=== PATIENT | female | born 1945 | race Caucasian/White ===

== ENCOUNTER → 2016-10-13 | Outpatient (CLI) | payer MEDICARE, BC ==
--- NOTE | 2016-10-13 16:24 | US ---
EXAMINATION TYPE: US venous doppler duplex LE LT DATE OF EXAM: 10/13/2016 4:11 PM COMPARISON: NONE CLINICAL HISTORY: 454.9 VARICOSE VEINS,M79.662 PAIN IN LT LOWER LEG. Pain left leg with walking SIDE PERFORMED: Left TECHNIQUE: The lower extremity deep venous system is examined utilizing real time linear array sonog aleida with graded compression, doppler sonography and color-flow sonography. VESSELS IMAGED: External Iliac Vein (EIV) Common Femoral Vein Deep Femoral Vein Greater Saphenous Vein * Femoral Vein Popliteal Vein Small Saphenous Vein * Proximal Calf Veins (* superficial vessels) Left Leg: No evidence of DVT, complex anechoic area left popliteal fossa = 3.0 x 1.1 x 2.3cm IMPRESSION: Grayscale, color doppler, spectral doppler imaging performed of the deep veins of the lo wer extremities. There is normal flow, compressibility, vascular waveforms bilaterally. No deep ruel ous thrombosis at or above the left knee. Semimembranosus gastrocnemius cyst present within the popli teal fossa.
== END | disposition home or self-care (01) ==
LOC: RADUSWWP 15:43
PROVIDERS: ATTEND Internal Medicine
DX: M71.22 Synovial cyst of popliteal space [Baker], left knee (principal); M79.662 Pain in left lower leg

== ENCOUNTER → 2018-07-21 | Outpatient (CLI) | payer MEDICARE, BC ==
--- NOTE | 2018-07-21 14:30 | US ---
EXAMINATION TYPE: US kidneys/renal and bladder DATE OF EXAM: 07/21/2018 COMPARISON: NONE CLINICAL HISTORY: R31.9 HEMATURIA. EXAM MEASUREMENTS: Right Kidney: 10.3 x 3.7 x 5.1 cm Left Kidney: 10.4 x 4.8 x 3.5 cm Right Kidney: No hydronephrosis or masses seen Left Kidney: No hydronephrosis or masses seen Bladder: wnl Bilateral Jets seen: Yes There is no evidence for hydronephrosis at this point in time. No nephrolithiasis is seen. No tuan s are identified. The urinary bladder is anechoic. Bilateral ureteral jets are seen. IMPRESSION: No sonographic evidence of nephrolithiasis or hydronephrosis. No suspicious renal mass is seen.
== END | disposition home or self-care (01) ==
LOC: RADUSWWP 12:39
PROVIDERS: ATTEND Internal Medicine
DX: R31.9 Hematuria, unspecified (principal)
CPT/HCPCS: 76770

== ENCOUNTER 2019-05-08 06:46 | Emergency (ER) | payer MEDICARE, BC ==
[2019-05-08 06:54] VITALS: RESP 18
[2019-05-08] MEDS ORDERED: MORPHINE SULFATE 4 MG/ML SYRINGE IM STA (07:00)
--- NOTE | 2019-05-08 07:06 | ED ---
Upper Extremity HPI - General Chief Complaint: Extremity Injury, Upper Stated Complaint: Fall, Arm injury Time Seen by Provider: 05/08/19 06:55 Source: patient, family, RN notes reviewed Mode of arrival: wheelchair Limitations: no limitations - History of Present Illness Initial Comments: This is a 74-year-old female presents emergency Department chief complaint right shoulder pain. Patient states that she was coming up her back steps vomiting and on-call states that she tripped falling forward striking her shoulder into a brick wall. Patient states she has severe pain in her right shoulder no significant head injury no loss conscious no headache, dizziness, neck pain. She is right-hand dominant no prior injuries. She states her arm feels tingly at this time states that she has full range motion of her hand. Patient hasn't went of lower extremity injury. - Related Data Allergies Allergy/AdvReac Type Severity Reaction Status Date / Time Penicillins Allergy Rash/Hives Verified 05/08/19 06:54 Review of Systems ROS Statement: Those systems with pertinent positive or pertinent negative responses have been documented in the HPI. ROS Other: All systems not noted in ROS Statement are negative. Past Medical History Past Medical History: Hyperlipidemia History of Any Multi-Drug Resistant Organisms: None Reported Past Surgical History: No Surgical Hx Reported Past Psychological History: No Psychological Hx Reported Smoking Status: Never smoker Past Alcohol Use History: None Reported Past Drug Use History: None Reported General Exam Limitations: no limitations General appearance: alert, in no apparent distress Head exam: Present: atraumatic, normocephalic, normal inspection Eye exam: Present: normal appearance, PERRL, EOMI. Absent: scleral icterus, conjunctival injection, periorbital swelling ENT exam: Present: normal exam, normal oropharynx, mucous membranes moist, TM's normal bilaterally, normal external ear exam Neck exam: Present: normal inspection, full ROM. Absent: tenderness, meningismus, lymphadenopathy Respiratory exam: Present: normal lung sounds bilaterally. Absent: respiratory distress, wheezes, rales, rhonchi, stridor Cardiovascular Exam: Present: normal rhythm, tachycardia, normal heart sounds. Absent: systolic murmur, diastolic murmur, rubs, gallop, clicks Extremities exam: Present: other (Right shoulder there is no obvious deformity no abrasions no ecchymosis,, there is moderate tenderness with palpation at the proximal humeral region no tenderness of the right elbow, right forearm or wrist neurovascular intact with cap refill less than 2 seconds) Back exam: Present: normal inspection, full ROM. Absent: tenderness, paraspinal tenderness, vertebral tenderness Neurological exam: Present: alert, oriented X3, CN II-XII intact, reflexes normal. Absent: motor sensory deficit Course Vital Signs 05/08/19 06:49 Temperature 97.6 F Pulse Rate 116 H Respiratory 18 Rate Blood Pressure 113/76 O2 Sat by Pulse 99 Oximetry Procedures - Orthopedic Splinting/Casting Injury #1 Side: right Upper Extremity Injury Location: shoulder, long arm Upper Extremity Immobilizer: sling/shoulder immobilizer, posterior splint, synthetic pre-padded splint Medical Decision Making - Medical Decision Making Patient presented for right arm injury. Patient has a mid humeral fracture. She was placed on long-arm splint, sling and will follow-up with orthopedics. She is neurovascularly intact. Pain is improved. Disposition Clinical Impression: Closed fracture of shaft of right humerus Disposition: HOME SELF-CARE Condition: Stable Instructions (If sedation given, give patient instructions): Arm Fracture in Adults (ED) Additional Instructions: Please return to the Emergency Department if symptoms worsen or any other c oncerns. Is patient prescribed a controlled substance at d/c from ED?: No Referrals: Steve Rodrigez MD [Primary Care Provider] - 1-2 days Keo Clifford MD [STAFF PHYSICIAN] - 1-2 days Time of Disposition: 07:25
[2019-05-08] MEDS ORDERED: ACET/COD 300 MG/30 MG STARTER PACK 6 TAB BTL PO STA (07:22)
--- NOTE | 2019-05-08 07:33 | XR ---
EXAMINATION TYPE: XR shoulder limited RT DATE OF EXAM: 05/08/2019 CLINICAL HISTORY: Fall injury with pain. TECHNIQUE: Two views of the right shoulder are attempted. COMPARISON: None. FINDINGS: There is acute comminuted displaced fracture proximal diaphysis with roughly 9 mm medial d istraction of largest distal fracture fragment. Likely some posterior distraction difficult to accura tely measure on attempted lateral view. Glenohumeral joint is maintained. Incidental moderate narrowi ng of acromioclavicular joint. The visualized ribs are intact and unremarkable. IMPRESSION: There is acute comminuted displaced fracture proximal diaphysis right humerus. (Initial encounter closed type posttraumatic fracture)
[2019-05-08 07:40] VITALS: TEMP 97.9
[2019-05-08 08:00] VITALS: BP 110/98; PULSE 100
== END 2019-05-08 07:57 | disposition home or self-care (01) ==
LOC: EC 06:46
DX: S42.351A Displaced comminuted fracture of shaft of humerus, right arm, initial encounter for closed fracture (principal); Z88.0 Allergy status to penicillin; W01.198A Fall on same level from slipping, tripping and stumbling with subsequent striking against other object, initial encounter
CPT/HCPCS: 73020; 99283; 29105; 96372; J2270

== ENCOUNTER → 2019-05-09 | Outpatient (CLI) | payer MEDICARE, BC | END | disposition home or self-care (01) | LOC: LABWHC1 09:15 | PROVIDERS: ATTEND Orthopaedic Surgery | DX: M25.511 Pain in right shoulder (principal); S42.301A Unspecified fracture of shaft of humerus, right arm, initial encounter for closed fracture; E55.9 Vitamin D deficiency, unspecified | CPT/HCPCS: 36415; 82306 ==

== ENCOUNTER → 2019-05-11 | Outpatient (CLI) | payer MEDICARE, BC ==
[2019-05-11 11:30] LABS: African American GFR (CKD) >90 (>60 ml/min/1.73 sqM); Blood Urea Nitrogen 13 mg/dL (7-17); Non-African American GFR(CKD) 88 (>60 ml/min/1.73 sqM)
--- NOTE | 2019-05-11 13:25 | CT ---
EXAMINATION TYPE: CT abdomen pelvis w con DATE OF EXAM: 05/11/2019 COMPARISON: None HISTORY: Uterine ca CT DLP: 1457 mGycm Automated exposure control for dose reduction was used. CONTRAST: CT scan of the abdomen pelvis is performed with IV Contrast, patient injected with 100 ml mL of Isovu e 300. FINDINGS- LUNG BASES-linear changes involving the lungs are most typical scar or atelectasis. The heart is enla rged.. LIVER/GB- No gross abnormality is appreciated. PANCREAS- No gross abnormality is seen. SPLEEN- No gross abnormality is seen. ADRENALS- No gross abnormality is seen. KIDNEYS/BLADDER-no hydronephrosis. There are subcentimeter hypodensities within both kidneys which mo st likely related to simple cysts statistically. There is a 1 cm area within the mid pole lateral cor elsie which does not meet the criteria of a cyst and should be correlated with ultrasound. This could b e related to previous cortical loss.. BOWEL- no bowel dilatation. Normal appendix. LYMPH NODES- No greater than 1cm abdominal or pelvic lymph nodes areappreciated. 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 Scoliosis with multilevel hypertrophic and degenerative change of the vertebral column noted.. OTHER- the endometrium of the uterus is markedly thickened and abnormal. Mixed attenuation likely re presenting a component of hemorrhage. Underlying mass in the differential diagnosis. Report called to referring clinician. Correlate for history of endometrial pathology or neoplasm. Small fat-containing anterior abdominal wall hernia noted. IMPRESSION- 1. Markedly abnormal appearance the endometrium which appears to be distended measuring 4.8 cm mixed attenuation likely representing a component of hemorrhage. Underlying neoplastic process in the endom etrium in the differential diagnosis correlate clinically. No surrounding adenopathy. 2. Bilateral simple renal cyst with an area of ill-defined attenuation in the mid lateral aspect of t he right kidney most likely related to cortical loss a chronic basis.
== END | disposition home or self-care (01) ==
LOC: RADCTMAIN 10:28
PROVIDERS: ATTEND Internal Medicine
DX: C55 Malignant neoplasm of uterus, part unspecified (principal); N28.1 Cyst of kidney, acquired
CPT/HCPCS: 82565; 84520; 74177; 36415; Q9967

== ENCOUNTER 2019-05-20 10:20 | Emergency (ER) | payer MEDICARE, BC ==
[2019-05-20 10:30] LABS: Glucose,Whole Blood 113 mg/dL (75-99)
[2019-05-20] MEDS ORDERED: SODIUM CHLORIDE 0.9% 1,000 ML IV STA (10:34)
[2019-05-20 10:35] VITALS: TEMP 98.1
--- NOTE | 2019-05-20 10:39 | ED ---
General Adult HPI - General Chief complaint: Neuro Symptoms/Deficit Stated complaint: Weakness Time Seen by Provider: 05/20/19 10:23 Source: patient, RN notes reviewed Mode of arrival: EMS Limitations: altered mental status - History of Present Illness Initial comments: Patient is a pleasant 74-year-old female presenting to the emergency department with weakness. Reportedly states last known well was 3 AM. Patient is a poor historian and offers little information. Patient does not have any complaints. Patient denies any history of irregular heart rate or atrial fibrillation. No headache. EMS did notice left-sided weakness. - Related Data Allergies Allergy/AdvReac Type Severity Reaction Status Date / Time Penicillins Allergy Rash/Hives Verified 05/20/19 10:35 Review of Systems ROS Statement: Those systems with pertinent positive or pertinent negative responses have been documented in the HPI. ROS Other: All systems not noted in ROS Statement are negative. Constitutional: Denies: fever Eyes: Denies: eye pain ENT: Denies: ear pain Respiratory: Denies: cough Cardiovascular: Denies: chest pain Endocrine: Denies: fatigue Gastrointestinal: Denies: abdominal pain Genitourinary: Denies: dysuria Musculoskeletal: Denies: back pain Skin: Denies: rash Neurological: Reports: as per HPI. Denies: headache Past Medical History Past Medical History: Hyperlipidemia History of Any Multi-Drug Resistant Organisms: None Reported Past Surgical History: No Surgical Hx Reported Past Psychological History: No Psychological Hx Reported Smoking Status: Never smoker Past Alcohol Use History: None Reported Past Drug Use History: None Reported General Exam Limitations: altered mental status General appearance: alert, in no apparent distress Head exam: Present: normocephalic Eye exam: Present: other (Eyes deviated to the right. Left-sided neglect.). Absent: EOMI (Unable to move eyes to the left or even midline) ENT exam: Present: normal oropharynx Neck exam: Present: normal inspection Respiratory exam: Present: normal lung sounds bilaterally Cardiovascular Exam: Present: tachycardia, irregular rhythm GI/Abdominal exam: Present: soft. Absent: tenderness Extremities exam: Present: normal inspection, other (Right arm brace) Neurological exam: Present: alert, altered Expanded Neurological exam: Present: protecting the airway, other (Slurred speech) Patient oriented to: Present: person. Absent: place, time Speech: Present: expressive aphasia Cranial nerves: EOM's Intact: Abnormal Left (Deviated to the right, unable to move eyes to the left), Facial Palsy with Forehead Movement: Abnormal Left (left Facial weakness) Sensory exam: Upper Extremity Light Touch: Abnormal Left, Lower Extremity Light Touch: Abnormal Left Motor strength exam: RUE: 5, LUE: 2/1, RLE: 5, LLE: 2/1 Eye Response: (4) open spontaneously Motor Response: (6) obeys commands Verbal Response: (4) confused conversation Psychiatric exam: Present: normal affect, normal mood Skin exam: Present: normal color Course Vital Signs 05/20/19 05/20/19 05/20/19 10:25 10:30 10:45 Temperature 98.1 F Pulse Rate 118 H 117 H 104 H Respiratory 16 16 16 Rate Blood Pressure 138/118 135/96 130/88 O2 Sat by Pulse 97 98 97 Oximetry 05/20/19 05/20/19 11:00 11:15 Temperature Pulse Rate 105 H 106 H Respiratory 18 18 Rate Blood Pressure 126/104 159/101 O2 Sat by Pulse 99 98 Oximetry - Reevaluation(s) Reevaluation #1: 05/20/19 10:47 Case was discussed with Dr. Nobles who will review films. He does not want any heparin at this time secondary to risk of bleeding. 05/20/19 10:53 Case was discussed with patient's who states patient did have some abnormal speech at 3 AM. He also states patient has a recent diagnosis of uterine cancer that they do not believe has spread and has plans for surgical removal next month. Patient did also fall and break her right arm just a couple of weeks ago. 05/20/19 11:39 Case was discussed with Dr. Liu at [facility] who will accept transfer. 05/20/19 11:40 Patient is not a TPA candidate secondary to onset greater than 4.5 hours. Patient will be provided balance and aspirin as requested by Dr. Nobles EKG Findings - EKG Comments: EKG Findings:: A. fib with RVR, rate 132. QRS 78. QT 302. QTC 447. Normal axis. Normal QRS. T wave inversion in V6. Medical Decision Making - Medical Decision Making Dr. nobles did review films and examined patient threw stroke robot and requests transfer to [facility]. - Lab Data Result diagrams: 05/20/19 11:07 05/20/19 11:07 Lab Results 05/20/19 05/20/19 05/20/19 Range/Units 10:28 11:07 11:07 WBC 12.1 H (3.8-10.6) k/uL RBC 5.05 (3.80-5.40) m/uL Hgb 16.2 H (11.4-16.0) gm/dL Hct 48.4 H (34.0-46.0) % MCV 96.0 (80.0-100.0) fL MCH 32.0 (25.0-35.0) pg MCHC 33.4 (31.0-37.0) g/dL RDW 12.4 (11.5-15.5) % Plt Count 353 (150-450) k/uL Neutrophils % 86 % Lymphocytes % 10 % Monocytes % 2 % Eosinophils % 1 % Basophils % 0 % Neutrophils # 10.4 H (1.3-7.7) k/uL Lymphocytes # 1.3 (1.0-4.8) k/uL Monocytes # 0.2 (0-1.0) k/uL Eosinophils # 0.1 (0-0.7) k/uL Basophils # 0.0 (0-0.2) k/uL Sodium 136 L (137-145) mmol/L Potassium 5.1 (3.5-5.1) mmol/L Chloride 105 (98-107) mmol/L Carbon Dioxide 19 L (22-30) mmol/L Anion Gap 12 mmol/L BUN 15 (7-17) mg/dL Creatinine 0.65 (0.52-1.04) mg/dL Est GFR (CKD-EPI)AfAm >90 (>60 ml/min/1.73 sqM) Est GFR (CKD-EPI)NonAf 88 (>60 ml/min/1.73 sqM) Glucose 111 H (74-99) mg/dL POC Glucose (mg/dL) 113 H (75-99) mg/dL POC Glu Relay Checker ID [place] Calcium 9.6 (8.4-10.2) mg/dL Total Bilirubin 2.0 H (0.2-1.3) mg/dL AST 46 H (14-36) U/L ALT 22 (4-34) U/L Alkaline Phosphatase 176 H (38-126) U/L Total Protein 7.7 (6.3-8.2) g/dL Albumin 4.5 (3.5-5.0) g/dL - Radiology Data Radiology results: report reviewed (Computed tomography scan of the brain shows no acute intercranial abnormality. Degenerative changes. Prominent osteoma right frontal. CT angios as discussed with radiologist has concern for right MCA occlusion.), image reviewed Disposition Clinical Impression: Cerebrovascular accident (CVA) Disposition: OTHER INSTITUTION NOT DEFINED Is patient prescribed a controlled substance at d/c from ED?: No Referrals: Steve Rodrigez MD [Primary Care Provider] - 1-2 days Time of Disposition: 11:40 - Out of Hospital Transfer - Req. Specs Out of Hospital Transfer - Requested Specifics: Other Emergency Center
--- NOTE | 2019-05-20 11:01 | CT ---
EXAMINATION TYPE: CT brain wo con for TPA DATE OF EXAM: 05/20/2019 COMPARISON: NONE HISTORY: Acute neuro deficits, stroke suspect CT DLP: 1102.8 mGycm Automated exposure control for dose reduction was used. FINDINGS: There are mild, generalized changes of sulcal prominence and ventriculomegaly compatible with mild at rophy. There is diffuse periventricular white matter change, compatible with chronic white matter isc hemic change. There is no acute focal lesion, mass effect or midline shift identified. I do not see e vidence of intracranial blood. There is a 2.8 cm osteoma seen arising from the right frontal bone. Visualized portions of the [place] sinuses and mastoids are clear. The bony calvarium is intact. IMPRESSION: 1. NO ACUTE INTRACRANIAL ABNORMALITY. 2. MILD DEGENERATIVE CHANGE. 3. 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
[2019-05-20 11:11] VITALS: RESP 18
[2019-05-20 11:22] LABS: Basophils % (A) 0 %; Eosinophils # (A) 0.1 k/uL (0-0.7); Eosinophils % (A) 1 %; HCT 48.4 % (34.0-46.0); HGB 16.2 gm/dL (11.4-16.0); Lymphocytes # (A) 1.3 k/uL (1.0-4.8); Lymphocytes % (A) 10 %; MCHC 33.4 g/dL (31.0-37.0); Mean Platelet Volume 7.2; Monocytes # (A) 0.2 k/uL (0-1.0); Monocytes % (A) 2 %; Neutrophils # (A) 10.4 k/uL (1.3-7.7); Neutrophils % (A) 86 %; Platelet Count 353 k/uL (150-450); RBC 5.05 m/uL (3.80-5.40); RDW 12.4 % (11.5-15.5); WBC 12.1 k/uL (3.8-10.6)
[2019-05-20 11:32] LABS: ALT 22 U/L (4-34); African American GFR (CKD) >90 (>60 ml/min/1.73 sqM); Albumin 4.5 g/dL (3.5-5.0); Anion Gap 12 mmol/L; Blood Urea Nitrogen 15 mg/dL (7-17); Calcium 9.6 mg/dL (8.4-10.2); Carbon Dioxide 19 mmol/L (22-30); Chloride 105 mmol/L (98-107); Glucose 111 mg/dL (74-99); Non-African American GFR(CKD) 88 (>60 ml/min/1.73 sqM); Sodium 136 mmol/L (137-145); Total Protein 7.7 g/dL (6.3-8.2)
[2019-05-20 11:34] LABS: AST 46 U/L (14-36); Alkaline Phosphatase 176 U/L (38-126); Potassium 5.1 mmol/L (3.5-5.1)
--- NOTE | 2019-05-20 11:42 | CT ---
EXAMINATION TYPE: CT angio head neck DATE OF EXAM: 05/20/2019 HISTORY: Acute neuro deficits, stroke suspect COMPARISON: Previous CT scan of the brain from earlier today. CT DLP: 519.4 mGycm. Automated Exposure Control for Dose Reduction was Utilized. TECHNIQUE: CTA scan of the neck is performed with IV Contrast, patient injected with 65 mL of Isovue 370, axial images are obtained, coronal and sagittal reformatted images are reviewed. Three-D recons tructed images are created on an independent workstation and reviewed. FINDINGS: Large osteoma seen arising from the right frontal bone is again identified. Visualized portions of the lungs are clear. There is mild aneurysmal dilatation of the proximal arch which has a maximal transverse diameter 3.6 cm. Prevertebral soft tissues are normal. There is only minimal calcification at the level of the carotid bulbs bilaterally. Vertebral body height and alignment are maintained. Atlantoaxial relationships are maintained. There is degenerative disc disease and hypertrophic spondylosis at virtually all levels. There is diffuse u ncovertebral joint disease. There is facet arthropathy on the right at C2-3 and bilaterally at C3-4, C4-5 and C5-6. There is a normal origin of the great vessels. As mentioned, there is only minimal atheromatous calci fication of the lower carotid bulbs. There is no evidence of a hemodynamically significant stenosis. The left vertebral artery is dominant. MRA of the [place] shows attenuation of the right vertebral artery as it approaches the skul l base. It does not appear occluded and does contribute to the basilar artery. The right middle cerebral artery appears occluded at the level of the trifurcation. There is some ret rograde filling of the middle cerebral artery branches on the right. 2 anterior cerebral arteries are patent. I'm unable to tell whether the anterior communicating artery is patent. The right posterior communicating artery appears patent. I cannot with accuracy The left posterior communicating artery is patent. The posterior circulation appears normal. On the basis of this examination and not as apparent on the previous study there appears to be mild, diffuse brain swelling and edema in the region of the middle cerebral artery territory. IMPRESSION: 1. OCCLUDED RIGHT MIDDLE CEREBRAL ARTERY AT THE LEVEL OF THE TRIFURCATION. 2. MILD, DIFFUSE RIGHT-SIDED BRAIN SWELLING IN THE DISTRIBUTION OF THE RIGHT MIDDLE CEREBRAL ARTERY. 3. COLLATERAL FLOW VIA THE EXTERNAL CAROTID ARTERY AND PROBABLY THE ANTERIOR COMMUNICATING ARTERY. 4. DEGENERATIVE CHANGES WITHIN THE SPINE. 5. 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 THIS REPORT WAS PHONED TO DR. DOE IN THE ER AT THE TIME OF REPORTING.
--- NOTE | 2019-05-20 11:43 | XR ---
EXAMINATION TYPE: XR chest 1V portable DATE OF EXAM: 05/20/2019 HISTORY: altered mental status. REFERENCE: NONE. FINDINGS: The heart is mildly enlarged. The lungs are clear. Pleural spaces are clear. IMPRESSION: CARDIOMEGALY.
[2019-05-20] MEDS ORDERED: MORPHINE SULFATE 2 MG/ML SYRINGE IVP STA (11:45)
[2019-05-20] MEDS ORDERED: TICAGRELOR 90 MG TAB PO STA (11:54)
[2019-05-20] MEDS ORDERED: ASPIRIN 81 MG PO STA (11:54)
[2019-05-20 12:04] LABS: Prothrombin Time 10.5 sec (9.0-12.0)
[2019-05-20 12:14] VITALS: BP 148/101; PULSE 105
[2019-05-20 12:20] LABS: Partial Thromboplastin Time 21.4 sec (22.0-30.0)
== END 2019-05-20 12:05 | disposition short-term general hospital (02) ==
LOC: EC 10:20
DX: I63.9 Cerebral infarction, unspecified (principal); R47.81 Slurred speech; R29.810 Facial weakness; H51.8 Other specified disorders of binocular movement; G81.94 Hemiplegia, unspecified affecting left nondominant side; R00.0 Tachycardia, unspecified; Z88.0 Allergy status to penicillin
CPT/HCPCS: 36415; 93005; 80053; 84484; 85025; 85610; 85730; 71045; 70496; 70450; 70498; 99285; 96374; 96361; J2270; Q9967

== ENCOUNTER 2019-06-06 15:37 | Inpatient (IN) | payer MEDICARE, BC ==
--- NOTE | 2019-06-06 16:00 | ED ---
Chest Pain HPI - General Stated Complaint: chest pain Time Seen by Provider: 06/06/19 15:37 Source: patient, EMS, RN notes reviewed, old records reviewed Mode of arrival: EMS Limitations: no limitations - History of Present Illness Initial Comments: Is a 74-year-old female history of CVA with left-sided hemiparesis as well as the right humerus fracture who started developing chest pain today. She was brought in from long term where she resides. No EKG demonstrated per paramedics. Patient states that the pain is achy started about one hour ago. Increase with deep breathing with severe also noted she has chronic A. fib and her heart rate was between 90 and 1 40 bpm. He has a history of hypertension A. fib and GERD uterine cancer and anemia. Off or phlegm production no rhinorrhea. MD Complaint: chest pain - Related Data Allergies Allergy/AdvReac Type Severity Reaction Status Date / Time Penicillins Allergy Rash/Hives Verified 05/20/19 10:35 Review of Systems ROS Statement: Those systems with pertinent positive or pertinent negative responses have been documented in the HPI. ROS Other: All systems not noted in ROS Statement are negative. EKG Findings - EKG Results: EKG: interpreted by MOHIT (Atrial fibrillation rate 117 QRS 82 QT since QTC 280/401 nonspecific T-wave configuration) Past Medical History Past Medical History: Hyperlipidemia History of Any Multi-Drug Resistant Organisms: None Reported Past Surgical History: No Surgical Hx Reported Past Psychological History: No Psychological Hx Reported Smoking Status: Never smoker Past Alcohol Use History: None Reported Past Drug Use History: None Reported General Exam - General Exam Comments Initial Comments: Is a well-developed well-nourished awake alert oriented x 3 female Limitations: no limitations General appearance: alert, anxious Head exam: Present: atraumatic, normocephalic, normal inspection Eye exam: Present: normal appearance, PERRL, EOMI. Absent: scleral icterus, conjunctival injection, periorbital swelling ENT exam: Present: normal exam, mucous membranes moist Neck exam: Present: normal inspection. Absent: tenderness, meningismus, lymphadenopathy Respiratory exam: Present: normal lung sounds bilaterally, chest wall tenderness. Absent: respiratory distress, wheezes, rales, rhonchi, stridor Cardiovascular Exam: Present: tachycardia, irregular rhythm, normal heart sounds. Absent: systolic murmur, diastolic murmur, rubs, gallop, clicks GI/Abdominal exam: Present: soft, normal bowel sounds. Absent: distended, tenderness, guarding, rebound, rigid Extremities exam: Present: normal inspection, full ROM, normal capillary refill. Absent: tenderness, pedal edema, joint swelling, calf tenderness Back exam: Present: normal inspection Neurological exam: Present: alert, oriented X3, CN II-XII intact Psychiatric exam: Present: normal affect, normal mood Skin exam: Present: warm, dry, intact, normal color. Absent: rash Course Vital Signs 06/06/19 06/06/19 06/06/19 15:41 15:45 16:00 Temperature 98.0 F Pulse Rate 117 H 112 H 128 H Pulse Rate [ Research Director ] Respiratory 18 17 17 Rate Blood Pressure 124/94 124/94 O2 Sat by Pulse 96 97 97 Oximetry 06/06/19 06/06/19 06/06/19 16:08 16:30 17:00 Temperature Pulse Rate 90 95 Pulse Rate [ 113 H Research Director ] Respiratory 17 17 Rate Blood Pressure 119/92 119/92 O2 Sat by Pulse 97 99 Oximetry Chest Pain MDM - MDM I did reevaluate patient several occasions she has improved with respect her heart rate chest pain is better. I did discuss the findings the patient and her . Patient be admitted for inpatient evaluation and chest pain and rapid atrial fibrillation in addition she does have a humerus fracture or is will be consulted patient has been in contact with Dr. Page. Disposition Clinical Impression: Chest pain, Rapid atrial fibrillation, History of CVA (cerebrovascular accident), Right humeral fracture Disposition: ADMITTED IP TO THIS HOSP Condition: Fair Referrals: Steve Rodrigez MD [Primary Care Provider] - 1-2 days
[2019-06-06 16:24] LABS: Basophils % (A) 0 %; Eosinophils # (A) 0.1 k/uL (0-0.7); Eosinophils % (A) 1 %; HCT 35.1 % (34.0-46.0); Lymphocytes # (A) 1.4 k/uL (1.0-4.8); Lymphocytes % (A) 13 %; MCH 31.2 pg (25.0-35.0); MCHC 31.9 g/dL (31.0-37.0); MCV 97.7 fL (80.0-100.0); Mean Platelet Volume 7.1; Monocytes # (A) 0.5 k/uL (0-1.0); Monocytes % (A) 4 %; Neutrophils # (A) 8.6 k/uL (1.3-7.7); Neutrophils % (A) 80 %; Platelet Count 363 k/uL (150-450); RBC 3.59 m/uL (3.80-5.40); RDW 14.1 % (11.5-15.5); WBC 10.7 k/uL (3.8-10.6)
[2019-06-06 16:27] LABS: HGB 11.2 gm/dL (11.4-16.0)
[2019-06-06 16:37] LABS: Partial Thromboplastin Time 23.6 sec (22.0-30.0); Prothrombin Time 10.1 sec (9.0-12.0)
[2019-06-06 16:45] LABS: ALT 34 U/L (4-34); AST 45 U/L (14-36); African American GFR (CKD) >90 (>60 ml/min/1.73 sqM); Albumin 3.5 g/dL (3.5-5.0); Alkaline Phosphatase 219 U/L (38-126); Anion Gap 10 mmol/L; Blood Urea Nitrogen 15 mg/dL (7-17); Carbon Dioxide 27 mmol/L (22-30); Chloride 98 mmol/L (98-107); Creatine Kinase 29 U/L (30-135); Glucose 140 mg/dL (74-99); Magnesium 1.9 mg/dL (1.6-2.3); Non-African American GFR(CKD) >90 (>60 ml/min/1.73 sqM); Potassium 4.1 mmol/L (3.5-5.1); Sodium 135 mmol/L (137-145); Total Bilirubin 0.5 mg/dL (0.2-1.3); Total Protein 6.3 g/dL (6.3-8.2)
--- NOTE | 2019-06-06 16:47 | XR ---
EXAMINATION TYPE: XR chest 2V DATE OF EXAM: 06/06/2019 COMPARISON: 05/20/2019 HISTORY: Chest pain TECHNIQUE: FINDINGS: There is mild linear density at the left lung base. There is no heart failure. There are no hilar masses. There is blunting of the posterior costophrenic angles.. There is mild thoracic dextro scoliosis. IMPRESSION: There is mild atelectasis left lung base that appears new compared to last exam. No heart failure. Small bilateral pleural effusions.
[2019-06-06] MEDS ORDERED: ARTIFICIAL TEARS-HYPROMELLOSE DROPS 15 ML BTL BOTH EYES PRN (17:55)
[2019-06-06] MEDS ORDERED: SODIUM CHLORIDE 0.65% NASAL SPRAY 44 ML BTL INTRANASAL PRN (17:55)
[2019-06-06] MEDS ORDERED: BENZOCAINE/MENTHOL LOZENG 1 EACH LOZENGE MUCOUS MEM PRN (17:55)
[2019-06-06] MEDS: ACETAMINOPHEN TAB 325 MG TAB PO PRN (19:37)
[2019-06-06] MEDS: ATORVASTATIN 40 MG TAB PO SCH (19:42)
[2019-06-06] MEDS: PANTOPRAZOLE 40 MG TABLET PO SCH (19:42)
[2019-06-06] MEDS: NITROGLYCERIN SL TABS 0.4 MG TAB SUBLINGUAL PRN ×3 (19:54→20:09)
[2019-06-06] MEDS ORDERED: METOPROLOL TARTRATE 25 MG TAB PO STA (20:24)
[2019-06-06] MEDS ORDERED: HYDROmorphone 0.5 MG/0.5 ML SYRINGE IVP STA (20:48)
[2019-06-06] MEDS ORDERED: DILTIAZEM DRIP BOLUS FROM BAG 1 MG SOLN IV ONE (20:50)
[2019-06-06] MEDS ORDERED: METOPROLOL TARTRATE 25 MG TAB PO SCH (21:00)
[2019-06-06] MEDS ORDERED: DILTIAZEM 125 MG in SODIUM CHLORIDE 0.9% 100 ML IV SCH (21:00)
--- NOTE | 2019-06-06 21:15 | P.HPIM ---
History of Present Illness H&P Date: 06/06/19 Patient is a 74-year-old female with a PMH of hyperlipidemia and Uterine ca (recently diagnosed) was sent to the ED from [facility] for chest discomfort. The patient recently suffered a right humeral fracture on 05/08/19, for which she was following with Dr. Page. 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 As for the patient's at the bedside, she was likely diagnosed with A. fib as the culprit of her stroke. The notes that the java flex developer and the neurologist at [facility] had decided that the patient should not be started on anticoagulation. He isn't sure regarding the procedures that the patient underwent at [facility]. The patient was subsequently discharged to rehab facility 3 days ago, where she was participating and having some improvement. Earlier today however, at around noon, the patient suddenly developed a substernal sharp, 10 out of 10 chest discomfort, nonradiating, worsened with deep breathing, with no clear alleviating factors. The patient noted that the pain is somewhat intermittent, and noted that it was a 4 out of 10 at the time of interview. She reports that she's never had such pain in the past and had never seen a java flex developer prior to her admission to [facility]. She also denied associated shortness of breath, nausea, vomiting, palpitations, diaphoresis, or dizziness. She also denied leg pain or swelling. The patient further denied cough, fever, chills, abdominal pain, or diarrhea. The patient underwent an extensive evaluation in the emergency room with EKG showing A. fib with RVR at 117 beats per minute with occasional PVCs. Chest x-ray revealed left basilar atelectasis with small bilateral pleural effusions. Laboratory evaluation revealed a troponin less than 0.012, BNP 711, WBC count and 0.7, hemo globin 11.2, sodium 135, potassium 4.1, alk phos 219, CK 29, BUN 15, and creatinine 0.60. The patient was started on Cardizem infusion and is being admitted for further management. Review of Systems Pertinent positives and negatives as discussed in HPI, a complete review of systems was performed and all other systems are negative. Past Medical History Past Medical History: Hyperlipidemia History of Any Multi-Drug Resistant Organisms: None Reported Past Surgical History: No Surgical Hx Reported Past Psychological History: No Psychological Hx Reported Smoking Status: Never smoker Past Alcohol Use History: None Reported Past Drug Use History: None Reported Medications and Allergies Home Medications Medication Instructions Recorded Confirmed Type Acetaminophen Tab [Tylenol] 650 mg PO Q4H PRN 06/06/19 06/06/19 History Artificial Tears-Hypromellose 1 drops BOTH EYES TID PRN 06/06/19 06/06/19 History [Artificial Tear Drops] Aspirin 81 mg PO DAILY 06/06/19 06/06/19 History Atorvastatin [Lipitor] 40 mg PO HS 06/06/19 06/06/19 History Benzocaine/Menthol Lozeng [Cepacol 1 lozenge MUCOUS MEM Q4HR PRN 06/06/19 History lozenge] Heparin Sodium,Porcine [Heparin 5,000 unit SQ Q8H 06/06/19 06/06/19 History Sodium] Metoprolol Tartrate [Lopressor] 25 mg PO BID 06/06/19 06/06/19 History Omeprazole 20 mg PO HS 06/06/19 06/06/19 History Sodium Chloride [[place]] 1 spray EA NOSTRIL DAILY PRN 06/06/19 06/06/19 History Allergies Allergy/AdvReac Type Severity Reaction Status Date / Time Penicillins Allergy Rash/Hives Verified 06/06/19 17:52 Physical Exam Vitals: Vital Signs Temp Pulse Pulse Resp BP Pulse Ox 06/06/19 20:06 110 H 18 125/74 95 06/06/19 17:00 95 17 119/92 99 06/06/19 16:30 90 17 119/92 97 06/06/19 16:08 113 H 06/06/19 16:00 128 H 17 124/94 97 06/06/19 15:45 112 H 17 97 06/06/19 15:41 98.0 F 117 H 18 124/94 96 Intake and Output 06/06/19 06/06/19 06/06/19 06:59 14:59 22:59 Other: Weight 82.1 kg General: non toxic, no distress, appears at stated age, obese Derm: no unusual rashes/lesions no unusual ecchymoses, warm, dry Head: atraumatic, normocephalic, symmetric Eyes: EOMI, no lid lag, anicteric sclera, pupils equal round reactive to light ENT: Nose and ears atraumatic, no thrush, no pharyngeal erythema Neck: No thyromegaly, no cervical lymphadenopathy, trachea midline, supple Mouth: no lip lesion, mucus membranes moist Cardiovascular: S1S2 irregularly irregular, no murmur, positive posterior tibial pulse bilateral, no edema, capillary refill less than 2 seconds Lungs: Mild bibasilar rales with no wheezing or rhonchi appreciated, no accessory muscle use Abdominal: soft, nontender to palpation, no guarding, no appreciable organomegaly, normal bowel sounds Ext: no gross muscle atrophy, left upper extremity and lower extremity strength is 0 out of 5, right sided strength 5 out of 5, no contractures, no calf tenderness noted Neuro: Tongue deviation to the left upon protrusion, mild left facial droop, light touch intact all 4 extremities Psych: Alert, oriented, appropriate affect Results CBC & Chem 7: 06/06/19 16:10 06/06/19 16:10 Labs: Abnormal Lab Results - Last 24 Hours (Table) 06/06/19 06/06/19 Range/Units 16:10 16:10 WBC 10.7 H (3.8-10.6) k/uL RBC 3.59 L (3.80-5.40) m/uL Hgb 11.2 L D (11.4-16.0) gm/dL Neutrophils # 8.6 H (1.3-7.7) k/uL Sodium 135 L (137-145) mmol/L Glucose 140 H (74-99) mg/dL AST 45 H (14-36) U/L Alkaline Phosphatase 219 H (38-126) U/L Creatine Kinase 29 L (30-135) U/L Assessment and Plan Plan: Chest pain, possibly secondary to A. fib with RVR vs PE vs ACS -Obtain d-dimer to rule out PE (high risk due to immobility and current malignancy) -Cardiac monitoring -Trend troponins -Cardiology consulted A. fib with RVR -Unclear why the patient is not currently on anticoagulation since was diagnosed at [facility] after recent CVA -Records were ordered -Cardiology consult -Hold off on any anti-coagulation for now -Continue Cardizem infusion -Increase Lopressor home dose to 50 mg twice a day -Continue with aspirin home dose Recent CVA with dense left sided paralysis -Review the records from [facility] -Continue with aspirin and Lipitor -Physical therapy -Aspiration precautions Recent right-sided humeral fracture -Patient was scheduled to see Dr. Page as an outpatient though was unable to -Requesting to see him during her hospitalization -Consult placed Mild leukocytosis -Possibly due to acute stressor -Monitor CBC Elevated alkaline phosphatase -Unclear etiology for now -No complaints of abdominal pain -If persists, consider right upper quadrant imaging HLD -C/w lipitor Uterine Ca, recently diagnosed -Patient following with [facility] oncology as an outpatient DVT prophylaxis -Heparin subq The patient is admitted with an anticipated greater than 2 midnight stay for evaluation of chest pain CODE STATUS: Full Code Discussed with: Patient Anticipated discharge date: 2-[address]: [facility] A total of 45 minutes was spent on the care of this complex patient more than 50% of the time was spent in counseling and care coordination.
[2019-06-06] MEDS: METOPROLOL TARTRATE 25 MG TAB PO SCH (22:01)
[2019-06-06] MEDS ORDERED: MORPHINE SULFATE 2 MG/ML SYRINGE IVP ONE (23:30)
[2019-06-07] MEDS ORDERED: HEPARIN SODIUM,PORCINE 5,000 UNIT/ML 1 ML VIAL SQ SCH
--- NOTE | 2019-06-07 00:16 | CT ---
EXAMINATION TYPE: CT chest angio for PE DATE OF EXAM: 06/07/2019 COMPARISON: None HISTORY: Patient presents with elevated d-dimer and chest pain. CT DLP: 561.7 mGycm Automated exposure control for dose reduction was used. CONTRAST: Performed with IV Contrast, patient injected with 100 mL mL of Isovue 370. There are 3-D post processed images. There is pleural thickening and atelectasis at the posterior lung bases. There is basilar pulmonary a irspace infiltrates. Heart is enlarged. There is no pericardial effusion. There are large filling defects in the right lower lobe pulmonary artery. There are a few filling defects also in the left lower lobe pulmonary artery in the anterior basal se gment branch. There are no hilar masses. There is no mediastinal adenopathy. There is some spurring in the thoracic spine. There is mild thoracic kyphotic deformity. IMPRESSION: Multiple bilateral lower lobe pulmonary emboli that are predominantly on the right side. Mild cardiom egaly. Pleural effusions and basilar pulmonary infiltrates and atelectasis. Congestive heart failure is possible. This exam was discussed with the patient's nurse Coty at 12:15 AM.
[2019-06-07] MEDS ORDERED: HEPARIN SODIUM,PORCINE 10,000 UNIT/ML 1 ML VIAL IV ONE (00:48)
[2019-06-07] MEDS ORDERED: HEPARIN SODIUM,PORCINE 5,000 UNIT/ML 1 ML VIAL IV PRN (00:48)
--- NOTE | 2019-06-07 00:49 | P.PN ---
Progress Note - Text Progress Note Date: 06/07/19 The patient's d-dimer resulted as 13.51. A stat CT angiogram chest was ordered, which revealed multiple bilateral pulmonary emboli, predominantly on the right side. Reviewed the previously obtain records from [facility]. The records did not include a discharge summary nor the consult notes from GI or neurology. Further records were requested and was subsequently reviewed upon receipt. It appears that the patient experienced hematemesis and epistaxis during her stay at [facility], requiring 3 units of PRBCs. She underwent an EGD which revealed a Olimpia-Wyman tear at the GE junction which was clipped, presumed to be traumatic from NG tube insertion. ENT was also consulted though did not find any source for the epistaxis. Due to the extent of the bleeding, the patient was not started on an oral anticoagulant upon discharge. The case was discussed with Dr Leggett who recommended initiating Heparin infusion. Will place a GI consult for risk stratification. Start high intensity Heparin infusion with CBC monitoring q8h.
[2019-06-07] MEDS: HEPARIN SOD,PORK IN 0.45% NACL 25,000 UNIT in 0.45% NACL 1 250ML.BAG IV SCH ×2 (01:26→17:57)
[2019-06-07 03:55] LABS: HCT 32.3 % (34.0-46.0); HGB 10.3 gm/dL (11.4-16.0); Hypochromasia Slight; MCH 31.3 pg (25.0-35.0); MCHC 31.7 g/dL (31.0-37.0); MCV 98.7 fL (80.0-100.0); Mean Platelet Volume 7.2; Platelet Count 347 k/uL (150-450); RBC 3.27 m/uL (3.80-5.40); RDW 14.2 % (11.5-15.5); WBC 11.4 k/uL (3.8-10.6)
[2019-06-07 04:05] LABS: Cholesterol 140 mg/dL (<200); HDL Cholesterol 44 mg/dL (40-60); LDL Cholesterol,Calculated 82 mg/dL (0-99); Triglycerides 70 mg/dL (<150)
[2019-06-07] MEDS ORDERED: MORPHINE SULFATE 2 MG/ML SYRINGE IVP STA (05:17)
[2019-06-07] MEDS: ASPIRIN 81 MG PO SCH (07:42)
[2019-06-07] MEDS: METOPROLOL TARTRATE 25 MG TAB PO SCH ×3 (07:42→21:23)
--- NOTE | 2019-06-07 08:33 | P.CRDCN ---
History of Present Illness Consult date: 06/07/19 Requesting physician: Samantha Molina Consult reason: chest pain, atrial fibrillation Chief complaint: Chest pain History of present illness: This is 74-year-old female, most of the history was obtained from her is at bedside. She follows with Dr. Lowe as her career development coordinator, Dr. Rodrigez is her primary care doctor. She recently had an admission to [facility] at which time the patient suffered an acute CVA with dense left sided paralysis, this was in May. The patient was noted there to have atrial fibrillation according to the notes in the chart, there is a statement documented that the spoke with the career development coordinator and neurologist who decided that the patient should not be started on anticoagulation. We will get records from there to clarify this. She presented to the hospital from the rehab with symptoms of chest discomfort, very atypical, hurts when she takes a deep breath or when she swallows. We were also consulted for atrial fibrillation. Her EKG on arrival here showed A. fib with a moderately rapid ventricular response on arrival. Chest x-ray shows mild atelectasis in the left lung base that appears to be new as compared with last exam. Small bilateral pleural effusions. CTA of the chest was performed which revealed multiple bilateral lower lobe pulmonary embolism predominantly on the right side. Pleural effusions and bibasilar pulmonary infiltrates. Possible CHF. The patient has been initiated on IV heparin here. Blood pressure 122/70 with a heart rate of 80 this morning, 99% on 2 L of oxygen. White blood cell count 11. 4, hemoglobin on admission 11.2, 10.3 this morning. Platelet count 347. D- dimer 13.5. Sodium 135, potassium 4.1, BUN 15, creatinine 0.6. Troponins are negative 3. BNP level 711. At the time of my examination this morning, patient appears to be comfortable, until she tries to take a deep breath at which time she states that her chest hurts. Data from [facility] has been faxed over here, it appears that the patient had a right MCA CVA, she also had acute blood loss anemia while there required blood transfusion, new-onset atrial fibrillation, hyperlipidemia. Patient was diagnosed there with new onset atrial fibrillation according to the notes cardiology did recommend oral anticoagu lation if cleared by neurology but unfortunately the patient developed melena and epistaxis, GI was then consulted recommended an EGD, the EGD showed no active bleed but there was a tear at the GE junction which was clipped patient at that time was recommended only to be on aspirin and perhaps anticoagulation down the road according to the documentation from there. Patient was also noted to have a CTA of the chest performed there which was somewhat limited exam for pulmonary embolism due to suboptimal contrast. There was a filling defect noted with suspicion for PE. Echocardiogram with Doppler study was performed there which revealed an ejection fraction of 55% negative bubble study. Past Medical History Past Medical History: Hyperlipidemia Additional Past Medical History / Comment(s): stroke (05/2019) left side paralysis History of Any Multi-Drug Resistant Organisms: None Reported Past Surgical History: No Surgical Hx Reported Past Anesthesia/Blood Transfusion Reactions: No Reported Reaction Past Psychological History: No Psychological Hx Reported Smoking Status: Never smoker Past Alcohol Use History: None Reported Past Drug Use History: None Reported - Past Family History Father Family Medical History: Unable to Obtain Medications and Allergies Home Medications Medication Instructions Recorded Confirmed Type Acetaminophen Tab [Tylenol] 650 mg PO Q4H PRN 06/06/19 06/06/19 History Artificial Tears-Hypromellose 1 drops BOTH EYES TID PRN 06/06/19 06/06/19 History [Artificial Tear Drops] Aspirin 81 mg PO DAILY 06/06/19 06/06/19 History Atorvastatin [Lipitor] 40 mg PO HS 06/06/19 06/06/19 History Benzocaine/Menthol Lozeng [Cepacol 1 lozenge MUCOUS MEM Q4HR PRN 06/06/19 06/06/19 History lozenge] Heparin Sodium,Porcine [Heparin 5,000 unit SQ Q8H 06/06/19 06/06/19 History Sodium] Metoprolol Tartrate [Lopressor] 25 mg PO BID 06/06/19 06/06/19 History Omeprazole 20 mg PO HS 06/06/19 06/06/19 History Sodium Chloride [[place]] 1 spray EA NOSTRIL DAILY PRN 06/06/19 06/06/19 History Allergies Allergy/AdvReac Type Severity Reaction Status Date / Time Penicillins Allergy Rash/Hives Verified 06/06/19 17:52 Physical Exam Vitals: Vital Signs Temp Pulse Pulse Resp BP BP Pulse Ox 06/07/19 04:23 98.0 F 89 16 122/78 99 06/06/19 23:28 94 16 118/66 96 06/06/19 21:42 98.0 F 89 18 93/53 95 06/06/19 21:17 98.0 F 85 16 136/64 96 06/06/19 20:06 110 H 18 125/74 95 06/06/19 17:00 95 17 119/92 99 06/06/19 16:30 90 17 119/92 97 06/06/19 16:08 113 H 06/06/19 16:00 128 H 17 124/94 97 06/06/19 15:45 112 H 17 97 06/06/19 15:41 98.0 F 117 H 18 124/94 96 Intake and Output 06/06/19 06/07/19 06/07/19 22:59 06:59 14:59 Intake Total 100 Balance 100 Intake: Oral 100 Other: Voiding Method Diaper Diaper Incontinent Incontinent Weight 82.1 kg 68 kg PHYSICAL EXAMINATION: GENERAL: 74-year-old female in no acute distress at the time of my e xamination HEENT: Head is atraumatic, normocephalic. Pupils equal, round. Sclera anicteric. Conjunctiva are clear. Mucous membranes of the mouth are moist. Neck is supple. There is no elevated jugular venous pressure. No carotid bruit is heard. HEART EXAMINATION: Heart S1 and S2 irregularly irregular a systolic murmur is heard CHEST EXAMINATION: Lungs reveal scattered rhonchi throughout ABDOMEN: Soft, nontender. Bowel sounds are heard. No organomegaly noted. EXTREMITIES: 2+ peripheral pulses with no evidence of peripheral edema and no calf tenderness noted. NEUROLOGIC [patient is awake, alert and oriented , mild left facial droop, left- sided weakness. Results 06/07/19 03:30 06/06/19 16:10 Cardiac Enzymes 06/06/19 06/06/19 06/06/19 Range/Units 16:10 16:10 21:24 AST 45 H (14-36) U/L Troponin I <0.012 <0.012 (0.000-0.034) ng/mL 06/07/19 Range/Units 03:30 AST (14-36) U/L Troponin I <0.012 (0.000-0.034) ng/mL Coagulation 06/06/19 06/07/19 Range/Units 16:10 05:52 PT 10.1 (9.0-12.0) sec APTT 23.6 >200.0 H* (22.0-30.0) sec Lipids 06/07/19 Range/Units 03:30 Triglycerides 70 (<150) mg/dL Cholesterol 140 (<200) mg/dL HDL Cholesterol 44 (40-60) mg/dL CBC 06/06/19 06/07/19 Range/Units 16:10 03:30 WBC 10.7 H 11.4 H (3.8-10.6) k/uL RBC 3.59 L 3.27 L (3.80-5.40) m/uL Hgb 11.2 L D 10.3 L (11.4-16.0) gm/dL Hct 35.1 32.3 L (34.0-46.0) % Plt Count 363 347 (150-450) k/uL Comprehensive Metabolic Panel 06/06/19 Range/Units 16:10 Sodium 135 L (137-145) mmol/L Potassium 4.1 (3.5-5.1) mmol/L Chloride 98 (98-107) mmol/L Carbon Dioxide 27 (22-30) mmol/L BUN 15 (7-17) mg/dL Creatinine 0.60 (0.52-1.04) mg/dL Glucose 140 H (74-99) mg/dL Calcium 9.0 (8.4-10.2) mg/dL AST 45 H (14-36) U/L ALT 34 (4-34) U/L Alkaline Phosphatase 219 H (38-126) U/L Total Protein 6.3 (6.3-8.2) g/dL Albumin 3.5 (3.5-5.0) g/dL Current Medications Generic Name Dose Route Start Last Admin Trade Name Freq PRN Reason Stop Dose Admin Acetaminophen 650 mg 06/06/19 17:55 06/06/19 19:37 Tylenol Tab PO 650 mg Q4H PRN Administration Fever Artificial Tears 1 drops 06/06/19 17:55 Artificial Tear Drops BOTH EYES TID PRN Dry Eye(s) Aspirin 81 mg 06/07/19 09:00 06/07/19 07:42 Aspirin PO 81 mg DAILY AV Administration Atorvastatin Calcium 40 mg 06/06/19 21:00 06/06/19 19:42 Lipitor PO 40 mg HS AV Administration Benzocaine/Menthol 1 each 06/06/19 17:55 Cepacol Lozenge MUCOUS MEM Q4HR PRN Sore Throat Heparin Sodium (Porcine) 0 unit 06/07/19 00:48 Heparin IV PER PROTOCOL PRN Low PTT Protocol Heparin Sodium/Sodium Chloride 250 mls @ 14.778 mls/hr 06/07/19 01:00 06/07/19 01:26 25,000 unit/ Sodium Chloride IV 18 units/kg/hr .[id number] AV 14.778 mls/hr Administration Protocol 18 UNITS/KG/HR Metoprolol Tartrate 25 mg 06/06/19 22:00 06/07/19 07:42 Lopressor PO 25 mg TID AV Administration Nitroglycerin 0.4 mg 06/06/19 17:36 06/06/19 20:09 Nitrostat SUBLINGUAL 0.4 mg Q5M PRN Administration Chest Pain Pantoprazole Sodium 40 mg 06/06/19 21:00 06/06/19 19:42 Protonix PO 40 mg HS AV Administration Sodium Chloride 1 spray 06/06/19 17:55 [place] INTRANASAL DAILY PRN dry nares Intake and Output 06/06/19 06/07/19 06/07/19 22:59 06:59 14:59 Intake Total 100 Balance 100 Intake: Oral 100 Other: Voiding Method Diaper Diaper Incontinent Incontinent Weight 82.1 kg 68 kg 06/07/19 03:30 06/06/19 16:10 EKG Interpretations (text) EKG shows atrial fibrillation with moderately rapid ventricular response, occasional PVC. Assessment and Plan Plan: Assessment and plan #1 chest pain, pleuritic in nature, not suggestive of acute coronary syndrome. Trops negative 3. EKG shows A. fib with moderately rapid response #2 chronic persistent atrial fibrillation, not on anticoagulation because of recent GI bleed #3 multiple pulmonary embolism, currently on IV heparin #4 recent CVA #5 hypertension #6 hyperlipidemia #7 recent GI bleed Plan We will obtain a repeat echocardiogram with Doppler study. Continue IV heparin . Continue metoprolol. Further recommendations to follow. DNP note has been reviewed, I agree with a documented findings and plan of care. Patient was seen and examined.
[2019-06-07] MEDS ORDERED: METOPROLOL TARTRATE 25 MG TAB PO SCH (09:00)
[2019-06-07] MEDS ORDERED: ASPIRIN 325 MG TAB PO SCH (09:00)
--- NOTE | 2019-06-07 10:52 | P.CNOR ---
History of Present Illness - [facility] Consult date: 06/07/19 Consult reason: fracture (Right humerus) History of present illness: This is a 74-year-old female admitted with chest pain. She has history of a recent CVA and subsequent GI bleed after anticoagulation therapy. We have been following her in our office for a midshaft oblique fracture of the right humerus. Due to her multiple medical comorbidities it was decided to treat her fracture nonoperatively. She is currently in a clamshell brace to the right upper extremity. She was due for follow-up in our office but was unable to make her appointment secondary to her current admission. We're consulted for [facility] follow-up. Past Medical History Past Medical History: Hyperlipidemia Additional Past Medical History / Comment(s): stroke (05/2019) left side paralysis History of Any Multi-Drug Resistant Organisms: None Reported Past Surgical History: No Surgical Hx Reported Past Anesthesia/Blood Transfusion Reactions: No Reported Reaction Past Psychological History: No Psychological Hx Reported Smoking Status: Never smoker Past Alcohol Use History: None Reported Past Drug Use History: None Reported - Past Family History Father Family Medical History: Unable to Obtain Medications and Allergies Home Medications Medication Instructions Recorded Confirmed Type Acetaminophen Tab [Tylenol] 650 mg PO Q4H PRN 06/06/19 06/06/19 History Artificial Tears-Hypromellose 1 drops BOTH EYES TID PRN 06/06/19 06/06/19 History [Artificial Tear Drops] Aspirin 81 mg PO DAILY 06/06/19 06/06/19 History Atorvastatin [Lipitor] 40 mg PO HS 06/06/19 06/06/19 History Benzocaine/Menthol Lozeng [Cepacol 1 lozenge MUCOUS MEM Q4HR PRN 06/06/19 06/06/19 History lozenge] Heparin Sodium,Porcine [Heparin 5,000 unit SQ Q8H 06/06/19 06/06/19 History Sodium] Metoprolol Tartrate [Lopressor] 25 mg PO BID 06/06/19 06/06/19 History Omeprazole 20 mg PO HS 06/06/19 06/06/19 History Sodium Chloride [[place]] 1 spray EA NOSTRIL DAILY PRN 06/06/19 06/06/19 History Allergies Allergy/AdvReac Type Severity Reaction Status Date / Time Penicillins Allergy Rash/Hives Verified 06/06/19 17:52 Physical Examination This is a pleasant 74-year-old female in no acute distress. She is alert and oriented 3. Her is present at bedside. Exam of the right upper extremity reveals a clamshell type brace to the upper arm. The brace appears to be well fitting. There are some areas that are causing some abrasion to the breast and posterior shoulder. No erythema or sign of infection. She has f airly good elbow, wrist and finger motion without difficulty or pain. Neurovascular status to the upper extremity is intact. The remainder of her musculoskeletal exam is unremarkable. Results There are no new x-rays of the right arm. X-rays from May reveal a displ aced midshaft oblique humeral fracture. - Labs Labs: Abnormal Lab Results - Last 24 Hours (Table) 06/06/19 06/06/19 06/06/19 Range/Units 16:10 16:10 21:24 WBC 10.7 H (3.8-10.6) k/uL RBC 3.59 L (3.80-5.40) m/uL Hgb 11.2 L D (11.4-16.0) gm/dL Hct (34.0-46.0) % Neutrophils # 8.6 H (1.3-7.7) k/uL APTT (22.0-30.0) sec D-Dimer 13.51 H (<0.60) mg/L FEU Sodium 135 L (137-145) mmol/L Glucose 140 H (74-99) mg/dL AST 45 H (14-36) U/L Alkaline Phosphatase 219 H (38-126) U/L Creatine Kinase 29 L (30-135) U/L 06/07/19 06/07/19 Range/Units 03:30 05:52 WBC 11.4 H (3.8-10.6) k/uL RBC 3.27 L (3.80-5.40) m/uL Hgb 10.3 L (11.4-16.0) gm/dL Hct 32.3 L (34.0-46.0) % Neutrophils # (1.3-7.7) k/uL APTT >200.0 H* (22.0-30.0) sec D-Dimer (<0.60) mg/L FEU Sodium (137-145) mmol/L Glucose (74-99) mg/dL AST (14-36) U/L Alkaline Phosphatase (38-126) U/L Creatine Kinase (30-135) U/L H & H 06/06/19 06/07/19 Range/Units 16:10 03:30 Hgb 11.2 L D 10.3 L (11.4-16.0) gm/dL Hct 35.1 32.3 L (34.0-46.0) % Coagulation 06/06/19 Range/Units 16:10 INR 1.0 (<1.2) Result Diagrams: 06/07/19 03:30 06/06/19 16:10 Assessment and Plan (1) Chest pain Current Visit: Yes Status: Acute Code(s): R07.9 - CHEST PAIN, UNSPECIFIED SNOMED Code(s): 12266045 (2) Rapid atrial fibrillation Current Visit: Yes Status: Acute Code(s): I48.91 - UNSPECIFIED ATRIAL FIBRILLATION SNOMED Code(s): 271100660 (3) Right humeral fracture Current Visit: Yes Status: Acute Code(s): S42.301A - UNSP FRACTURE OF SHAFT OF HUMERUS, RIGHT ARM, INIT SNOMED Code(s): 11007315 (4) History of GI bleed Current Visit: Yes Status: Acute Code(s): Z87.19 - PERSONAL HISTORY OF OTHER DISEASES OF THE DIGESTIVE SYSTEM SNOMED Code(s): 309786495 Plan: The clinical findings are discussed with the patient and her . I placed some padding around the brace to prevent skin breakdown. I've ordered a an x- ray of the right humerus for follow-up. We will continue to follow and await x- ray results. The plan will most likely be to continue conservative treatment.
[2019-06-07 11:15] LABS: HCT 35.2 % (34.0-46.0); HGB 11.1 gm/dL (11.4-16.0); Hypochromasia Slight; MCH 31.3 pg (25.0-35.0); MCHC 31.5 g/dL (31.0-37.0); MCV 99.5 fL (80.0-100.0); Macrocytosis Slight; Mean Platelet Volume 8.1; Platelet Count 343 k/uL (150-450); RBC 3.54 m/uL (3.80-5.40); RDW 14.1 % (11.5-15.5); WBC 11.2 k/uL (3.8-10.6)
--- NOTE | 2019-06-07 11:51 | ECHOF ---
Referral Reason:afib MEASUREMENTS -------- HEIGHT: 160.0 cm WEIGHT: 67.6 kg BP: 122/78 RVIDd: 2.6 cm (< 3.3) IVSd: 1.1 cm (0.6 - 1.1) LVIDd: 3.0 cm (3.9 - 5.3) LVPWd: 1.4 cm (0.6 - 1.1) IVSs: 1.5 cm LVIDs: 2.0 cm LVPWs: 1.6 cm Ao Diam: 3.3 cm (2.0 - 3.7) AV Cusp: 1.8 cm (1.5 - 2.6) LA Diam: 2.8 cm (2.7 - 3.8) AR PHT: 700 ms RAP: 5.00 mmHg RVSP: 28.02 mmHg FINDINGS -------- Atrial fibrillation. This was a technically difficult study with suboptimal views. The left ventricular size is normal. Left ventricular wall thickness is normal. Overall left vent ricular systolic function is low-normal with, an EF between 50 - 55 %. The right ventricle is normal in size. The left atrial size is normal. The right atrial size is normal. The aortic valve is trileaflet and appears structurally normal. Trace amount of aortic regurgitatio n. The mitral valve is normal. The mitral valve leaflets are mildly thickened. Mild mitral regurgita tion is present. The tricuspid valve appears structurally normal. Trace tricuspid regurgitation present. Right ruel tricular systolic pressure is normal at < 35 mmHg. There is no pulmonic regurgitation present. The aortic root size is normal. Can not exclude possible Aortic dissection. There is a flap seen near the ascending aorta. IVC Not well visulized. There is no pericardial effusion. CONCLUSIONS -------- 1. Atrial fibrillation. 2. This was a technically difficult study with suboptimal views. 3. The left ventricular size is normal. 4. Left ventricular wall thickness is normal. 5. Overall left ventricular systolic function is low-normal with, an EF between 50 - 55 %. 6. The right ventricle is normal in size. 7. The left atrial size is normal. 8. The right atrial size is normal. 9. The aortic valve is trileaflet and appears structurally normal. 10. Trace amount of aortic regurgitation. 11. The mitral valve is normal. 12. The mitral valve leaflets are mildly thickened. 13. Mild mitral regurgitation is present. 14. The tricuspid valve appears structurally normal. 15. Trace tricuspid regurgitation present. 16. Right ventricular systolic pressure is normal at < 35 mmHg. 17. There is no pulmonic regurgitation present. 18. The aortic root size is normal. 19. Can not exclude possible Aortic dissection. There is a flap seen near the ascending aorta. 20. IVC Not well visulized. 21. There is no pericardial effusion. PICKING TECH: Juliette Jones RDCS
--- NOTE | 2019-06-07 12:58 | XR ---
EXAMINATION TYPE: XR humerus RT DATE OF EXAM: 06/07/2019 CLINICAL HISTORY: Right humeral fracture. Follow-up exam. TECHNIQUE: Two views of the right humerus are obtained. COMPARISON: None. FINDINGS: There is a known comminuted, displaced, proximal diaphyseal right humeral fracture with pre dominant vertical fracture orientation. There remains overlying soft tissue swelling. The previously seen approximately 9 mm of medial distraction has slightly progressed to approximately 12 mm. There i s extent of the fracture line appears more cranial on today's examination extending to the proximal h umeral metaphysis towards the humeral head. There is apex medial angulation on the lateral view. IMPRESSION: Slightly progressed diastases of the known comminuted, closed, proximal diaphyseal right humeral fracture with more cranial extent of the primary fracture line on today's examination into th e proximal metaphysis.
[2019-06-07] MEDS: MORPHINE SULFATE 2 MG/ML SYRINGE IVP PRN (14:36)
--- NOTE | 2019-06-07 14:50 | P.PN ---
Subjective Progress Note Date: 06/07/19 Principal diagnosis: PE Patient was seen and examined. No acute events overnight. Patient reports pleuritic chest pain that is relieved with morphine. Patient reports shortness of breath due to her chest pain. She denies any nausea or vomiting. No fever or chills. Objective - Vital Signs Vital signs: Vital Signs Temp 98.9 F 06/07/19 08:00 Pulse 96 06/07/19 08:00 Resp 16 06/07/19 08:00 BP 132/73 06/07/19 08:00 Pulse Ox 97 06/07/19 08:00 Intake & Output 06/06/19 06/07/19 06/07/19 18:59 06:59 18:59 Intake Total 100 137.435 Balance 100 137.435 Weight 82.1 kg 68 kg Intake: Intake, IV Titration 137.435 Amount Heparin Sod,Pork in 0.45% 137.435 NaCl 25,000 unit In 0.45 % NaCl 1 250ml.bag @ 18 UNITS/KG/HR 14.778 mls/hr IV .[id number] [facility] Rx#: [id number] Oral 100 Other: Voiding Method Diaper Diaper Incontinent Incontinent - Exam General: [non toxic], [no distress], [appears at stated age] Derm: [warm], [dry] Head: [atraumatic], [normocephalic], [symmetric] Eyes: [EOMI], [no lid lag], [anicteric sclera] Mouth: [no lip lesion], [mucus membranes moist] Cardiovascular: [S1S2 reg], [tachycardia], [positive DP pulse bilateral], Lungs: [CTA bilateral], [no rhonchi, no rales] , [no accessory muscle use] Abdominal: [soft], [ nontender to palpation], [no guarding], [no appreciable organomegaly] Ext: [no gross muscle atrophy], [no edema], [no contractures], [right shoulder casted and mobilized with limited range of motion] Neuro: [ CN II-XI grossly intact except facial droop noted on the right side], [0-5 strength in the left upper and lower extremity with sensation intact to touch] Psych: [Alert], [oriented], [appropriate affect] - Labs CBC & Chem 7: 06/07/19 10:13 06/06/19 16:10 Labs: Abnormal Lab Results - Last 24 Hours (Table) 06/06/19 06/06/19 06/06/19 Range/Units 16:10 16:10 21:24 WBC 10.7 H (3.8-10.6) k/uL RBC 3.59 L (3.80-5.40) m/uL Hgb 11.2 L D (11.4-16.0) gm/dL Hct (34.0-46.0) % Neutrophils # 8.6 H (1.3-7.7) k/uL APTT (22.0-30.0) sec D-Dimer 13.51 H (<0.60) mg/L FEU Sodium 135 L (137-145) mmol/L Glucose 140 H (74-99) mg/dL AST 45 H (14-36) U/L Alkaline Phosphatase 219 H (38-126) U/L Creatine Kinase 29 L (30-135) U/L 06/07/19 06/07/19 06/07/19 Range/Units 03:30 05:52 10:13 WBC 11.4 H 11.2 H (3.8-10.6) k/uL RBC 3.27 L 3.54 L (3.80-5.40) m/uL Hgb 10.3 L 11.1 L (11.4-16.0) gm/dL Hct 32.3 L (34.0-46.0) % Neutrophils # (1.3-7.7) k/uL APTT >200.0 H* (22.0-30.0) sec D-Dimer (<0.60) mg/L FEU Sodium (137-145) mmol/L Glucose (74-99) mg/dL AST (14-36) U/L Alkaline Phosphatase (38-126) U/L Creatine Kinase (30-135) U/L Assessment and Plan Assessment: Chest pain related to PE and possible A. fib with RVR rule out ACS Atrial fibrillation with RVR Pulmonary embolus Recent CVA with left-sided paralysis Right-sided femoral fracture Leukocytosis Uterine cancer Her chest pain is pleuritic in nature and likely related to PE. CTA chest confirms PE. Troponins were less than 0.0123 with EKG showing atrial fibrillation with RVR, ACS ruled out. Echocardiogram shows EF 50-55% with normal wall motion. Patient is currently on heparin drip for diagnosis of PE. Treatment for A. fib with IV Cardizem and metoprolol by mouth. Morphine decided as needed for pain. Telemetry monitoring has been ordered. As seen on EKG. Plans to continue heparin drip as per protocol. Caution due to history GI bleed at [facility]. Patient was given Cardizem IV now discontinued. Currently rate controlled on metoprolol by mouth. Cardiology is following. As seen on CTA chest. Plans to continue heparin drip as per protocol. Patient does have some immobilization due to her recent stroke. She also suffered a humeral fracture. Patient is coming from [facility]. Will continue aspirin and Lipitor. Start Dysphagia level I pured diet. Follow PT and OT recommendations. Case management on board for return back to rehab. Humeral x-ray shows progressed diastases of the known commuted closed proximal diaphyseal right humeral fracture. Orthopedic surgery has been consulted. Patient has mild leukocytosis of 11.2 that is likely reactive. She is afebrile and there are no signs of infection. We will continue to monitor her leukocytosis with daily CBCs. Patient will need follow-up with her PCP for history of uterine cancer. [Patient diagnosed with PE. Continued on heparin drip. Cardiology on board for A. fib with RVR. She is pending clinical improvement. Likely DC in 2-3 days.]
[2019-06-07] MEDS: POLYETHYLENE GLYCOL 3350 17 GM POWD.PACK PO SCH (16:41)
[2019-06-07 18:25] LABS: HCT 35.5 % (34.0-46.0); HGB 11.4 gm/dL (11.4-16.0); Hypochromasia Moderate; MCH 32.1 pg (25.0-35.0); MCV 100.3 fL (80.0-100.0); Macrocytosis Slight; Mean Platelet Volume 8.2; Platelet Count 383 k/uL (150-450); RBC 3.54 m/uL (3.80-5.40); WBC 11.5 k/uL (3.8-10.6)
[2019-06-07] MEDS: PANTOPRAZOLE 40 MG TABLET PO SCH (21:23)
[2019-06-07] MEDS: ATORVASTATIN 40 MG TAB PO SCH (21:23)
--- NOTE | 2019-06-08 07:25 | P.CONS ---
History of Present Illness - Reason for Consult Consult date: 06/07/19 History of GI bleed Requesting physician: Samantha Molina - Chief Complaint Chest pain - History of Present Illness 74-year-old female with a medical history significant for hyperlipidemia and uterine cancer which was recently diagnosed, as well as a ischemic CVA on 2019 with residual paralysis who presented from her debilitation facility with complaints of chest pain. Patient currently being treated for a pulmonary embolism as well as atrial fibrillation. The gastroenterology service was consulted due to concerns over anticoagulation therapy in the setting of a prior GI bleed. 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 The patient has had no further signs or symptoms of bleeding since that time. Laboratory evaluation on presentation significant for a WBC 11.4, hemoglobin 10, platelet count 347,000, total bilirubin 0.5, alkaline phosphatase 219, AST 45 and ALT 34. Review of Systems REVIEW OF SYSTEMS: CONSTITUTIONAL: Denies any fevers, chills, weight change or fatigue. CARDIOVASCULAR: Denies any current chest pain but did have chest pain on presentation. No palpitations reported. RESPIRATORY: Denies any shortness of breath, hemoptysis or cough. GENITOURINARY: No dysuria or hematuria. MUSCULOSKELETAL: No weakness reported. SKIN: Denies any new rashes or lesions, jaundice or pallor. PSYCHIATRIC: Denies any depression or anxiety. NEUROLOGY: Denies headache, denies any new focal deficits, but does have residual deficits status post CVA. EARS/NOSE/THROAT: No recent hearing change, congestion, nasal discharge or sore throat. EYES: No pain in eyes, discharge or change in vision. GASTROINTESTINAL: As per HPI. Past Medical History Past Medical History: Hyperlipidemia Additional Past Medical History / Comment(s): stroke (05/2019) left side paralysis History of Any Multi-Drug Resistant Organisms: None Reported Past Surgical History: No Surgical Hx Reported Past Anesthesia/Blood Transfusion Reactions: No Reported Reaction Past Psychological History: No Psychological Hx Reported Smoking Status: Never smoker Past Alcohol Use History: None Reported Past Drug Use History: None Reported - Past Family History Father Family Medical History: Unable to Obtain Medications and Allergies Home Medications Medication Instructions Recorded Confirmed Type Acetaminophen Tab [Tylenol] 650 mg PO Q4H PRN 06/06/19 06/06/19 History Artificial Tears-Hypromellose 1 drops BOTH EYES TID PRN 06/06/19 06/06/19 History [Artificial Tear Drops] Aspirin 81 mg PO DAILY 06/06/19 06/06/19 History Atorvastatin [Lipitor] 40 mg PO HS 06/06/19 06/06/19 History Benzocaine/Menthol Lozeng [Cepacol 1 lozenge MUCOUS MEM Q4HR PRN 06/06/19 06/06/19 History lozenge] Heparin Sodium,Porcine [Heparin 5,000 unit SQ Q8H 06/06/19 06/06/19 History Sodium] Metoprolol Tartrate [Lopressor] 25 mg PO BID 06/06/19 06/06/19 History Omeprazole 20 mg PO HS 06/06/19 06/06/19 History Sodium Chloride [[place]] 1 spray EA NOSTRIL DAILY PRN 06/06/19 06/06/19 History Allergies Allergy/AdvReac Type Severity Reaction Status Date / Time Penicillins Allergy Rash/Hives Verified 06/06/19 17:52 Physical Exam Vitals: Vital Signs Temp Pulse Pulse Resp BP BP Pulse Ox 06/07/19 12:00 98.1 F 110 H 16 106/75 97 06/07/19 08:00 98.9 F 96 14 132/73 97 06/07/19 04:23 98.0 F 89 16 122/78 99 06/06/19 23:28 94 16 118/66 96 06/06/19 21:42 98.0 F 89 18 93/53 95 06/06/19 21:17 98.0 F 85 16 136/64 96 06/06/19 20:06 110 H 18 125/74 95 06/06/19 17:00 95 17 119/92 99 06/06/19 16:30 90 17 119/92 97 06/06/19 16:08 113 H 06/06/19 16:00 128 H 17 124/94 97 06/06/19 15:45 112 H 17 97 06/06/19 15:41 98.0 F 117 H 18 124/94 96 Intake and Output 06/07/19 06/07/19 06/07/19 06:59 14:59 22:59 Intake Total 100 537.435 Balance 100 537.435 Intake: Intake, IV Titration 137.435 Amount Heparin Sod,Pork in 0.45% 137.435 NaCl 25,000 unit In 0.45 % NaCl 1 250ml.bag @ 18 UNITS/KG/HR 14.778 mls/hr IV .[id number] [facility] Rx#: [id number] Oral 100 400 Other: Voiding Method Diaper Diaper Incontinent Incontinent Weight 68 kg On physical examination, patient appears comfortable in no apparent distress. HEAD: Normocephalic, atraumatic. EYES: No scleral icterus. No conjunctival injection. Right-sided gaze. MOUTH: No lesions, tongue midline. NECK: Trachea midline, no gross abnormalities. CHEST: Clear to auscultation with no wheezing or rhonchi appreciated. HEART: S1-S2 appreciated. ABDOMEN: Soft, obese. Bowel sounds are positive. No organomegaly. No guarding or rigidity. EXTREMITIES: No pedal edema. SKIN: No rashes, no jaundice. NEUROLOGIC: Alert and oriented x3. Residual left-sided weakness after CVA. Results CBC & Chem 7: 06/07/19 16:09 06/06/19 16:10 Labs: Abnormal Lab Results - Last 24 Hours (Table) 06/06/19 06/06/19 06/06/19 Range/Units 16:10 16:10 21:24 WBC 10.7 H (3.8-10.6) k/uL RBC 3.59 L (3.80-5.40) m/uL Hgb 11.2 L D (11.4-16.0) gm/dL Hct (34.0-46.0) % Neutrophils # 8.6 H (1.3-7.7) k/uL APTT (22.0-30.0) sec D-Dimer 13.51 H (<0.60) mg/L FEU Sodium 135 L (137-145) mmol/L Glucose 140 H (74-99) mg/dL AST 45 H (14-36) U/L Alkaline Phosphatase 219 H (38-126) U/L Creatine Kinase 29 L (30-135) U/L 06/07/19 06/07/19 06/07/19 Range/Units 03:30 05:52 10:13 WBC 11.4 H 11.2 H (3.8-10.6) k/uL RBC 3.27 L 3.54 L (3.80-5.40) m/uL Hgb 10.3 L 11.1 L (11.4-16.0) gm/dL Hct 32.3 L (34.0-46.0) % Neutrophils # (1.3-7.7) k/uL APTT >200.0 H* (22.0-30.0) sec D-Dimer (<0.60) mg/L FEU Sodium (137-145) mmol/L Glucose (74-99) mg/dL AST (14-36) U/L Alkaline Phosphatase (38-126) U/L Creatine Kinase (30-135) U/L CT scan - chest: report reviewed (Multiple bilateral lower lobe emboli on CTA) Assessment and Plan (1) History of GI bleed Narrative/Plan: 74-year-old female with multiple medical comorbidities including recent CVA and current admission with treatment for multiple pulmonary thrombi/PE who initially presented for chest pain. Patient was recently hospitalized for treatment of a CVA for which she has residual left-sided weakness. At that time there were concerns for GI bleed and EGD was performed on 05/22/2019 with findings of NG trauma in the stomach as well as a Olimpia-Wyman tear which was clipped. Patient has had no further signs or symptoms of GI bleeding. Hemoglobin has remained stable. Current Visit: Yes Status: Acute Code(s): Z87.19 - PERSONAL HISTORY OF OTHER DISEASES OF THE DIGESTIVE SYSTEM SNOMED Code(s): 479246527 Plan: Supportive care Okay for diet Continue to monitor hemoglobin and hematocrit and transfuse as needed Prior endoscopic report reviewed No plans for endoscopy at this time Protonix increased to twice daily If The patient has precipitous fall in hemoglobin or signs or symptoms of GI bleeding occur we'll reevaluate at that time otherwise okay for treatment with anticoagulation therapy Thank you for allowing us to participate in the care of the patient
[2019-06-08] MEDS: PANTOPRAZOLE 40 MG TABLET PO SCH ×2 (07:58→18:13)
[2019-06-08] MEDS: METOPROLOL TARTRATE 25 MG TAB PO SCH (07:58)
[2019-06-08] MEDS: ASPIRIN 81 MG PO SCH (07:58)
[2019-06-08] MEDS: POLYETHYLENE GLYCOL 3350 17 GM POWD.PACK PO SCH (07:59)
[2019-06-08 08:17] LABS: Basophils % (A) 0 %; Eosinophils # (A) 0.2 k/uL (0-0.7); Eosinophils % (A) 2 %; HCT 31.7 % (34.0-46.0); HGB 10.2 gm/dL (11.4-16.0); Hypochromasia Slight; Lymphocytes # (A) 1.6 k/uL (1.0-4.8); Lymphocytes % (A) 18 %; MCH 31.7 pg (25.0-35.0); MCHC 32.1 g/dL (31.0-37.0); MCV 98.7 fL (80.0-100.0); Mean Platelet Volume 7.7; Monocytes # (A) 0.6 k/uL (0-1.0); Monocytes % (A) 7 %; Neutrophils # (A) 6.4 k/uL (1.3-7.7); Neutrophils % (A) 71 %; Platelet Count 360 k/uL (150-450); RBC 3.21 m/uL (3.80-5.40); RDW 13.9 % (11.5-15.5)
--- NOTE | 2019-06-08 09:07 | P.PN ---
Subjective Progress Note Date: 06/08/19 Principal diagnosis: Right humeral fracture. Multiple medical comorbidities. This is a 74-year-old female who we are following regarding her right humerus fracture. Repeat x-rays were taken yesterday which revealed minimal change in position of the midshaft to proximal third humerus fracture. She has no new complaints or concerns today. Vital signs are stable. Objective - Vital Signs Vital signs: Vital Signs Temp 97.9 F 06/08/19 08:00 Pulse 118 H 06/08/19 08:00 Resp 18 06/08/19 08:00 BP 122/77 06/08/19 08:00 Pulse Ox 95 06/08/19 08:00 Intake & Output 06/07/19 06/08/19 06/08/19 18:59 06:59 18:59 Intake Total 626.281 67.24 365 Output Total 650 700 Balance -23.719 -632.76 365 Weight 67.2 kg Intake: Intake, IV Titration 226.281 67.24 Amount Heparin Sod,Pork in 0.45% 226.281 67.24 NaCl 25,000 unit In 0.45 % NaCl 1 250ml.bag @ 18 UNITS/KG/HR 14.778 mls/hr IV .[id number] [facility] Rx#: [id number] Oral 400 365 Output: Urine 650 700 Other: Voiding Method Diaper Diaper Incontinent Incontinent - Exam This is a pleasant 74-year-old female in no acute distress. She is alert with some confusion this morning. Exam of the right upper extremity reveals that her brace is in place. She is lying in bed list into the right side with pressure on the right elbow. She has full finger motion without difficulty or pain. Neurovascular status to the upper extremity is intact. - Labs CBC & Chem 7: 06/08/19 06:29 06/06/19 16:10 Labs: Abnormal Lab Results - Last 24 Hours (Table) 06/07/19 06/07/19 06/07/19 Range/Units 10:13 16:09 16:09 WBC 11.2 H 11.5 H (3.8-10.6) k/uL RBC 3.54 L 3.54 L (3.80-5.40) m/uL Hgb 11.1 L (11.4-16.0) gm/dL Hct (34.0-46.0) % MCV 100.3 H (80.0-100.0) fL APTT 74.8 H (22.0-30.0) sec 06/07/19 06/08/19 06/08/19 Range/Units 23:58 06:29 06:29 WBC (3.8-10.6) k/uL RBC 3.21 L (3.80-5.40) m/uL Hgb 10.2 L (11.4-16.0) gm/dL Hct 31.7 L (34.0-46.0) % MCV (80.0-100.0) fL APTT 68.9 H 46.7 H (22.0-30.0) sec Microbiology - Last 24 Hours (Table) 06/06/19 16:10 Blood Culture - Preliminary Blood No Growth after 24 hours Assessment and Plan (1) Chest pain Current Visit: Yes Status: Acute Code(s): R07.9 - CHEST PAIN, UNSPECIFIED SNOMED Code(s): 78861271 (2) Rapid atrial fibrillation Current Visit: Yes Status: Acute Code(s): I48.91 - UNSPECIFIED ATRIAL FIBRILLATION SNOMED Code(s): 142724585 (3) Right humeral fracture Current Visit: Yes Status: Acute Code(s): S42.301A - UNSP FRACTURE OF SHAFT OF HUMERUS, RIGHT ARM, INIT SNOMED Code(s): 77355274 (4) History of GI bleed Current Visit: Yes Status: Acute Code(s): Z87.19 - PERSONAL HISTORY OF OTHER DISEASES OF THE DIGESTIVE SYSTEM SNOMED Code(s): 751371914 Plan: The clinical findings are discussed with the patient and her . I placed some padding around the brace to prevent skin breakdown. I advised her to remain upright and not put pressure on the right arm in bed. She'll be most comfortable sleeping at a 45 angle with the arm dangling. She is to continue the current brace. She is to follow-up for x-rays in [address] Ordonez.
--- NOTE | 2019-06-08 11:27 | PN ---
PROGRESS NOTE Mrs. Parada is a 74-year-old female who presented with symptoms of dyspnea and was found to have evidence of pulmonary embolism. She has atrial fibrillation and recent cerebrovascular accident. She was not anticoagulated at that time because of GI bleeding and Olimpia-Wyman tear. She had no further GI bleeding as she was seen by the GI Service yesterday who felt that she is stable to reinitiate anticoagulation. She is feeling reasonably well this morning. She denies any symptoms of chest pain. Her breathing is stable. She denies any dizziness or palpitation. She continued to be in atrial fibrillation with episode of rapid ventricular response. She had an echocardiogram revealed ejection fraction of 50% to 55% There was a question of an aortic dissection. I discussed her case with the radiologist yesterday who reviewed her CAT scan and that showed artifact, but did not feel that there is a suggestion of a dissection. She continues to be at this time on IV heparin, aspirin 81 mg daily, Lipitor 40 mg daily, metoprolol tartrate 25 mg 3 times a day. PHYSICAL EXAMINATION: Blood pressure 122/70 with the heart rate in the low 100s. LUNGS: Clear. HEART: Irregular, irregular. S1, S2. No S3. No rub. ABDOMEN: Soft, nontender. EXTREMITIES: No edema. LAB DATA: Lab data revealed hemoglobin 10.2. IMPRESSION: 1. Pulmonary embolism. 2. Atrial fibrillation persistent with episode of rapid ventricular response. 3. Recent cerebrovascular accident. 4. Episode of gastrointestinal bleeding, stable. 5. Hypertension. 6. Hyperlipidemia. RECOMMENDATION: I will stop her aspirin. I will initiate treatment with Xarelto, stop the heparin. I have discussed with patient the finding with the family and they are in full understanding and agreement. MMODL / IJN: [id number] /
[2019-06-08] MEDS: ACETAMINOPHEN TAB 325 MG TAB PO PRN (11:52)
[2019-06-08] MEDS: RIVAROXABAN 15 MG TAB PO SCH ×2 (11:53→18:12)
[2019-06-08] MEDS: HEPARIN SOD,PORK IN 0.45% NACL 25,000 UNIT in 0.45% NACL 1 250ML.BAG IV SCH (11:53)
--- NOTE | 2019-06-08 13:15 | P.PN ---
Subjective Progress Note Date: 06/08/19 Principal diagnosis: PE Patient was seen and examined. No acute events overnight. Patient states that her chest pain has resolved. She denies any nausea or vomiting. No fever or chills. Objective - Vital Signs Vital signs: Vital Signs Temp 97.9 F 06/08/19 08:00 Pulse 118 H 06/08/19 08:00 Resp 18 06/08/19 08:00 BP 122/77 06/08/19 08:00 Pulse Ox 95 06/08/19 08:00 Intake & Output 06/07/19 06/08/19 06/08/19 18:59 06:59 18:59 Intake Total 626.281 67.24 365 Output Total 650 700 Balance -23.719 -632.76 365 Weight 67.2 kg Intake: Intake, IV Titration 226.281 67.24 Amount Heparin Sod,Pork in 0.45% 226.281 67.24 NaCl 25,000 unit In 0.45 % NaCl 1 250ml.bag @ 18 UNITS/KG/HR 14.778 mls/hr IV .[id number] [facility] Rx#: [id number] Oral 400 365 Output: Urine 650 700 Other: Voiding Method Diaper Diaper Incontinent Incontinent - Exam General: [non toxic], [no distress], [appears at stated age] Derm: [warm], [dry] Head: [atraumatic], [normocephalic], [symmetric] Eyes: [EOMI], [no lid lag], [anicteric sclera] Mouth: [no lip lesion], [mucus membranes moist] Cardiovascular: [S1S2 reg], [tachycardia], [positive DP pulse bilateral], Lungs: [CTA bilateral], [no rhonchi, no rales] , [no accessory muscle use] Abdominal: [soft], [ nontender to palpation], [no guarding], [no appreciable organomegaly] Ext: [no gross muscle atrophy], [no edema], [no contractures], [right shoulder casted and mobilized with limited range of motion] Neuro: [ CN II-XI grossly intact except facial droop noted on the right side], [0-5 strength in the left upper and lower extremity with sensation intact to touch] Psych: [Alert], [oriented], [appropriate affect] - Labs CBC & Chem 7: 06/08/19 06:29 06/06/19 16:10 Labs: Abnormal Lab Results - Last 24 Hours (Table) 06/07/19 06/07/19 06/07/19 Range/Units 16:09 16:09 23:58 WBC 11.5 H (3.8-10.6) k/uL RBC 3.54 L (3.80-5.40) m/uL Hgb (11.4-16.0) gm/dL Hct (34.0-46.0) % MCV 100.3 H (80.0-100.0) fL APTT 74.8 H 68.9 H (22.0-30.0) sec 06/08/19 06/08/19 Range/Units 06:29 06:29 WBC (3.8-10.6) k/uL RBC 3.21 L (3.80-5.40) m/uL Hgb 10.2 L (11.4-16.0) gm/dL Hct 31.7 L (34.0-46.0) % MCV (80.0-100.0) fL APTT 46.7 H (22.0-30.0) sec Microbiology - Last 24 Hours (Table) 06/06/19 16:10 Blood Culture - Preliminary Blood No Growth after 24 hours Assessment and Plan Assessment: Chest pain related to PE and possible A. fib with RVR rule out ACS Atrial fibrillation with RVR Pulmonary embolus Recent CVA with left-sided paralysis Right-sided femoral fracture Uterine cancer Her chest pain is pleuritic in nature and likely related to PE. CTA chest confirms PE. Troponins were less than 0.0123 with EKG showing atrial fibrillation with RVR, ACS ruled out. Echocardiogram shows EF 50-55% with normal wall motion. Patient is currently on Xarelto for diagnosis of PE. Treatment for A. fib with IV Cardizem and metoprolol by mouth. Morphine decided as needed for pain. Telemetry monitoring has been ordered. As seen on EKG. Replace heparin drip with Xarelto. Caution due to history GI bleed at [facility]. Patient was given Cardizem IV now discontinued. Currently rate controlled on metoprolol by mouth. Cardiology is following. As seen on CTA chest. Management as above. Patient does have some immobilization due to her recent stroke. She also suffered a humeral fracture. Patient is coming from [facility]. Will continue aspirin and Lipitor. Start Dysphagia level I pured diet. Follow PT and OT recommendations. Case management on board for return back to rehab. Humeral x-ray shows progressed diastases of the known commuted closed proximal diaphyseal right humeral fracture. Orthopedic surgery has been consulted. Patient will need follow-up with her PCP for history of uterine cancer. [Patient diagnosed with PE. Transitioned to Xarelto. Continues to be tachycardic, Cardiology on board for A. fib with RVR. She is pending clinical improvement. Likely DC in 1-2 days.]
[2019-06-08] MEDS: MORPHINE SULFATE 2 MG/ML SYRINGE IVP PRN ×2 (18:15→23:00)
[2019-06-08] MEDS: ATORVASTATIN 40 MG TAB PO SCH (20:03)
[2019-06-08] MEDS: METOPROLOL TARTRATE 50 MG TAB PO SCH (20:03)
[2019-06-09] MEDS: MORPHINE SULFATE 2 MG/ML SYRINGE IVP PRN ×3 (04:23→12:44)
[2019-06-09 06:17] LABS: Basophils % (A) 1 %; Eosinophils # (A) 0.2 k/uL (0-0.7); Eosinophils % (A) 3 %; HCT 35.7 % (34.0-46.0); HGB 11.3 gm/dL (11.4-16.0); Hypochromasia Slight; Lymphocytes # (A) 1.5 k/uL (1.0-4.8); Lymphocytes % (A) 21 %; MCH 30.9 pg (25.0-35.0); MCHC 31.5 g/dL (31.0-37.0); MCV 97.9 fL (80.0-100.0); Mean Platelet Volume 7.2; Monocytes # (A) 0.4 k/uL (0-1.0); Monocytes % (A) 6 %; Neutrophils % (A) 68 %; Platelet Count 411 k/uL (150-450); RBC 3.65 m/uL (3.80-5.40); RDW 13.7 % (11.5-15.5); WBC 7.4 k/uL (3.8-10.6)
[2019-06-09] MEDS: RIVAROXABAN 15 MG TAB PO SCH (06:35)
[2019-06-09] MEDS: PANTOPRAZOLE 40 MG TABLET PO SCH (06:35)
[2019-06-09 06:37] LABS: African American GFR (CKD) >90 (>60 ml/min/1.73 sqM); Anion Gap 5 mmol/L; Blood Urea Nitrogen 10 mg/dL (7-17); Calcium 9.1 mg/dL (8.4-10.2); Carbon Dioxide 31 mmol/L (22-30); Chloride 99 mmol/L (98-107); Glucose 94 mg/dL (74-99); Non-African American GFR(CKD) >90 (>60 ml/min/1.73 sqM); Potassium 3.8 mmol/L (3.5-5.1); Sodium 135 mmol/L (137-145)
[2019-06-09] MEDS: POLYETHYLENE GLYCOL 3350 17 GM POWD.PACK PO SCH (08:19)
[2019-06-09] MEDS: METOPROLOL TARTRATE 50 MG TAB PO SCH (08:19)
[2019-06-09] MEDS: ACETAMINOPHEN TAB 325 MG TAB PO PRN (10:46)
--- NOTE | 2019-06-09 10:49 | P.DS ---
Providers Date of admission: 06/06/19 17:36 Expected date of discharge: 06/09/19 Attending physician: Samantha Molina, DO Consults: 06/06/19 17:36 Consult Physician Routine Consulting Provider: Janes Page Consult Reason/Comments: Right humeral fracture Do you want consulting provider notified?: Yes Consult Physician Urgent Consulting Provider: Teto Ramirez Consult Reason/Comments: Rapid atrial fibrillation, chest pain Do you want consulting provider notified?: Yes Primary care physician: Steve Rodrigez [facility] Course: Patient is a 74-year-old female with a PMH of hyperlipidemia and Uterine ca (recently diagnosed) was [facility] discomfort. The patient recently suffered a right humeral fracture on 05/08/19, for which she was following with Dr. Page. 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 As for the patient's at the bedside, she was likely diagnosed with A. fib as the culprit of her stroke. The notes that the grass farmer and the neurologist at [facility] had decided that the patient should not be started on anticoagulation. He isn't sure regarding the procedures that the patient underwent at [facility]. The patient was subsequently discharged to rehab facility 3 days ago, where she was participating and having some improvement. Earlier today however, at around noon, the patient suddenly developed a substernal sharp, 10 out of 10 chest discomfort, nonradiating, worsened with deep breathing, with no clear alleviating factors. The patient noted that the pain is somewhat intermittent, and noted that it was a 4 out of 10 at the time of interview. She reports that she's never had such pain in the past and had never seen a grass farmer prior to her admission to [facility]. She also denied associated shortness of breath, nausea, vomiting, palpitations, diaphoresis, or dizziness. She also denied leg pain or swelling. The patient further denied cough, fever, chills, abdominal pain, or diarrhea. The patient underwent an extensive evaluation in the emergency room with EKG showing A. fib with RVR at 117 beats per minute with occasional PVCs. Chest x-ray revealed left basilar atelectasis with small bilateral pleural effusions. Laboratory evaluation revealed a troponin less than 0.012, BNP 711, WBC count and 0.7, hemoglobin 11.2, sodium 135, potassium 4.1, alk phos 219, CK 29, BUN 15, and creatinine 0.60. The patient was started on Cardizem infusion and is being admitted for further management. Her chest pain is pleuritic in nature and likely related to PE. CTA chest confirmed PE. Troponins were less than 0.0123 with EKG showing atrial fibrillation with RVR, ACS was ruled out. Echocardiogram shows EF 50-55% with normal wall motion. She was initially started on a heparin drip which was discontinued for Xarelto. Cardiology was consulted for atrial fibrillation with RVR and transitioned the patient from Cardizem IV to metoprolol by mouth. She was rate controlled during her hospitalization. Orthopedic surgery was consulted for recent humeral fracture. X-ray showed progressed diastases of the known commuted closed proximal diaphyseal right humeral fracture. Orthopedic surgery recommended conservative management. Patient was seen and examined today along with her at bedside. Patient with no complaints. She denies any chest pain, shortness breath or palpitations. No nausea or vomiting. No fever or chills. General: [non toxic], [no distress], [appears at stated age] Derm: [warm], [dry] Head: [atraumatic], [normocephalic], [symmetric] Eyes: [EOMI], [no lid lag], [anicteric sclera] Mouth: [no lip lesion], [mucus membranes moist] Cardiovascular: [S1S2 irreg], [no murmur], [positive DP pulse bilateral], Lungs: [CTA bilateral], [no rhonchi, no rales] , [no accessory muscle use] Abdominal: [soft], [ nontender to palpation], [no guarding], [no appreciable organomegaly] Ext: [no gross muscle atrophy], [no edema], [no contractures], [right shoulder casted and mobilized with limited range of motion] Neuro: [ CN II-XI grossly intact except facial droop noted on the right side], [0-5 strength in the left upper and lower extremity with sensation intact to touch] Psych: [Alert], [oriented], [appropriate affect] Chest pain related to PE and possible A. fib with RVR rule out ACS Atrial fibrillation with RVR Pulmonary embolus Recent CVA with left-sided paralysis Right-sided femoral fracture Uterine cancer Patient is currently rate controlled on metoprolol 50 mg by mouth twice a day. She has been started on Xarelto for A. fib with RVR along with pulmonary embolus. She does have a history of GI bleed but nothing has been observed during her hospitalization. Her pain is well-controlled. Plan is to discharge the patient back to [facility] today pending cardiology clearance. She is to follow-up with cardiology within 1-3 days of discharge. Patient and verbalized understanding of the plan. This complex discharge took about 35 minutes to complete. Pertinent Studies: Chest x-ray, chest CTA, echocardiogram, humerus x-ray Patient Condition at Discharge: Stable Plan - Discharge Summary Discharge Rx Participant: Yes New Discharge Prescriptions: New Metoprolol Tartrate [Lopressor] 50 mg PO BID #0 tab Rivaroxaban [Xarelto] 15 mg PO BID-W/MEALS tab HYDROcodone/APAP 5-325MG [[place] 5-325] 1 tab PO Q4HR PRN 3 Days #18 tab PRN Reason: Pain Continue Benzocaine/Menthol Lozeng [Cepacol lozenge] 1 lozenge MUCOUS MEM Q4HR PRN PRN Reason: Sore Throat Artificial Tears-Hypromellose [Artificial Tear Drops] 1 drops BOTH EYES TID PRN PRN Reason: Dry Eye(S) Acetaminophen Tab [Tylenol] 650 mg PO Q4H PRN PRN Reason: Fever Omeprazole 20 mg PO HS Atorvastatin [Lipitor] 40 mg PO HS Sodium Chloride [[place]] 1 spray EA NOSTRIL DAILY PRN PRN Reason: dry nares Discontinued Metoprolol Tartrate [Lopressor] 25 mg PO BID Heparin Sodium,Porcine [Heparin Sodium] 5,000 unit SQ Q8H Aspirin 81 mg PO DAILY Discharge Medication List Acetaminophen Tab [Tylenol] 650 mg PO Q4H PRN 06/06/19 [History] Artificial Tears-Hypromellose [Artificial Tear Drops] 1 drops BOTH EYES TID PRN 06/06/19 [History] Atorvastatin [Lipitor] 40 mg PO HS 06/06/19 [History] Benzocaine/Menthol Lozeng [Cepacol lozenge] 1 lozenge MUCOUS MEM Q4HR PRN 06/05 [History] Omeprazole 20 mg PO HS 06/06/19 [History] Sodium Chloride [[place]] 1 spray EA NOSTRIL DAILY PRN 06/06/19 [History] HYDROcodone/APAP 5-325MG [[place] 5-325] 1 tab PO Q4HR PRN 3 Days #18 tab 06/09/19 [Rx] Metoprolol Tartrate [Lopressor] 50 mg PO BID #0 tab 06/09/19 [Rx] Rivaroxaban [Xarelto] 15 mg PO BID-W/MEALS tab 06/09/19 [Rx] Follow up Appointment(s)/Referral(s): Steve Rodrigez MD [Primary Care Provider] - 1-2 days [facility], [NON-STAFF] - 1 Week Yared Ordonez MD [STAFF PHYSICIAN] - 2 Weeks Teto Ramirez MD [STAFF PHYSICIAN] - 1 Week Activity/Diet/Wound Care/Special Instructions: Continue current clamshell brace right upper arm. Keep the brace padded with ABDs. Recommend that the patient be at least 45 elevated with the right arm dangling. No weightbearing to the right upper extremity. Follow up for repeat x-ray in [address] Ordonez. Follow-up PCP within 3 days of discharge. Follow-up with cardiology within 1 week of discharge. Patient will need to take Xarelto 15 mg by mouth twice a day for the first 21 days followed by Xarelto 20 mg by mouth daily after that. Discharge Disposition: TRANSFER TO SNF/ECF
--- NOTE | 2019-06-09 12:00 | PN ---
PROGRESS NOTE Mrs. Parada is a 74-year-old female with history of atrial fibrillation, cerebrovascular accident, history of pulmonary embolism. She was started on oral anticoagulation yesterday. She had no episode of bleeding. She is feeling well. Her breathing is stable. No dizziness. No palpitation. No nausea. She continues to be on Xarelto 50 mg twice a day, Lipitor 40 mg daily, metoprolol 50 mg twice a day. PHYSICAL EXAMINATION: Blood pressure 134/70 with a heart rate in the 80s. LUNGS: Clear. Heart irregularly irregular S1, S2. No S3. No rub. ABDOMEN: Soft and nontender. EXTREMITIES: No edema. LAB DATA: BUN and creatinine of 7 and 0.53. Hemoglobin of 11.3. IMPRESSION: 1. Pulmonary embolism. 2. Atrial fibrillation with controlled ventricular response. 3. Recent cerebrovascular accident. RECOMMENDATIONS: We will continue on the anticoagulation. She should be able to be discharged home today and follow as an outpatient with Dr. Leggett next week. MMODL / IJN: [id number] /
[2019-06-09 12:36] VITALS: BP 155/86; PULSE 99; RESP 16; TEMP 97.6
== END 2019-06-09 14:10 | DRG 308 ==
LOC: EC 15:37 → 3SCARD 17:36
PROVIDERS: ADMIT Internal Medicine; ATTEND Internal Medicine
DX: I48.19 Other persistent atrial fibrillation (principal); I26.99 Other pulmonary embolism without acute cor pulmonale; S42.351A Displaced comminuted fracture of shaft of humerus, right arm, initial encounter for closed fracture; I69.354 Hemiplegia and hemiparesis following cerebral infarction affecting left non-dominant side; J90 Pleural effusion, not elsewhere classified; J98.11 Atelectasis; C55 Malignant neoplasm of uterus, part unspecified; I10 Essential (primary) hypertension; K21.9 Gastro-esophageal reflux disease without esophagitis; E78.5 Hyperlipidemia, unspecified; D72.829 Elevated white blood cell count, unspecified; R74.8 Abnormal levels of other serum enzymes; R32 Unspecified urinary incontinence; R13.10 Dysphagia, unspecified; Z79.82 Long term (current) use of aspirin; Z79.899 Other long term (current) drug therapy; Z87.19 Personal history of other diseases of the digestive system; Z98.890 Other specified postprocedural states; Z88.0 Allergy status to penicillin
CPT/HCPCS: 36415; 71046; 71275; 80048; 80053; 80061; 82550; 83690; 83735; 83880; 84484; 85025; 85027; 85379; 85610; 85730; 87040; 93005; 93306; 99285

== ENCOUNTER 2019-07-06 16:26 | Emergency (ER) | payer MEDICARE, BC ==
[2019-07-06 16:39] VITALS: RESP 18; TEMP 97.9
[2019-07-06] MEDS ORDERED: diphenhydrAMINE 25 MG CAP PO STA (16:39)
--- NOTE | 2019-07-06 16:43 | ED ---
Fall HPI - General Chief Complaint: Fall Stated Complaint: fall Time Seen by Provider: 07/06/19 16:29 Source: patient Mode of arrival: ambulatory - History of Present Illness Initial Comments: Patient is a 74-year-old female, with history of A. fib on his alto, presenting to the emergency department from [facility] via EMS for a fall out of her wheelchair. EMS states that patient went to lean forward slightly to scratch her back when she fell forward out of the wheelchair. She hit the left side of her face. She does have history of stroke with left-sided paralysis earlier this year. She denies any pain anywhere. She does have a "goose egg growth" on the right side of her forehead that has been there for years. She does have a mild abrasion to the left side of her forehead from today's fall. She denies headache, neck pain, dizziness, abdominal pain. She denies any pain in her extremities. Of note, patient is complaining of itchiness on her torso, head and neck. She states she is highly ALLERGIC to most laundry detergents. She has no other complaints at this time. Upon arrival to the ER, patient's pulse is 122, rest of vitals are normal. - Related Data Home Medications Medication Instructions Recorded Confirmed Acetaminophen Tab [Tylenol] 650 mg PO Q4H PRN 06/06/19 06/06/19 Artificial Tears-Hypromellose 1 drops BOTH EYES TID PRN 06/06/19 06/06/19 [Artificial Tear Drops] Atorvastatin [Lipitor] 40 mg PO HS 06/06/19 06/06/19 Benzocaine/Menthol Lozeng [Cepacol 1 lozenge MUCOUS MEM Q4HR PRN 06/06/19 06/06/19 lozenge] Omeprazole 20 mg PO HS 06/06/19 06/06/19 Sodium Chloride [[place]] 1 spray EA NOSTRIL DAILY PRN 06/06/19 06/06/19 Previous Rx's Medication Instructions Recorded HYDROcodone/APAP 5-325MG [[place] 1 tab PO Q4HR PRN 3 Days #18 tab 06/09/19 5-325] Metoprolol Tartrate [Lopressor] 50 mg PO BID #0 tab 06/09/19 Rivaroxaban [Xarelto] 15 mg PO BID-W/MEALS tab 06/09/19 Allergies Allergy/AdvReac Type Severity Reaction Status Date / Time Penicillins Allergy Rash/Hives Verified 06/06/19 17:52 Review of Systems ROS Statement: Those systems with pertinent positive or pertinent negative responses have been documented in the HPI. ROS Other: All systems not noted in ROS Statement are negative. Past Medical History Past Medical History: Hyperlipidemia Additional Past Medical History / Comment(s): stroke (05/2019) left side paralysis History of Any Multi-Drug Resistant Organisms: None Reported Past Surgical History: No Surgical Hx Reported Past Anesthesia/Blood Transfusion Reactions: No Reported Reaction Past Psychological History: No Psychological Hx Reported Smoking Status: Never smoker Past Alcohol Use History: None Reported Past Drug Use History: None Reported - Past Family History Father Family Medical History: Unable to Obtain General Exam - General Exam Comments Initial Comments: GENERAL: Well-appearing, well-nourished and in no acute distress. HEAD: Atraumatic, normocephalic. Mild abrasion noted to left eyebrow area, with mild swelling. EYES: Pupils equal round and reactive to light, extraocular movements intact, sclera anicteric, conjunctiva are normal. ENT: TMs normal, nares patent, oropharynx clear without exudates. Moist mucous membranes. NECK: Normal range of motion, supple without lymphadenopathy or JVD. No midline tenderness. LUNGS: Breath sounds clear to auscultation bilaterally and equal. No wheezes rales or rhonchi. HEART: Regular rate and rhythm without murmurs, rubs or gallops. ABDOMEN: Soft, nontender, normoactive bowel sounds. No guarding, no rebound. No masses appreciated. : Deferred EXTREMITIES: History of left-sided paralysis secondary to stroke. There is no swelling or deformities of the left upper or lower extremity. She is neurovascular intact. Patient is wearing a brace on the right upper extremity secondary to previous humeral fracture. No pitting or edema. No clubbing or cyanosis. NEUROLOGICAL: Cranial nerves II through XII grossly intact. Normal speech. PSYCH: Normal mood, normal affect. SKIN: Warm, Dry, normal turgor, no rashes or lesions noted. Limitations: no limitations Course Vital Signs 07/06/19 07/06/19 07/06/19 16:30 19:36 20:46 Temperature 97.9 F Pulse Rate 122 H 74 72 Respiratory 18 18 18 Rate Blood Pressure 127/107 144/105 134/99 O2 Sat by Pulse 97 97 97 Oximetry Medical Decision Making - Medical Decision Making Patient is 74-year-old female here after falling forward out of her wheelchair. She is currently at [facility] secondary to a right humeral fracture. Patient has a mild abrasion to the left eyebrow area. She is on Xarelto secondary to A. fib. Was given a Benadryl secondary to itching that started prior to arrival. CT of the head and neck shows no acute abnormalities. Chest x-ray is normal. Patient will be discharged back to [facility]. Vital signs are stable. Return parameters were discussed with the patient she verbalized understanding. Case discussed with Dr. Huitron. Disposition Clinical Impression: Fall, Abrasion of forehead Disposition: HOME SELF-CARE Condition: Stable Instructions (If sedation given, give patient instructions): Fall Prevention for Older Adults (ED) Additional Instructions: Please return to the Emergency Department if symptoms worsen or any other concerns. May use ice to the forehead for swelling. Is patient prescribed a controlled substance at d/c from ED?: No Referrals: Steve Rodrigez MD [Primary Care Provider] - 1-2 days
--- NOTE | 2019-07-06 17:57 | CT ---
EXAMINATION TYPE: CT brain tamie wo con DATE OF EXAM: 07/06/2019 COMPARISON: 05/20/2019 HISTORY: 74-year-old female fall, weakness, confusion CT DLP: 1454.9 mGycm Automated exposure control for dose reduction was used. Technique: Examination of the head was done in axial plane without intravenous contrast. Coronal and sagittal reconstructions performed. CT of the cervical spine was obtained in axial plane without intravenous injection of contrast mater ial. Coronal and sagittal reformatted images were obtained from the axial views for evaluation of f ractures, spinal alignment and canal. FINDINGS: Head: There is no evidence of acute intracranial hemorrhage, acute ischemic changes, mass, mass-effect, or extra-axial fluid collection. There is no effacement of cerebral sulci or basal subarachnoid cister ns. There is no hydrocephalus. There is no midline shift. Harrington-white matter distinction is preserv ed. Interval development of extensive right MCA territory encephalomalacia. Mild to moderate bifrontal at rophy. No acute intracranial hemorrhage, acute ischemic change, mass, mass effect, midline shift, or extra-a xial fluid collection. No hydrocephalus. Effacement of cerebral sulci or basal subarachnoid cisterns. Moderate patchy white matter hypodensities are both sides compatible chronic small vessel ischemic di sease. Left frontal and left supraorbital soft tissue contusions. No underlying calvarial fracture. Visualiz ed paranasal sinuses and mastoid air cells appear clear. Cervical spine: No craniocervical junction anomaly, predental space widening, or prevertebral soft tissue swelling. D egenerative changes of the C1 dens articulation. Moderate to advanced disc/endplate degenerative changes C5-C7 levels. Discussed by complexes result i n variable mild to moderate spinal canal stenosis here. Additional hypertrophic facet and uncovertebral joint arthropathy throughout. Grade 1 anterolisthesis is seen at C3-C4, C4-C5, and C7-T1. No acute fracture of the cervical spine. Variable moderate neuroforaminal stenoses throughout. Sagittal and coronal reformatted images confirm above findings. COMBINED IMPRESSION: 1. Left frontal and left supraorbital soft tissue contusions. No underlying calvarial fracture or acu te intracranial abnormality seen. As compared to 05/20/2027, there has been progression to extensive c hronic encephalomalacia in the right MCA territory. 2. No acute fracture of the cervical spine. Moderate to advanced multilevel spondylotic change with d egenerative grade 1 anterolistheses at C3-C4, C4-C5, and C7-T1.
--- NOTE | 2019-07-06 17:59 | XR ---
EXAMINATION TYPE: XR chest 2V DATE OF EXAM: 07/06/2019 COMPARISON: 06/06/2019 HISTORY: 74-year-old female fall, pain TECHNIQUE: AP and lateral views FINDINGS: Heart is mildly enlarged. Mild interstitial prominence has a chronic appearance. No jenny consolidati on or pleural effusion. Dextro convex scoliosis of the thoracic spine. IMPRESSION: Mild cardiomegaly. Chronic appearing changes. No definite acute process.
[2019-07-06 20:48] VITALS: BP 134/99; PULSE 72
== END 2019-07-06 20:20 | disposition home or self-care (01) ==
LOC: EC 16:26
DX: S00.212A Abrasion of left eyelid and periocular area, initial encounter (principal); I48.91 Unspecified atrial fibrillation; E78.5 Hyperlipidemia, unspecified; I69.954 Hemiplegia and hemiparesis following unspecified cerebrovascular disease affecting left non-dominant side; Z79.899 Other long term (current) drug therapy; Z88.0 Allergy status to penicillin; W05.0XXA Fall from non-moving wheelchair, initial encounter
CPT/HCPCS: 70450; 71046; 72125; 99284

== ENCOUNTER 2019-07-08 13:54 | Emergency (ER) | payer MEDICARE, BC ==
[2019-07-08 13:59] VITALS: RESP 16; TEMP 97.9
--- NOTE | 2019-07-08 14:23 | ED ---
General Adult HPI - General Chief complaint: Neuro Symptoms/Deficit Stated complaint: dizziness Time Seen by Provider: 07/08/19 13:56 Source: patient, EMS, RN notes reviewed, old records reviewed Mode of arrival: EMS Limitations: no limitations - History of Present Illness Initial comments: 74-year-old female with previous stroke and residual left-sided deficit presenting for evaluation of an episode of dizziness and nausea. There was no vomiting reported. Patient was being turned in bed, she felt dizzy and felt so she was going to vomit. The symptoms lasted just minutes and resolved without treatment. According to assisted staff they had contacted the physician who recommended the patient presented to the emergency department. Patient has no complaints the time my evaluation. Her dizziness is completely resolved. She is in a assisted for rehabilitation with right upper extremity fracture, left-sided weakness status post CVA. She does report uterine cancer which is currently being evaluated. She is alert and oriented with no complaints, no chest pain, no dyspnea, no fever, no abdominal pain, no vomiting or diarrhea. No headache. - Related Data Home Medications Medication Instructions Recorded Confirmed Acetaminophen Tab [Tylenol] 650 mg PO Q4H PRN 06/06/19 06/06/19 Artificial Tears-Hypromellose 1 drops BOTH EYES TID PRN 06/06/19 06/06/19 [Artificial Tear Drops] Atorvastatin [Lipitor] 40 mg PO HS 06/06/19 06/06/19 Benzocaine/Menthol Lozeng [Cepacol 1 lozenge MUCOUS MEM Q4HR PRN 06/06/19 06/06/19 lozenge] Omeprazole 20 mg PO HS 06/06/19 06/06/19 Sodium Chloride [[place]] 1 spray EA NOSTRIL DAILY PRN 06/06/19 06/06/19 Previous Rx's Medication Instructions Recorded HYDROcodone/APAP 5-325MG [[place] 1 tab PO Q4HR PRN 3 Days #18 tab 06/09/19 5-325] Metoprolol Tartrate [Lopressor] 50 mg PO BID #0 tab 06/09/19 Rivaroxaban [Xarelto] 15 mg PO BID-W/MEALS tab 06/09/19 Allergies Allergy/AdvReac Type Severity Reaction Status Date / Time Penicillins Allergy Rash/Hives Verified 06/06/19 17:52 Review of Systems ROS Statement: Those systems with pertinent positive or pertinent negative responses have been documented in the HPI. ROS Other: All systems not noted in ROS Statement are negative. Past Medical History Past Medical History: Hyperlipidemia Additional Past Medical History / Comment(s): stroke (05/2019) left side paralysis History of Any Multi-Drug Resistant Organisms: None Reported Past Surgical History: No Surgical Hx Reported Past Anesthesia/Blood Transfusion Reactions: No Reported Reaction Past Psychological History: No Psychological Hx Reported Smoking Status: Never smoker Past Alcohol Use History: None Reported Past Drug Use History: None Reported - Past Family History Father Family Medical History: Unable to Obtain General Exam Limitations: no limitations General appearance: alert, in no apparent distress Head exam: Present: atraumatic, normocephalic Eye exam: Present: normal appearance, PERRL Neck exam: Present: normal inspection. Absent: tenderness, meningismus Respiratory exam: Present: normal lung sounds bilaterally. Absent: respiratory distress Cardiovascular Exam: Present: regular rate, irregular rhythm (Rate controlled A. fib) GI/Abdominal exam: Present: soft. Absent: distended, tenderness Extremities exam: Present: normal inspection, normal capillary refill. Absent: pedal edema Neurological exam: Present: alert, motor sensory deficit (Left hemiplegia) Psychiatric exam: Present: normal affect, normal mood Skin exam: Present: warm, dry, intact. Absent: cyanosis, diaphoretic Course Vital Signs 07/08/19 13:56 Temperature 97.9 F Pulse Rate 85 Respiratory 16 Rate Blood Pressure 107/63 O2 Sat by Pulse 98 Oximetry Medical Decision Making - Medical Decision Making 74 female presenting for evaluation of an episode of dizziness and nausea while being turned in bed. She has no complaints time my evaluation. She has a focal neurologic exam with left hemiplegia status post CVA. Patient had head CT 2 days ago with associated fall from wheelchair. The CT showed encephalomalacia on the right consistent with previous CVA. There is no intracranial hemorrhage. We did speak with the assisted nurse regarding the complaint. She states that the patient had been dizzy and an episode of nausea while she was being turned. No other issues reported. Patient eager for return to the assisted with no complaints. Disposition Clinical Impression: Vertigo Disposition: HOME SELF-CARE Condition: Fair Instructions (If sedation given, give patient instructions): Vertigo (ED) Is patient prescribed a controlled substance at d/c from ED?: No Referrals: Steve Rodrigez MD [Primary Care Provider] - 1-2 days Time of Disposition: 14:35
[2019-07-08 15:57] VITALS: BP 132/76; PULSE 76
== END 2019-07-08 15:56 | disposition home or self-care (01) ==
LOC: EC 13:54
DX: R42 Dizziness and giddiness (principal); R11.0 Nausea; I69.954 Hemiplegia and hemiparesis following unspecified cerebrovascular disease affecting left non-dominant side; I48.91 Unspecified atrial fibrillation; E78.5 Hyperlipidemia, unspecified; Z79.899 Other long term (current) drug therapy; Z88.0 Allergy status to penicillin
CPT/HCPCS: 99284

== ENCOUNTER 2019-08-30 20:51 | Emergency (ER) | payer MEDICARE, BC ==
[2019-08-30 21:03] VITALS: BP 122/83; PULSE 96; RESP 18; TEMP 97.9
--- NOTE | 2019-08-30 21:46 | ED ---
Recheck HPI - General Chief Complaint: Recheck/Abnormal Lab/Rx Stated Complaint: STAT CT Time Seen by Provider: 08/30/19 21:04 Source: EMS, RN notes reviewed, old records reviewed Mode of arrival: EMS Limitations: no limitations - History of Present Illness Initial Comments: Patient is a 74-year-old female, a new Patient of Dr. Saldana at [facility]. Patient presents today with no complaints. Patient was apparently sent here for a CT abdomen and pelvis to evaluate for uterine cancer history. She denies any abdominal pain. She denies any vaginal bleeding. She states that she's had normal bowel movement yesterday and complains of no issues with urination. She does report that she is incontinent. Patient states that she has no other significant complaints. Patient reports that staff at [facility] were unsure why she was sent here. - Related Data Home Medications Medication Instructions Recorded Confirmed Acetaminophen Tab [Tylenol] 650 mg PO Q4H PRN 06/06/19 07/08/19 Artificial Tears-Hypromellose 1 drops BOTH EYES TID PRN 06/06/19 07/08/19 [Artificial Tear Drops] Atorvastatin [Lipitor] 40 mg PO HS 06/06/19 07/08/19 Omeprazole 20 mg PO HS 06/06/19 07/08/19 Sodium Chloride [[place]] 1 spray EA NOSTRIL DAILY PRN 06/06/19 07/08/19 ALPRAZolam [Xanax] 0.25 mg PO Q8HR PRN 07/08/19 07/08/19 HYDROcodone/APAP 5-325MG [[place] 1 tab PO Q6H PRN 07/08/19 07/08/19 5-325] Magnesium Hydroxide [Milk of 2,400 mg PO DAILY PRN 07/08/19 07/08/19 Magnesia] Previous Rx's Medication Instructions Recorded Metoprolol Tartrate [Lopressor] 50 mg PO BID #0 tab 06/09/19 Rivaroxaban [Xarelto] 15 mg PO BID-W/MEALS tab 06/09/19 Allergies Allergy/AdvReac Type Severity Reaction Status Date / Time Penicillins Allergy Rash/Hives Verified 07/08/19 14:54 Review of Systems ROS Statement: Those systems with pertinent positive or pertinent negative responses have been documented in the HPI. ROS Other: All systems not noted in ROS Statement are negative. Past Medical History Past Medical History: Dementia, Hyperlipidemia Additional Past Medical History / Comment(s): stroke (05/2019) left side paralysis History of Any Multi-Drug Resistant Organisms: None Reported Past Surgical History: No Surgical Hx Reported Past Anesthesia/Blood Transfusion Reactions: No Reported Reaction Past Psychological History: No Psychological Hx Reported Smoking Status: Never smoker Past Alcohol Use History: None Reported Past Drug Use History: None Reported - Past Family History Father Family Medical History: Unable to Obtain General Exam - General Exam Comments Initial Comments: 74-year-old female. History of dementia. Is alert and oriented to self. Patient is reportedly at baseline. Limitations: no limitations General appearance: alert, in no apparent distress Head exam: Present: atraumatic, normocephalic, normal inspection Eye exam: Present: normal appearance, PERRL, EOMI. Absent: scleral icterus, conjunctival injection, periorbital swelling ENT exam: Present: normal exam, mucous membranes moist Neck exam: Present: normal inspection. Absent: tenderness, meningismus, lymphadenopathy Respiratory exam: Present: normal lung sounds bilaterally. Absent: respiratory distress, wheezes, rales, rhonchi, stridor Cardiovascular Exam: Present: regular rate, normal rhythm, normal heart sounds. Absent: systolic murmur, diastolic murmur, rubs, gallop, clicks GI/Abdominal exam: Present: soft, normal bowel sounds. Absent: distended, tenderness, guarding, rebound, rigid Extremities exam: Present: normal inspection, full ROM, normal capillary refill. Absent: tenderness, pedal edema, joint swelling, calf tenderness Back exam: Present: normal inspection Neurological exam: Present: alert, oriented X3, CN II-XII intact Psychiatric exam: Present: normal affect, normal mood Skin exam: Present: warm, dry, intact, normal color. Absent: rash Course Vital Signs 08/30/19 20:56 Temperature 97.9 F Pulse Rate 96 Respiratory 18 Rate Blood Pressure 122/83 O2 Sat by Pulse 97 Oximetry - Reevaluation(s) Reevaluation #1: 08/30/19 22:21 Dr. Odom was able to discuss the case with Dr. Camara who does confirm that he wanted Patient have a computed tomography scan. He initially planned to have this ordered out patiently but since Patient is in the emergency department she can proceed with getting here. We will be waiting for BUN and creatinine and then Patient will have CT. Medical Decision Making - Medical Decision Making Patient is a 74-year-old female sent by new PCP for an outpatient computed tomography scan. She was sent from shelter to have the computed tomography scan stat in ER. She denies any physical complaints at this time. We did contact the patient's PCP Dr. Saldana. He discussed with Dr. Odom. Patient lab BUN/creatinine completed and normal, and computed tomography scan of abdomen and pelvis will be completed at this time. Computed tomography scan shows t hickened endometrium which is decreased in size. Also evidence of mild cardiomegaly and atelectasis lung bases. No other acute complaints. Patient was discharged be discharged back to [facility] at this time. - Lab Data Result diagrams: 08/30/19 22:24 Lab Results 08/30/19 08/30/19 Range/Units 22:24 22:24 BUN 15 (7-17) mg/dL Creatinine 0.56 (0.52-1.04) mg/dL Est GFR (CKD-EPI)AfAm >90 (>60 ml/min/1.73 sqM) Est GFR (CKD-EPI)NonAf >90 (>60 ml/min/1.73 sqM) Creatine Kinase 30 (30-135) U/L - Radiology Data Radiology results: report reviewed CT shows mild cardiomegaly. Mild subsegmental atelectasis in the lung base increased to old exam. Fibroid uterus with thickened endometrium. Endometrium is however decreased in thickness compared to previous exam. Disposition Clinical Impression: Thickened endometrium Disposition: DC/TRNS INTERMEDIATE CARE FAC Condition: Good Additional Instructions: Continue to follow with outpatient [facility] and primary care physician. Is patient prescribed a controlled substance at d/c from ED?: No Referrals: Steve Rodrigez MD [Primary Care Provider] - 1-2 days Time of Disposition: 23:47 - Out of Hospital Transfer - Req. Specs Out of Hospital Transfer - Requested Specifics: Other Non-Acute ([facility])
[2019-08-30 22:51] LABS: Blood Urea Nitrogen 15 mg/dL (7-17); Creatine Kinase 30 U/L (30-135)
[2019-08-30 23:14] LABS: African American GFR (CKD) >90 (>60 ml/min/1.73 sqM); Non-African American GFR(CKD) >90 (>60 ml/min/1.73 sqM)
--- NOTE | 2019-08-30 23:43 | CT ---
EXAMINATION TYPE: CT abdomen pelvis w con DATE OF EXAM: 08/30/2019 COMPARISON: 05/11/2019 HISTORY: Pain, R/O Uterine Cancer CT DLP: 1013.80 mGycm Automated exposure control for dose reduction was used. CONTRAST: Performed with IV Contrast, patient injected with 100 mL of Isovue 300. There is some mild scarring and atelectasis at the lung bases. Heart is enlarged. There is no pericar dial effusion. There is no pleural effusion. Liver shows no focal defect. Gallbladder appears normal. Spleen is intact. There is no pancreatic mass. Stomach is intact. There is no adrenal mass. Kidneys show satisfactory contrast opacification. There is no hydronephrosi s. There is 1 cm cortical cyst anterior right kidney. There is no retroperitoneal adenopathy. Abdomin al aorta is atheromatous. Bladder distends smoothly. There is no inguinal hernia. Uterus is anteverte d. There is some enlargement of the uterine fundus consistent with fibroids. This possible thickening of the endometrium. This measures up to 2 cm. There is no mesenteric edema. There is no ascites or free air. There is no sign of a bowel obstructio n. Appendix is not seen. There is no sign of thickened appendix. Small bowel appears fairly normal. T here is mild thoracolumbar levoscoliosis. Bony pelvis is intact. IMPRESSION: Mild cardiomegaly. Mild subsegmental atelectasis at the lung bases increased compared to old exam. Fibroid uterus with thickened endometrium. Endometrium however is decreased in thickness compared to previous exam.
== END 2019-08-31 00:41 ==
LOC: EC 20:51
DX: R93.89 Abnormal findings on diagnostic imaging of other specified body structures (principal); E78.5 Hyperlipidemia, unspecified; I51.7 Cardiomegaly; J98.11 Atelectasis; Z79.899 Other long term (current) drug therapy; Z88.0 Allergy status to penicillin; Z86.73 Personal history of transient ischemic attack (TIA), and cerebral infarction without residual deficits; Z85.42 Personal history of malignant neoplasm of other parts of uterus
CPT/HCPCS: 36415; 82565; 82550; 84520; 74177; 99285; Q9967

== ENCOUNTER 2022-03-01 18:02 | Inpatient (IN) | payer MEDICARE, BC ==
[2022-03-01 18:06] LABS: Glucose,Whole Blood 107 mg/dL (70-110)
[2022-03-01] MEDS ORDERED: SODIUM CHLORIDE 0.9% 500 ML 500 ML IV STA (18:10)
[2022-03-01] MEDS ORDERED: SODIUM CHLORIDE 0.9% 1,000 ML IV STA (18:10)
[2022-03-01 18:28] LABS: Basophils # (A) 0.1 k/uL (0-0.2); Basophils % (A) 1 %; Eosinophils # (A) 0.3 k/uL (0-0.7); Eosinophils % (A) 3 %; HCT 40.8 % (34.0-46.0); HGB 13.6 gm/dL (11.4-16.0); Lymphocytes # (A) 1.7 k/uL (1.0-4.8); Lymphocytes % (A) 17 %; MCH 31.4 pg (25.0-35.0); MCHC 33.4 g/dL (31.0-37.0); MCV 93.9 fL (80.0-100.0); Mean Platelet Volume 7.8; Monocytes # (A) 0.3 k/uL (0-1.0); Monocytes % (A) 3 %; Neutrophils # (A) 7.3 k/uL (1.3-7.7); Neutrophils % (A) 75 %; Platelet Count 251 k/uL (150-450); RBC 4.34 m/uL (3.80-5.40); RDW 12.8 % (11.5-15.5); WBC 9.8 k/uL (3.8-10.6)
[2022-03-01 18:32] LABS: Albumin 3.3 g/dL (3.5-5.0); Calcium 8.5 mg/dL (8.4-10.2); Potassium 3.9 mmol/L (3.5-5.1); Total Bilirubin 0.2 mg/dL (0.2-1.3); Total Protein 6.1 g/dL (6.3-8.2)
[2022-03-01 18:42] LABS: Partial Thromboplastin Time 24.3 sec (22.0-30.0); Prothrombin Time 10.3 sec (9.0-12.0)
--- NOTE | 2022-03-01 18:54 | CT ---
EXAMINATION TYPE: CT brain wo con for TPA CT DLP: 1243.6 mGycm, Automated exposure control for dose reduction was used. DATE OF EXAM: 03/01/2022 6:26 PM COMPARISON: 07/06/2019.. CLINICAL INDICATION:Female, 77 years old with history of Neuro deficit, acute, stroke suspected, Neur o deficit, acute, stroke suspected TECHNIQUE: Brain: Axial CT images of the brain were obtained with coronal and sagittal reformats created and rev iewed. Contrast used: None. Oral contrast used: None. FINDINGS: Brain: Extra-axial spaces: No abnormal extra-axial fluid collections. Ventricular system: Dilatation in proportion to cerebral atrophy and from prior injury. 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 Cerebral atrophy. No acute intraparenchymal hemorrhage or mass effect. The remainder of the simms-white junctions are well differentiated. Scattered hypoattenuating areas are seen within the white matter. Cerebellum: Cerebellar atrophy Mass effect: No evidence of midline shift. Intracranial vasculature: unremarkable Soft tissues: Normal. Calvarium/osseous structures: No depressed skull fracture. Similar perfusion of the calvarium in the right frontal bone likely from prior injury. Paranasal sinuses and mastoid air cells: Mild scattered paranasal sinus disease. Visualized orbits: Orbital contents are intact. IMPRESSION: 1. Encephalomalacia of the right MCA territory from prior injury with out evidence for acute intracra nial process. 2. Nonspecific white matter changes, likely secondary to chronic small vessel ischemic disease.
--- NOTE | 2022-03-01 19:01 | CT ---
EXAMINATION TYPE: CT angio head neck CT DLP: 780.9 mGycm, Automated exposure control for dose reduction was used. DATE OF EXAM: 03/01/2022 6:43 PM COMPARISON: CT brain same day, CT brain 07/06/[address] angiogram neck 05/20/2019. CLINICAL INDICATION:Female, 77 years old with history of Neuro deficit, acute, stroke suspected; Neur o deficit, acute, stroke suspected TECHNIQUE: Axially acquired helical CT angiogram of the head and neck was obtained with contrast. Axi al images are supplemented with 3D reconstructions [facility] NASCET criteria used. Contrast used:65cc mL of Isovue 370 with IV Contrast, Oral contrast used: None. FINDINGS: Redemonstration of of dense osseous outgrowth of the right frontal calvarium. CTA HEAD: No evidence of acute intracranial hemorrhage, mass effect, or midline shift. The ventricles, sulci, a nd cisterns are unremarkable. Encephalomalacia of the right MCA territory from prior injury. The visualized portions of the internal carotid arteries, middle cerebral arteries, anterior cerebral arteries, and posterior cerebral arteries are patent. origin of the left posterior cerebral ar varun. The basilar and vertebral arteries are patent. Dominant left vertebral artery. CTA NECK: Right Carotid System: The common carotid artery and external carotid artery are patent. The carotid bifurcation demonstrate s no evidence of hemodynamically significant stenosis. The remaining portions of the internal carotid artery demonstrate normal size without significant narrowing. Left Carotid System: The common carotid artery and external carotid artery are patent. The carotid bifurcation demonstrate s no evidence of hemodynamically significant stenosis. The remaining portions of the internal carotid artery demonstrate normal size without significant narrowing. Vertebral arteries are patent without evidence hemodynamically significant stenosis. There is a three-vessel aortic arch. The origins of the great vessels are patent. No evidence of hemo dynamically significant stenosis. IMPRESSION: 1. No evidence of dissection of the cervical internal carotid arteries or vertebral arteries or any e vidence of significant stenosis at the carotid bifurcations. 2. No evidence of intracranial high-grade stenosis or intracranial aneurysm.
--- NOTE | 2022-03-01 19:11 | XR ---
EXAMINATION TYPE: XR chest 1V portable DATE OF EXAM: 03/01/2022 7:02 PM COMPARISON: Chest radiographs from 08/02/2019 TECHNIQUE: XR chest 1V portable Portable AP radiograph o f the chest. CLINICAL INDICATION:Female, 77 years old with history of altered mental status; FINDINGS: Lungs/Pleura: Prominent interstitial lung markings are seen scattered throughout the lungs. No eviden ce of focal consolidation, pneumothorax or pleural effusion. Pulmonary vascularity: Unremarkable. Heart/mediastinum: Cardiomediastinal silhouette is enlarged and stable. Musculoskeletal: No acute osseous pathology. IMPRESSION: Chronic changes without acute pulmonary process. No significant change from prior.
[2022-03-01 20:17] LABS: Appearance,Urine Cloudy (Clear); Bacteria,Urine Many /hpf; Bilirubin,Urine Negative (Negative); Blood,Urine Negative (Negative); Color,Urine Light Yellow; Glucose,Urine (UA) Negative (Negative); Hyaline Casts,Urine 3 /lpf (0-2); Ketones,Urine Negative (Negative); Leukocyte Esterase,Urine Large (Negative); Mucus,Urine Occasional /hpf; Nitrite,Urine Positive (Negative); Protein,Urine Negative (Negative); RBC,Urine 2 /hpf (0-5); Specific Gravity,Urine 1.022 (1.001-1.035); Squamous Epithelial Cell,Urine <1 /hpf (0-4); Urobilinogen,Urine <2.0 mg/dL (<2.0); WBC,Urine 77 /hpf (0-5)
--- NOTE | 2022-03-01 20:37 | ED ---
General Adult HPI - General Chief complaint: Neuro Symptoms/Deficit Stated complaint: stroke symptoms Time Seen by Provider: 03/01/22 18:09 Source: patient, EMS Mode of arrival: EMS Limitations: altered mental status - History of Present Illness Initial comments: This 77-year-old female presents by EMS from [facility] his code stroke regarding 1. She apparently was sent over as she was having some slurred speech. She also have left-sided paralysis. This left-sided paralysis apparently is an old finding from previous stroke 2 years ago. Patient also has dementia and is unable to give any pertinent history. Her later does show up and states that she has chronic left-sided paralysis. He states that her speech is slightly off as compared to normal. She was having improved speech earlier this morning when he saw her. She has multiple medical complaints. She does not have any current problems that he is aware of. Patient is a not a reliable historian. - Related Data Home Medications Medication Instructions Recorded Confirmed Artificial Tears-Hypromellose 1 drops BOTH EYES Q4H PRN 06/06/19 03/01/22 [Artificial Tear Drops] Atorvastatin [Lipitor] 40 mg PO HS 06/06/19 03/01/22 Omeprazole 20 mg PO DAILY 06/06/19 03/01/22 Calcium Carbonate/Vitamin D3 1 tab PO TID@0800,1200,1800 03/01/22 03/01/22 [Calcium 600-Vit D3 5 Mcg (200 Iu)] Cetirizine HCl [Zyrtec] 10 mg PO DAILY 03/01/22 03/01/22 Clobetasol Propionate [Clobex .05% 1 applic TOPICAL TUSA 03/01/22 03/01/22 Shampoo] Ergocalciferol (Vitamin D2) 1,250 mcg PO QMONTHLY 03/01/22 03/01/22 [Drisdol] Fluocinonide Solution 0.05% 1 applic TOPICAL HS PRN 03/01/22 03/01/22 HYDROcodone/APAP 7.5-325MG [[place] 1 tab PO Q6H PRN 03/01/22 03/01/22 7.5-325] Ketoconazole 2% Shampoo [Nizoral] 1 applic TOPICAL TUSA 03/01/22 03/01/22 Loteprednol Etabonate [Lotemax] 1 drop BOTH EYES BID 03/01/22 03/01/22 Metoprolol Tartrate [Lopressor] 25 mg PO BID 03/01/22 03/01/22 Olopatadine HCl [Patanol 0.1%] 1 drop BOTH EYES Q12H PRN 03/01/22 03/01/22 Potassium Chloride ER [K-Dur 10] 10 meq PO HS 03/01/22 03/01/22 Rivaroxaban [Xarelto] 20 mg PO W/SUPPER 03/01/22 03/01/22 Sennosides/Docusate Sodium 2 tab PO BID 03/01/22 03/01/22 [Senna-S 8.6-50 mg Tablet] Sertraline [Zoloft] 100 mg PO BID@0800,1600 03/01/22 03/01/22 Vit C/E/Zn/Coppr/Lutein/Zeaxan 1 cap PO BID 03/01/22 03/01/22 [Preservision Areds 2 Softgel] bisacodyL [Dulcolax] 10 mg RECTAL DAILY PRN 03/01/22 03/01/22 clonazePAM [KlonoPIN] 1 mg PO TID@0500,1300,2000 03/01/22 03/01/22 hydrOXYzine HCL [Hydroxyzine HCl] 10 mg PO HS 03/01/22 03/01/22 polyethylene glycoL 3350 [Miralax] 17 gm PO DAILY 03/01/22 03/01/22 Allergies Allergy/AdvReac Type Severity Reaction Status Date / Time Penicillins Allergy Rash/Hives Verified 07/08/19 14:54 Review of Systems ROS Statement: Those systems with pertinent positive or pertinent negative responses have been documented in the HPI. ROS Other: All systems not noted in ROS Statement are negative. Past Medical History Past Medical History: Dementia, Hyperlipidemia Additional Past Medical History / Comment(s): stroke (05/2019) left side paralysis History of Any Multi-Drug Resistant Organisms: None Reported Past Surgical History: No Surgical Hx Reported Past Anesthesia/Blood Transfusion Reactions: No Reported Reaction Past Psychological History: No Psychological Hx Reported Smoking Status: Unknown if ever smoked Past Alcohol Use History: None Reported Past Drug Use History: None Reported - Past Family History Father Family Medical History: Unable to Obtain General Exam - General Exam Comments Initial Comments: GENERAL: The patient is well nourished and well hydrated. VITAL SIGNS: Heart rate, blood pressure, respiratory rate reviewed as recorded in nurse's notes. EYES: Pupils are round and reactive. Extraocular movements are intact. No conjunctival / lid redness or swelling. ENT: No external evidence of injury, swelling, or ecchymosis. Airway is patent. Throat is clear. NECK: Nontender. No swelling or evidence of injury. No subcutaneous emphysema. Trachea is midline. No thyroid mass. HEART: Regular rate and rhythm. Good peripheral pulses. LUNGS/CHEST: Breath sounds clear and equal bilaterally. No rales, rhonchi, or wheezes. No ecchymosis, subcutaneous emphysema, or tenderness. ABDOMEN: Abdomen soft without tenderness. No palpable masses or organomegaly. No peritoneal signs. No abdominal wall swelling or ecchymosis. EXTREMITIES: No extremity tenderness. Normal muscle tone and function. No thoracolumbar tenderness. NEUROLOGIC: The patient has paralysis of the left upper and left lower extremity. There is decreased sensation. She has some slurred speech but will answer occasional questions. NIH stroke scale is 15 but most of her findings are apparently are chronic in nature. There maybe a slight left facial droop. SKIN: No abrasions or ecchymosis is noted. No induration or masses noted. PSYCHIATRIC: Alert and oriented. Appropriate behavior and judgment. Limitations: altered mental status Course Vital Signs 03/01/22 03/01/22 03/01/22 18:03 18:09 18:50 Temperature Pulse Rate 62 63 56 L Respiratory 18 18 18 Rate Blood Pressure 113/65 113/65 95/50 O2 Sat by Pulse 94 L 92 L 95 Oximetry 03/01/22 03/01/22 19:31 20:06 Temperature 97.4 F L Pulse Rate 54 L 60 Respiratory 14 16 Rate Blood Pressure 106/64 111/67 O2 Sat by Pulse 99 98 Oximetry Medical Decision Making - Medical Decision Making The patient was seen and examined. All diagnostics are reviewed. IV is established. EKG from EMS is reviewed and shows likely atrial fibrillation with controlled rate. She is placed on a cardiac sonographer which shows suspected atrial fibrillation with controlled rate. The laboratory overall is unremarkable. Chest x-ray is negative. The noncontrasted computed tomography scan of the brain shows encephalomalacia consistent with previous computed tomography scan 2 years ago with no acute process. The CTA of the head and neck does not show any acute process. The later does show up and ER course and is an excellent historian. He states that he was not aware that they were going to send the patient to the emergency department. Urinalysis does show evidence of urinary tract infection. It is felt as though her symptoms likely are related to a urinary tract infection. Rocephin is initiated. It is felt as though the patient would benefit from admission to the hospital. is agreeable. Case will be discussed with internal medicine shortly. - Lab Data Result diagrams: 03/01/22 18:20 03/01/22 18:20 Lab Results 03/01/22 03/01/22 03/01/22 Range/Units 18:05 18:20 18:20 WBC 9.8 (3.8-10.6) k/uL RBC 4.34 (3.80-5.40) m/uL Hgb 13.6 (11.4-16.0) gm/dL Hct 40.8 (34.0-46.0) % MCV 93.9 (80.0-100.0) fL MCH 31.4 (25.0-35.0) pg MCHC 33.4 (31.0-37.0) g/dL RDW 12.8 (11.5-15.5) % Plt Count 251 (150-450) k/uL MPV 7.8 Neutrophils % 75 % Lymphocytes % 17 % Monocytes % 3 % Eosinophils % 3 % Basophils % 1 % Neutrophils # 7.3 (1.3-7.7) k/uL Lymphocytes # 1.7 (1.0-4.8) k/uL Monocytes # 0.3 (0-1.0) k/uL Eosinophils # 0.3 (0-0.7) k/uL Basophils # 0.1 (0-0.2) k/uL PT 10.3 (9.0-12.0) sec INR 1.0 (<1.2) APTT 24.3 (22.0-30.0) sec Sodium (137-145) mmol/L Potassium (3.5-5.1) mmol/L Chloride (98-107) mmol/L Carbon Dioxide (22-30) mmol/L Anion Gap mmol/L BUN (7-17) mg/dL Creatinine (0.52-1.04) mg/dL Est GFR (CKD-EPI)AfAm (>60 ml/min/1.73 sqM) Est GFR (CKD-EPI)NonAf (>60 ml/min/1.73 sqM) Glucose (74-99) mg/dL POC Glucose (mg/dL) 107 (70-110) mg/dL POC Glu Livestock Slaughterer ID [place], Dereck Calcium (8.4-10.2) mg/dL Total Bilirubin (0.2-1.3) mg/dL AST (14-36) U/L ALT (4-34) U/L Alkaline Phosphatase (38-126) U/L Troponin I (0.000-0.034) ng/mL Total Protein (6.3-8.2) g/dL Albumin (3.5-5.0) g/dL Urine Color Urine Appearance (Clear) Urine pH (5.0-8.0) Ur Specific [place] (1.001-1.035) Urine Protein (Negative) Urine Glucose (UA) (Negative) Urine Ketones (Negative) Urine Blood (Negative) Urine Nitrite (Negative) Urine Bilirubin (Negative) Urine Urobilinogen (<2.0) mg/dL Ur Leukocyte Esterase (Negative) Urine RBC (0-5) /hpf Urine WBC (0-5) /hpf Urine WBC Clumps (None) /hpf Ur Squamous Epith Cells (0-4) /hpf Urine Bacteria (None) /hpf Hyaline Casts (0-2) /lpf Urine Mucus (None) /hpf 03/01/22 03/01/22 03/01/22 Range/Units 18:20 18:20 20:06 WBC (3.8-10.6) k/uL RBC (3.80-5.40) m/uL Hgb (11.4-16.0) gm/dL Hct (34.0-46.0) % MCV (80.0-100.0) fL MCH (25.0-35.0) pg MCHC (31.0-37.0) g/dL RDW (11.5-15.5) % Plt Count (150-450) k/uL MPV Neutrophils % % Lymphocytes % % Monocytes % % Eosinophils % % Basophils % % Neutrophils # (1.3-7.7) k/uL Lymphocytes # (1.0-4.8) k/uL Monocytes # (0-1.0) k/uL Eosinophils # (0-0.7) k/uL Basophils # (0-0.2) k/uL PT (9.0-12.0) sec INR (<1.2) APTT (22.0-30.0) sec Sodium 136 L (137-145) mmol/L Potassium 3.9 (3.5-5.1) mmol/L Chloride 104 (98-107) mmol/L Carbon Dioxide 27 (22-30) mmol/L Anion Gap 5 mmol/L BUN 17 (7-17) mg/dL Creatinine 0.79 (0.52-1.04) mg/dL Est GFR (CKD-EPI)AfAm 84 (>60 ml/min/1.73 sqM) Est GFR (CKD-EPI)NonAf 73 (>60 ml/min/1.73 sqM) Glucose 112 H (74-99) mg/dL POC Glucose (mg/dL) (70-110) mg/dL POC Glu Livestock Slaughterer ID Calcium 8.5 (8.4-10.2) mg/dL Total Bilirubin 0.2 (0.2-1.3) mg/dL AST 35 (14-36) U/L ALT 30 (4-34) U/L Alkaline Phosphatase 125 (38-126) U/L Troponin I <0.012 (0.000-0.034) ng/mL Total Protein 6.1 L (6.3-8.2) g/dL Albumin 3.3 L (3.5-5.0) g/dL Urine Color Light Yellow Urine Appearance Cloudy H (Clear) Urine pH 6.0 (5.0-8.0) Ur Specific [place] 1.022 (1.001-1.035) Urine Protein Negative (Negative) Urine Glucose (UA) Negative (Negative) Urine Ketones Negative (Negative) Urine Blood Negative (Negative) Urine Nitrite Positive H (Negative) Urine Bilirubin Negative (Negative) Urine Urobilinogen <2.0 (<2.0) mg/dL Ur Leukocyte Esterase Large H (Negative) Urine RBC 2 (0-5) /hpf Urine WBC 77 H (0-5) /hpf Urine WBC Clumps Few H (None) /hpf Ur Squamous Epith Cells <1 (0-4) /hpf Urine Bacteria Many H (None) /hpf Hyaline Casts 3 H (0-2) /lpf Urine Mucus Occasional H (None) /hpf Disposition Clinical Impression: Slurred speech, History of CVA (cerebrovascular accident), Urinary tract infection Disposition: ADMITTED IP TO THIS HOSP Condition: Fair Is patient prescribed a controlled substance at d/c from ED?: No Referrals: Rusty Garcia DO [Primary Care Provider] - 1-2 days Time of Disposition: 20:53 Decision Date: 03/01/22 Decision Time: 20:53
[2022-03-01] MEDS ORDERED: ARTIFICIAL TEARS-HYPROMELLOSE DROPS 15 ML BTL BOTH EYES PRN (20:44)
[2022-03-01] MEDS ORDERED: KETOTIFEN 0.025% OPHTH DROPS 5 ML BTL BOTH EYES PRN (20:44)
[2022-03-01] MEDS ORDERED: FLUOCINONIDE 0.05% TOPICAL PRN (20:44)
[2022-03-01] MEDS ORDERED: bisacodyL 10 MG SUPP RECTAL PRN (20:44)
[2022-03-01] MEDS ORDERED: ONDANSETRON 4 MG/2 ML VIAL IVP PRN (20:53)
[2022-03-01] MEDS ORDERED: ACETAMINOPHEN TAB 325 MG TAB PO PRN (20:53)
[2022-03-01] MEDS ORDERED: NALOXONE 0.4 MG/ML 1 ML VIAL IV PRN (20:53)
[2022-03-01] MEDS: METOPROLOL TARTRATE 25 MG TAB PO SCH (21:32)
[2022-03-01] MEDS: prednisoLONE ACETATE 1% OPHTH DROPS 5 ML BTL BOTH EYES SCH (21:58)
[2022-03-01] MEDS: hydrOXYzine HCL 10 MG TAB PO SCH (21:59)
[2022-03-01] MEDS: SENNOSIDES-DOCUSATE SODIUM 1 EACH TAB PO SCH (22:02)
[2022-03-01] MEDS: POTASSIUM CHLORIDE ER 10 MEQ TAB.ER.PRT PO SCH (22:04)
[2022-03-01] MEDS: ATORVASTATIN 40 MG TAB PO SCH (22:05)
[2022-03-01] MEDS: VIT A,C & E-LUTEIN-MINERALS 1 EACH TAB PO SCH (22:06)
[2022-03-02] MEDS ORDERED: CLOBETASOL PROPIONATE TOPICAL SCH (09:00)
[2022-03-02] MEDS ORDERED: KETOCONAZOLE 2% SHAMPOO 1 APPLIC/ML TOPICAL SCH (09:00)
[2022-03-02] MEDS: LORATADINE 10 MG TAB PO SCH (09:52)
[2022-03-02] MEDS: SENNOSIDES-DOCUSATE SODIUM 1 EACH TAB PO SCH ×2 (09:52→21:31)
[2022-03-02] MEDS: polyethylene glycoL 3350 17 GM POWD.PACK PO SCH (09:52)
[2022-03-02] MEDS: CALCIUM CARB-VIT D 500 MG-5 MCG TAB PO SCH ×3 (09:52→21:31)
[2022-03-02] MEDS: PANTOPRAZOLE 40 MG TABLET PO SCH (09:52)
[2022-03-02] MEDS: clonazePAM 1 MG TAB PO SCH ×3 (09:52→21:31)
[2022-03-02] MEDS: SERTRALINE 100 MG TAB PO SCH ×2 (09:52→21:31)
[2022-03-02] MEDS: METOPROLOL TARTRATE 25 MG TAB PO SCH ×2 (09:52→21:31)
[2022-03-02] MEDS: VIT A,C & E-LUTEIN-MINERALS 1 EACH TAB PO SCH ×2 (09:53→21:31)
[2022-03-02] MEDS: prednisoLONE ACETATE 1% OPHTH DROPS 5 ML BTL BOTH EYES SCH ×2 (10:01→21:32)
--- NOTE | 2022-03-02 15:49 | P.HPIM ---
History of Present Illness H&P Date: 03/02/22 Chief Complaint: Altered mental status This is a pleasant 77-year-old patient being followed by Dr. Garcia at [facility]. EMS was called out. But the report. Nursing staff reported that they found the patient with altered mental status about 2 or 3 hours prior to that arriving. Had a baseline patient is able to communicate. Has some dementia. Has left-sided weakness. Per who gives the history patient does need help with feeding. Was able to use the right arm. Does have a diaper. Her blood pressures found to be low. This initial concern of a stroke as patient was moved to the ER. By the ER physician no new findings. Patient felt to have a UTI. According to patient doing better this morning. Able to answer some simple questions. No new weakness. feels patient otherwise at baseline. Neurologically. Review of systems: Difficult to obtained patient also be answer simple questions. Slow. Past medical history to include: Dementia, stroke with left-sided paralysis [May 2019], hyperlipidemia, uterine cancer, A. fib, pulmonary embolism [June 2019] Social history: Smoking no alcohol. . Long-term resident at [facility] Family history: Patient cannot tell Physical examination: VITAL SIGNS: 97, 66, 18, 94/50, 97% on 2 L GENERAL: BMI 39.7, laying in bed awake but lethargic but arousable. EYES: Pupils equal. Conjunctiva normal. HEENT: External appearance of nose and ears normal, oral cavity grossly normal. NECK: JVD not raised; masses not palpable. HEART: First and second heart sounds are normal; no edema. LUNGS: Respiratory rate normal; distant breath sounds. ABDOMEN: Soft, nontender, liver spleen not palpable, no masses palpable. PSYCH: Bit lethargic but arousable able to answer occasional simple questionsl. MUSCULOSKELETAL:No Clubbing/cyanosis;muscles-grossly intact, OA NEUROLOGICAL: Speech is slow, left leg 1/5 able to wiggle toes, left thumb 0/5. LYMPHATICS: No lymph nodes palpable in the axilla and neck INVESTIGATIONS, reviewed in the clinical context: WBC 9.8 hemoglobin 13.6 platelets 251 potassium 3.9 creatinine 0.79 UA: Nitrite positive leukoesterase positive WBC 27 WBC clumps few EKG tracing personally reviewed by me-sinus rhythm. Rate 57. Nonspecific T- wave changes. CT brain: Encephalomalacia of the right MCA. Without acute intracranial process. Nonspecific white matter changes. CT angiography: Unremarkable Chest x-ray film personally reviewed by me-[portable]: Possible chronic changes Assessment and plan: -Probable acute metabolic encephalopathy from UTI. TIA cannot be ruled out. Patient does have underlying UTI. Patient started having any focal findings. Has per the patient is improving mentation. Consult neurology. -Acute UTI with cystitis IV ceftriaxone. Urine culture -Left hemiparesis, from prior right MCA territory stroke in May 2019 -Multi-infarct dementia At baseline patient answer simple questions -Paroxysmal atrial fibrillation with a prior history of A. fib. Currently in sinus rhythm Lopressor. Xarelto -GERD Omeprazole -Chronic PE in June 2019 Xarelto -Chronic medical debility Patient is nonambulatory -Full code IV ceftriaxone. Resume home medications. Neurology consulted. Care was di scussed with the questions answered. Past Medical History Past Medical History: Dementia, Hyperlipidemia Additional Past Medical History / Comment(s): stroke (05/2019) left side paralysis History of Any Multi-Drug Resistant Organisms: None Reported Past Surgical History: No Surgical Hx Reported Past Anesthesia/Blood Transfusion Reactions: No Reported Reaction Past Psychological History: No Psychological Hx Reported Smoking Status: Unknown if ever smoked Past Alcohol Use History: None Reported Past Drug Use History: None Reported - Past Family History Father Family Medical History: Unable to Obtain Medications and Allergies Home Medications Medication Instructions Recorded Confirmed Type Artificial Tears-Hypromellose 1 drops BOTH EYES Q4H PRN 06/06/19 03/01/22 History [Artificial Tear Drops] Atorvastatin [Lipitor] 40 mg PO HS 06/06/19 03/01/22 History Omeprazole 20 mg PO DAILY 06/06/19 03/01/22 History Calcium Carbonate/Vitamin D3 1 tab PO TID@0800,1200,1800 03/01/22 03/01/22 History [Calcium 600-Vit D3 5 Mcg (200 Iu)] Cetirizine HCl [Zyrtec] 10 mg PO DAILY 03/01/22 03/01/22 History Clobetasol Propionate [Clobex .05% 1 applic TOPICAL TUSA 03/01/22 03/01/22 History Shampoo] Ergocalciferol (Vitamin D2) 1,250 mcg PO QMONTHLY 03/01/22 03/01/22 History [Drisdol] Fluocinonide Solution 0.05% 1 applic TOPICAL HS PRN 03/01/22 03/01/22 History HYDROcodone/APAP 7.5-325MG [[place] 1 tab PO Q6H PRN 03/01/22 03/01/22 History 7.5-325] Ketoconazole 2% Shampoo [Nizoral] 1 applic TOPICAL TUSA 03/01/22 03/01/22 History Loteprednol Etabonate [Lotemax] 1 drop BOTH EYES BID 03/01/22 03/01/22 History Metoprolol Tartrate [Lopressor] 25 mg PO BID 03/01/22 03/01/22 History Olopatadine HCl [Patanol 0.1%] 1 drop BOTH EYES Q12H PRN 03/01/22 03/01/22 History Potassium Chloride ER [K-Dur 10] 10 meq PO HS 03/01/22 03/01/22 History Rivaroxaban [Xarelto] 20 mg PO W/SUPPER 03/01/22 03/01/22 History Sennosides/Docusate Sodium 2 tab PO BID 03/01/22 03/01/22 History [Senna-S 8.6-50 mg Tablet] Sertraline [Zoloft] 100 mg PO BID@0800,1600 03/01/22 03/01/22 History Vit C/E/Zn/Coppr/Lutein/Zeaxan 1 cap PO BID 03/01/22 03/01/22 History [Preservision Areds 2 Softgel] bisacodyL [Dulcolax] 10 mg RECTAL DAILY PRN 03/01/22 03/01/22 History clonazePAM [KlonoPIN] 1 mg PO TID@0500,1300,2000 03/01/22 03/01/22 History hydrOXYzine HCL [Hydroxyzine HCl] 10 mg PO HS 03/01/22 03/01/22 History polyethylene glycoL 3350 [Miralax] 17 gm PO DAILY 03/01/22 03/01/22 History Allergies Allergy/AdvReac Type Severity Reaction Status Date / Time Penicillins Allergy Rash/Hives Verified 07/08/19 14:54 Physical Exam Vitals: Vital Signs Temp Pulse Pulse Resp BP BP Pulse Ox 03/02/22 09:47 97.0 F L 66 18 94/50 97 03/02/22 08:43 99 03/02/22 04:00 97.1 F L 62 12 93/57 94 L 03/02/22 01:55 54 L 14 03/02/22 00:00 97.2 F L 54 L 14 140/69 98 03/01/22 23:05 58 L 18 129/75 98 03/01/22 23:00 57 L 118/73 97 03/01/22 22:20 54 L 14 118/73 100 03/01/22 22:10 55 L 23 84/55 98 03/01/22 22:00 61 11 L 99/47 95 03/01/22 21:50 54 L 14 99/47 98 03/01/22 21:40 54 L 13 99/47 99 03/01/22 21:30 53 L 14 99/47 98 03/01/22 21:20 53 L 13 99/47 97 03/01/22 21:10 58 L 13 96/41 96 03/01/22 21:00 60 16 88/51 96 03/01/22 20:50 64 11 L 88/51 97 03/01/22 20:40 60 11 L 113/64 96 03/01/22 20:30 57 L 12 103/79 97 03/01/22 20:06 60 16 111/67 98 03/01/22 20:00 55 L 103/61 97 03/01/22 19:31 97.4 F L 54 L 14 106/64 99 03/01/22 18:50 56 L 18 95/50 95 03/01/22 18:09 63 18 113/65 92 L 03/01/22 18:03 62 18 113/65 94 L Intake and Output 03/01/22 03/02/22 03/02/22 22:59 06:59 14:59 Intake Total 600 Output Total 300 Balance 300 Intake: IV 600 Sodium Chloride 0.9% 1, 600 000 ml @ 100 mls/hr IV . Q10H STA Rx#:[id number] Output: Urine 300 Other: Voiding Method External Catheter Weight 95.254 kg Results CBC & Chem 7: 03/01/22 18:20 03/01/22 18:20 Labs: Abnormal Lab Results - Last 24 Hours (Table) 03/01/22 03/01/22 Range/Units 18:20 20:06 Sodium 136 L (137-145) mmol/L Glucose 112 H (74-99) mg/dL Total Protein 6.1 L (6.3-8.2) g/dL Albumin 3.3 L (3.5-5.0) g/dL Urine Appearance Cloudy H (Clear) Urine Nitrite Positive H (Negative) Ur Leukocyte Esterase Large H (Negative) Urine WBC 77 H (0-5) /hpf Urine WBC Clumps Few H (None) /hpf Urine Bacteria Many H (None) /hpf Hyaline Casts 3 H (0-2) /lpf Urine Mucus Occasional H (None) /hpf
[2022-03-02] MEDS ORDERED: CARBAMIDE PEROXIDE 6.5% DROPS 15 ML BTL BOTH EARS PRN (16:00)
--- NOTE | 2022-03-02 17:46 | P.CNNES ---
History of Present Illness Consult date: 03/02/22 Requesting physician: Jermaine Le Reason for Consult: TIA, slurred speech History of Present Illness: Patient is a 77-year-old right-handed female, who has history of previous CVA with complete left hemiplegia, came to the hospital by ambulance yesterday at 6:02 PM for possible slurred speech. Patient lives in a nursing facility, therefore patient's was present here, does not know details as to the reason she was transferred here. As per EMS flow sheet, when they arrived, patient was responsive only to painful stimuli, supine in bed. Nursing staff mentioned that they found the patient with altered mental status 2-3 hours ago. They noticed a 3 cm diameter area of swelling over the right parietal region of her head. Patient also presented with left-sided facial drooping, left-sided paralysis and slurred speech when the patient was aroused with painful stimuli (which is chronic). Patient's vitals at the scene blood pressure 135/111, pulse rate 80, respirations 16, saturation 92% and blood sugar 102. CBC is normal, PT/PTT normal, sodium 136 potassium 3.9, normal renal functions. Hepatic panel normal. UA shows positive nitrite and large amount of leukocyte Estrace and 77 WBC. Urine cultures pending. Patient has been started on ceftriaxone. CT had revealed encephalomalacia of the right MCA territory from prior injury without evidence for acute intracranial process. Nonspecific white matter changes, likely secondary to chronic small vessel ischemic disease. I personally reviewed CT had come agree with the findings. CTA of head and neck revealed no evidence of dissection of the cervical internal carotid arteries or vertebral arteries or any evidence of significant stenosis at the carotid bifurcations. No evidence of intracranial high-grade stenosis or intracranial aneurysm. Chest x-ray showed chronic changes without acute pulmonary process. No significant change from prior. EKG showed sinus bradycardia with first- degree AV block. Prior to ED report, patient was transferred for stroke code for slurred speech. Patient has chronic left hemiplegia. Patient was not a candidate for TPA because of being on blood thinners. Patient had history of a massive stroke right hemispheric region on 05/20/2019. Patient was transferred to [facility]. Patient was transferred to [facility] on 05/30/2021. Patient also has history of uterine cancer. Home medications in clude omeprazole, Lipitor 40 mg, clonazepam 1 mg 3 times a day, metoprolol, Xarelto 20 mg daily, vitamin D, [place], Zoloft 100 mg, Zyrtec 10 mg, hydroxyzine 10 mg. Review of Systems ROS unobtainable: due to mental status Eyes: bilateral loss of vision (Left homonymous hemianopia), denies discharge, denies pain Ears, nose, mouth and throat: Denies headache, Denies sore throat Cardiovascular: Denies chest pain Respiratory: Denies cough, Denies wheezing Gastrointestinal: Denies abdominal pain, Denies diarrhea, Denies nausea, Denies vomiting Musculoskeletal: Reports low back pain Integumentary: Reports rash, Denies pruritus Neurological: Reports as per HPI Past Medical History Past Medical History: Dementia, Hyperlipidemia Additional Past Medical History / Comment(s): stroke (05/2019) left side paralysis History of Any Multi-Drug Resistant Organisms: None Reported Past Surgical History: No Surgical Hx Reported Past Anesthesia/Blood Transfusion Reactions: No Reported Reaction Past Psychological History: No Psychological Hx Reported Smoking Status: Unknown if ever smoked Past Alcohol Use History: None Reported Past Drug Use History: None Reported - Past Family History Father Family Medical History: Unable to Obtain Medications and Allergies Home Medications Medication Instructions Recorded Confirmed Type Artificial Tears-Hypromellose 1 drops BOTH EYES Q4H PRN 06/06/19 03/01/22 History [Artificial Tear Drops] Atorvastatin [Lipitor] 40 mg PO HS 06/06/19 03/01/22 History Omeprazole 20 mg PO DAILY 06/06/19 03/01/22 History Calcium Carbonate/Vitamin D3 1 tab PO TID@0800,1200,1800 03/01/22 03/01/22 History [Calcium 600-Vit D3 5 Mcg (200 Iu)] Cetirizine HCl [Zyrtec] 10 mg PO DAILY 03/01/22 03/01/22 History Clobetasol Propionate [Clobex .05% 1 applic TOPICAL TUSA 03/01/22 03/01/22 History Shampoo] Ergocalciferol (Vitamin D2) 1,250 mcg PO QMONTHLY 03/01/22 03/01/22 History [Drisdol] Fluocinonide Solution 0.05% 1 applic TOPICAL HS PRN 03/01/22 03/01/22 History HYDROcodone/APAP 7.5-325MG [[place] 1 tab PO Q6H PRN 03/01/22 03/01/22 History 7.5-325] Ketoconazole 2% Shampoo [Nizoral] 1 applic TOPICAL TUSA 03/01/22 03/01/22 History Loteprednol Etabonate [Lotemax] 1 drop BOTH EYES BID 03/01/22 03/01/22 History Metoprolol Tartrate [Lopressor] 25 mg PO BID 03/01/22 03/01/22 History Olopatadine HCl [Patanol 0.1%] 1 drop BOTH EYES Q12H PRN 03/01/22 03/01/22 History Potassium Chloride ER [K-Dur 10] 10 meq PO HS 03/01/22 03/01/22 History Rivaroxaban [Xarelto] 20 mg PO W/SUPPER 03/01/22 03/01/22 History Sennosides/Docusate Sodium 2 tab PO BID 03/01/22 03/01/22 History [Senna-S 8.6-50 mg Tablet] Sertraline [Zoloft] 100 mg PO BID@0800,1600 03/01/22 03/01/22 History Vit C/E/Zn/Coppr/Lutein/Zeaxan 1 cap PO BID 03/01/22 03/01/22 History [Preservision Areds 2 Softgel] bisacodyL [Dulcolax] 10 mg RECTAL DAILY PRN 03/01/22 03/01/22 History clonazePAM [KlonoPIN] 1 mg PO TID@0500,1300,2000 03/01/22 03/01/22 History hydrOXYzine HCL [Hydroxyzine HCl] 10 mg PO HS 03/01/22 03/01/22 History polyethylene glycoL 3350 [Miralax] 17 gm PO DAILY 03/01/22 03/01/22 History Allergies Allergy/AdvReac Type Severity Reaction Status Date / Time Penicillins Allergy Rash/Hives Verified 07/08/19 14:54 Physical Examination - Vital Signs Vital Signs: Vital Signs Temp Pulse Pulse Pulse Resp BP BP 03/02/22 11:19 70 16 111/67 03/02/22 10:01 64 20 03/02/22 09:47 97.0 F L 66 18 94/50 03/02/22 08:43 03/02/22 04:00 97.1 F L 62 12 93/57 03/02/22 01:55 54 L 14 03/02/22 00:00 97.2 F L 54 L 14 140/69 03/01/22 23:05 58 L 18 129/75 03/01/22 23:00 57 L 118/73 03/01/22 22:20 54 L 14 118/73 03/01/22 22:10 55 L 23 84/55 03/01/22 22:00 61 11 L 99/47 03/01/22 21:50 54 L 14 99/47 03/01/22 21:40 54 L 13 99/47 03/01/22 21:30 53 L 14 99/47 03/01/22 21:20 53 L 13 99/47 03/01/22 21:10 58 L 13 96/41 03/01/22 21:00 60 16 88/51 03/01/22 20:50 64 11 L 88/51 03/01/22 20:40 60 11 L 113/64 03/01/22 20:30 57 L 12 103/79 03/01/22 20:06 60 16 111/67 03/01/22 20:00 55 L 103/61 03/01/22 19:31 97.4 F L 54 L 14 106/64 03/01/22 18:50 56 L 18 95/50 03/01/22 18:09 63 18 113/65 03/01/22 18:03 62 18 113/65 Pulse Ox 03/02/22 11:19 98 03/02/22 10:01 03/02/22 09:47 97 03/02/22 08:43 99 03/02/22 04:00 94 L 03/02/22 01:55 03/02/22 00:00 98 03/01/22 23:05 98 03/01/22 23:00 97 03/01/22 22:20 100 03/01/22 22:10 98 03/01/22 22:00 95 03/01/22 21:50 98 03/01/22 21:40 99 03/01/22 21:30 98 03/01/22 21:20 97 03/01/22 21:10 96 03/01/22 21:00 96 03/01/22 20:50 97 03/01/22 20:40 96 03/01/22 20:30 97 03/01/22 20:06 98 03/01/22 20:00 97 03/01/22 19:31 99 03/01/22 18:50 95 03/01/22 18:09 92 L 03/01/22 18:03 94 L Intake and Output 03/01/22 03/02/22 03/02/22 22:59 06:59 14:59 Intake Total 600 Output Total 300 Balance 300 Intake: IV 600 Sodium Chloride 0.9% 1, 600 000 ml @ 100 mls/hr IV . Q10H STA Rx#:[id number] Output: Urine 300 Other: Voiding Method External Catheter External Catheter Weight 95.254 kg Patient is an elderly female, moderately obese, appears somewhat uncomfortable, frequently turning on the left, because of left leg spasms. Patient is alert awake. Patient knows her date of 1945, but states she forgot her age. She states it is not March 2022. Then she said was April. She knows that she lives in [facility]. Speech and language functions are normal. Patient can name and repeat very well. No aphasia or dysarthria. Attention, concentration and fund of knowledge is limited. On cranial nerve examination, pupils are equal, round and reacting to light, visual acosta reveal complete left homonymous hemianopia, which is chronic. Extraocular muscles are intact with no nystagmus. Patient has left facial weakness. Her tongue protrudes to the midline. Palatal elevation and sensation normal, hearing is decreased and shoulder shrug decreased on the left, facial sensation decreased on the left. On muscle strength testing, patient is completely spastic plegic in the left upper extremity. Left lower extremity is spastic, plegic, with spasms.. Deep tendon reflexes are (right/left) biceps 1+/3, brachioradialis 1+/3, knee 3/3+ and plantar is downgoing on the right, up on the left. Sensory to touch is severely decreased in the left arm and left leg. Cerebellar function showed no ataxia for [id number] testing on the right, cannot perform on the left. Tone is increased in the left side of the body. Gait deferred.. On general examination, there is no carotid bruit or murmur, S1-S2 audible. Chest is clear on consultation. Abdomen is soft nontender. No organomegaly, bowel sounds present. Mild peripheral edema. Results - Laboratory Findings CBC and BMP: 03/01/22 18:20 03/01/22 18:20 Abnormal Lab Findings: Abnormal Labs 03/01/22 03/01/22 18:20 20:06 Sodium 136 L Glucose 112 H Total Protein 6.1 L Albumin 3.3 L Urine Appearance Cloudy H Urine Nitrite Positive H Ur Leukocyte Esterase Large H Urine WBC 77 H Urine WBC Clumps Few H Urine Bacteria Many H Hyaline Casts 3 H Urine Mucus Occasional H Assessment and Plan Assessment: * Altered mental status, probably due to metabolic encephalopathy.. * Possible episode of unresponsiveness, rule out seizure. 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 * Acute UTI * Atrial fibrillation, on anticoagulation with Xarelto * Vascular dementia * Hyperlipidemia * Obesity Plan: * EEG to rule out epileptiform activity * Continue Xarelto for stroke prevention related to atrial fibrillation * Treatment of UTI as per IM. * Neurology will follow. Thank you for the consult.
[2022-03-02] MEDS: RIVAROXABAN 20 MG TAB PO SCH (17:57)
[2022-03-02] MEDS: HYDROcodone/APAP 7.5-325MG 1 EACH TAB PO PRN (18:35)
[2022-03-02] MEDS: hydrOXYzine HCL 10 MG TAB PO SCH (21:31)
[2022-03-02] MEDS: POTASSIUM CHLORIDE ER 10 MEQ TAB.ER.PRT PO SCH (21:31)
[2022-03-02] MEDS: ATORVASTATIN 40 MG TAB PO SCH (21:31)
[2022-03-03] MEDS: HYDROcodone/APAP 7.5-325MG 1 EACH TAB PO PRN (01:28)
[2022-03-03] MEDS: SERTRALINE 100 MG TAB PO SCH ×2 (09:30→21:19)
[2022-03-03] MEDS: PANTOPRAZOLE 40 MG TABLET PO SCH (09:30)
[2022-03-03] MEDS: CALCIUM CARB-VIT D 500 MG-5 MCG TAB PO SCH ×3 (09:30→21:19)
[2022-03-03] MEDS: METOPROLOL TARTRATE 25 MG TAB PO SCH ×2 (09:30→21:20)
[2022-03-03] MEDS: clonazePAM 1 MG TAB PO SCH ×3 (09:30→21:19)
[2022-03-03] MEDS: LORATADINE 10 MG TAB PO SCH (09:30)
[2022-03-03] MEDS: polyethylene glycoL 3350 17 GM POWD.PACK PO SCH (09:31)
[2022-03-03] MEDS: SENNOSIDES-DOCUSATE SODIUM 1 EACH TAB PO SCH ×2 (09:31→21:19)
[2022-03-03] MEDS: VIT A,C & E-LUTEIN-MINERALS 1 EACH TAB PO SCH ×2 (09:31→21:20)
[2022-03-03] MEDS: prednisoLONE ACETATE 1% OPHTH DROPS 5 ML BTL BOTH EYES SCH ×2 (09:32→21:20)
[2022-03-03] MEDS: RIVAROXABAN 20 MG TAB PO SCH (16:10)
--- NOTE | 2022-03-03 17:09 | P.PN ---
Progress Note - Text Progress Note Date: 03/03/22 Chief Complaint: Altered mental status This is a pleasant 77-year-old patient being followed by Dr. Garcia at [facility]. EMS was called out. But the report. Nursing staff reported that they found the patient with altered mental status about 2 or 3 h ours prior to that arriving. Had a baseline patient is able to communicate. Has some dementia. Has left-sided weakness. Per who gives the history patient does need help with feeding. Was able to use the right arm. Does have a diaper. Her blood pressures found to be low. This initial concern of a stroke as patient was moved to the ER. By the ER physician no new findings. Patient felt to have a UTI. According to patient doing better this morning. Able to answer some simple questions. No new weakness. feels patient otherwise at baseline. Neurologically. Admitted with acute metabolic encephalopathy/delirium from UTI with cystitis. Started on IV ceftriaxone. 03/03/2022: Patient more awake. Communicating simple answers.. at the bedside. Feels patient nearly back to baseline. Urine culture pending. Gram- negative bacilli. EEG ordered by neurology to rule out seizures Active Medications Acetaminophen (Acetaminophen Tab 325 Mg Tab) 650 mg PO Q6HR PRN PRN Reason: Mild Pain or Fever > 100.5 Last Admin: 03/02/22 15:31 Dose: 650 mg Hydrocodone Bitart/Acetaminophen (Hydrocodone/Apap 7.5-325mg 1 Each Tab) 1 each PO Q6H PRN PRN Reason: Pain Last Admin: 03/03/22 01:28 Dose: 1 each Artificial Tears (Artificial Tears-Hypromellose Drops 15 Ml Btl) 1 drops BOTH EYES Q4H PRN PRN Reason: Dry Eye(s) Atorvastatin Calcium (Atorvastatin 40 Mg Tab) 40 mg PO HS AV Last Admin: 03/02/22 21:31 Dose: 40 mg Bisacodyl (Bisacodyl 10 Mg Supp) 10 mg RECTAL DAILY PRN PRN Reason: Constipation Calcium Carbonate (Calcium Carb-Vit D 500 Mg-5 Mcg Tab) 1 each PO TID AV Last Admin: 03/03/22 16:10 Dose: 1 each Carbamide Perox/Anhydrous Glycerin (Carbamide Peroxide 6.5% Drops 15 Ml Btl) 8 drops BOTH EARS BID PRN PRN Reason: EAR WAX REMOVAL Clonazepam (Clonazepam 1 Mg Tab) 1 mg PO TID [facility] Last Admin: 03/03/22 16:10 Dose: 1 mg Ergocalciferol (Ergocalciferol 1,250 Mcg (50,000 Iu) Capsule) 1,250 mcg PO QMONTHLY [facility] Hydroxyzine HCl (Hydroxyzine Hcl 10 Mg Tab) 10 mg PO HS [facility] Last Admin: 03/02/22 21:31 Dose: 10 mg Ceftriaxone Sodium 1 gm/ (Sodium Chloride) 50 mls @ 100 mls/hr IVPB Q24H [facility]; Protocol Last Admin: 03/02/22 21:32 Dose: 100 mls/hr Ketoconazole (Ketoconazole 2% Shampoo 1 Applic/Ml) 1 applic TOPICAL TUSA [facility] Last Admin: 03/02/22 10:01 Dose: Not Given Ketotifen Fumarate (Ketotifen 0.025% Ophth Drops 5 Ml Btl) 1 drops BOTH EYES Q12H PRN PRN Reason: RED/IRRITATED/WATERY EYES Loratadine (Loratadine 10 Mg Tab) 10 mg PO DAILY [facility] Last Admin: 03/03/22 09:30 Dose: 10 mg Metoprolol Tartrate (Metoprolol Tartrate 25 Mg Tab) 25 mg PO BID [facility] Last Admin: 03/03/22 09:30 Dose: 25 mg Multivitamins/Minerals (Vit A,C & T-Yxhqeq-Qkwjtjdh 1 Each Tab) 1 each PO BID [facility] Last Admin: 03/03/22 09:31 Dose: 1 each Naloxone HCl (Naloxone 0.4 Mg/Ml 1 Ml Vial) 0.2 mg IV Q2M PRN PRN Reason: Opioid Reversal Non-Formulary Medication (Clobetasol Propionate [Clobex .05% Shampoo]) 1 applic TOPICAL TUSA [facility] Last Admin: 03/02/22 10:01 Dose: Not Given Non-Formulary Medication (Fluocinonide Solution 0.05%) 1 applic TOPICAL HS PRN PRN Reason: SEBORRHEIC DERMATITIS Ondansetron HCl (Ondansetron 4 Mg/2 Ml Vial) 4 mg IVP Q8HR PRN PRN Reason: Nausea And Vomiting Pantoprazole Sodium (Pantoprazole 40 Mg Tablet) 40 mg PO AC-BRKFST [facility] Last Admin: 03/03/22 09:30 Dose: 40 mg Polyethylene Glycol (Polyethylene Glycol 3350 17 Gm Powd.Pack) 17 gm PO DAILY [facility] Last Admin: 03/03/22 09:31 Dose: 17 gm Potassium Chloride (Potassium Chloride Er 10 Meq Tab.Er.Prt) 10 meq PO HS [facility] Last Admin: 03/02/22 21:31 Dose: 10 meq Prednisolone Acetate (Prednisolone Acetate 1% Ophth Drops 5 Ml Btl) 1 drops BOTH EYES BID [facility] Last Admin: 03/03/22 09:32 Dose: 1 drops Rivaroxaban (Rivaroxaban 20 Mg Tab) 20 mg PO W/SUPPER [facility]; Protocol Last Admin: 03/03/22 16:10 Dose: 20 mg Senna/Docusate Sodium (Sennosides-Docusate Sodium 1 Each Tab) 2 each PO BID [facility] Last Admin: 03/03/22 09:31 Dose: 2 each Sertraline HCl (Sertraline 100 Mg Tab) 100 mg PO BID [facility] Last Admin: 03/03/22 09:30 Dose: 100 mg Past medical history to include: Dementia, stroke with left-sided paralysis [May 2019], hyperlipidemia, uterine cancer, A. fib, pulmonary embolism [June 2019] Social history: Smoking no alcohol. . Long-term resident at [facility] Family history: Patient cannot tell Physical examination: VITAL SIGNS: 98.1, 74, 18, 1/76, 96% room air GENERAL: Reclining in bed, awake, talking EYES: Pupils equal. Conjunctiva normal. HEENT: External appearance of nose and ears normal, oral cavity grossly normal. NECK: JVD not raised; masses not palpable. HEART: First and second heart sounds are normal; no edema. LUNGS: Respiratory rate normal; distant breath sounds. ABDOMEN: Soft, nontender, liver spleen not palpable, no masses palpable. PSYCH: Awake answering simple questions MUSCULOSKELETAL:No Clubbing/cyanosis;muscles-grossly intact, OA NEUROLOGICAL: left leg 1/5 able to wiggle toes, left thumb 0/5. INVESTIGATIONS, reviewed in the clinical context: WBC 9.8 hemoglobin 13.6 platelets 251 potassium 3.9 creatinine 0.79 UA: Nitrite positive leukoesterase positive WBC 27 WBC clumps few EKG tracing personally reviewed by me-sinus rhythm. Rate 57. Nonspecific T- wave changes. CT brain: Encephalomalacia of the right MCA. Without acute intracranial process. Nonspecific white matter changes. CT angiography: Unremarkable Chest x-ray film personally reviewed by me-[portable]: Possible chronic changes Assessment and plan: - acute metabolic encephalopathy from UTI. no focal findings. : Improving EEG ordered by neurology to rule out seizures -Acute UTI with cystitis, gram-negative bacilli IV ceftriaxone. -Left hemiparesis, from prior right MCA territory stroke in May 2019 -Multi-infarct dementia At baseline patient answer simple questions -Paroxysmal atrial fibrillation with a prior history of A. fib. Currently in sinus rhythm Lopressor. Xarelto -GERD Omeprazole -Chronic PE in June 2019 Xarelto -Chronic medical debility Patient is nonambulatory -Full code IV ceftriaxone. Pending EEG. Discussed with . Continue current medications.
[2022-03-03] MEDS: ATORVASTATIN 40 MG TAB PO SCH (21:19)
[2022-03-03] MEDS: hydrOXYzine HCL 10 MG TAB PO SCH (21:19)
[2022-03-03] MEDS: POTASSIUM CHLORIDE ER 10 MEQ TAB.ER.PRT PO SCH (21:20)
--- NOTE | 2022-03-03 22:21 | EEG ---
ELECTROENCEPHALOGRAM REPORT PREAMBLE: This is a 77-year-old female with episode of unresponsiveness. The patient has history of a previous stroke. This study is performed to evaluate for any epileptiform activity. EEG FINDINGS: This is a 21-channel digital EEG recorded with video component, utilizing 10/20 international system with referential and bipolar montages. Background consists of well-developed, moderately well regulated, predominantly 6 to 7 hertz theta activity seen in bihemispheric region. Background does not seem to be clearly reactive to eye opening and closing. Photic driving response was not seen. EKG artifact was seen over the left temporal region. Different stages of sleep were not seen. No definitive focal or generalized epileptiform activity was seen. EKG channel showed no obvious arrhythmia. IMPRESSION: This is an abnormal EEG due to background slowing of jmrv-uu-cjpbzntz degree. This is suggestive of generalized cerebral dysfunction as can be seen with toxic metabolic encephalopathy or related to diffuse structural brain abnormality. Clinical correlation is recommended. No epileptiform activity was seen. MMODL / IJN: [id number] /
[2022-03-04] MEDS: prednisoLONE ACETATE 1% OPHTH DROPS 5 ML BTL BOTH EYES SCH ×2 (08:27→19:57)
[2022-03-04] MEDS: polyethylene glycoL 3350 17 GM POWD.PACK PO SCH (08:27)
[2022-03-04] MEDS: CALCIUM CARB-VIT D 500 MG-5 MCG TAB PO SCH ×3 (08:28→22:12)
[2022-03-04] MEDS: METOPROLOL TARTRATE 25 MG TAB PO SCH ×2 (08:28→20:02)
[2022-03-04] MEDS: PANTOPRAZOLE 40 MG TABLET PO SCH (08:28)
[2022-03-04] MEDS: clonazePAM 1 MG TAB PO SCH ×3 (08:28→22:12)
[2022-03-04] MEDS: SERTRALINE 100 MG TAB PO SCH ×2 (08:28→20:01)
[2022-03-04] MEDS: SENNOSIDES-DOCUSATE SODIUM 1 EACH TAB PO SCH ×2 (08:28→20:01)
[2022-03-04] MEDS: LORATADINE 10 MG TAB PO SCH (08:29)
[2022-03-04] MEDS: VIT A,C & E-LUTEIN-MINERALS 1 EACH TAB PO SCH ×2 (08:32→20:01)
[2022-03-04] MEDS ORDERED: ERGOCALCIFEROL 1,250 MCG (50,000 IU) CAPSULE PO SCH (09:00)
--- NOTE | 2022-03-04 10:52 | P.PN ---
Subjective Progress Note Date: 03/03/22 Patient was seen for a follow-up. Patient is laying comfortably in the bed. Offers no complaints. Patient continues to be left hemiplegic. Objective - Vital Signs Vital signs: Vital Signs Temp 98.1 F 03/03/22 13:00 Pulse 74 03/03/22 13:00 Resp 18 03/03/22 13:00 BP 108/76 03/03/22 13:00 Pulse Ox 96 03/03/22 13:00 FiO2 Intake & Output 03/02/22 03/03/22 03/03/22 18:59 06:59 18:59 Intake Total 360 Output Total 500 400 500 Balance -500 -400 -140 Weight 95.254 kg 120 kg Intake: Oral 360 Output: Urine 500 400 500 Other: Voiding Method External Catheter External Catheter External Catheter # Voids 2 - Exam Patient is alert and awake. Examination remains unchanged. - Labs CBC & Chem 7: 03/01/22 18:20 03/01/22 18:20 Labs: Microbiology - Last 24 Hours (Table) 03/01/22 20:06 Urine Culture - Preliminary Urine,Voided Gram Neg Bacilli Assessment and Plan Assessment: * Altered mental status, probably due to metabolic encephalopathy, due to acute UTI. * Possible episode of unresponsiveness, rule out seizure. EEG showed no epileptiform activity. 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 * Acute gram-negative bacilli UTI * Atrial fibrillation, on anticoagulation with Xarelto * Vascular dementia * Hyperlipidemia * Obesity Plan: * EEG performed revealed abnormal EEG due to background slowing of mild to moderate degree. This is suggestive of generalized cerebral dysfunction as can be seen with toxic metabolic encephalopathy or related to diffuse structural brain abnormality. Clinical correlation is recommended. No epileptiform activity was seen. No indication for antiepileptic medication. * Continue Xarelto for stroke prevention related to atrial fibrillation * Urine had grown > 100,000 gram-negative bacilli. Final ID pending. Treatment of UTI as per IM. * Neurologically, no other workup indicated.
--- NOTE | 2022-03-04 14:49 | P.PN ---
Progress Note - Text Progress Note Date: 03/04/22 Chief Complaint: Altered mental status This is a pleasant 77-year-old patient being followed by Dr. Garcia at [facility]. EMS was called out. But the report. Nursing staff reported that they found the patient with altered mental status about 2 or 3 h ours prior to that arriving. Had a baseline patient is able to communicate. Has some dementia. Has left-sided weakness. Per who gives the history patient does need help with feeding. Was able to use the right arm. Does have a diaper. Her blood pressures found to be low. This initial concern of a stroke as patient was moved to the ER. By the ER physician no new findings. Patient felt to have a UTI. According to patient doing better this morning. Able to answer some simple questions. No new weakness. feels patient otherwise at baseline. Neurologically. Admitted with acute metabolic encephalopathy/delirium from UTI with cystitis. Started on IV ceftriaxone. 03/03/2022: Patient more awake. Communicating simple answers.. at the bedside. Feels patient nearly back to baseline. Urine culture pending. Gram- negative bacilli. EEG ordered by neurology to rule out seizures 03/04/2022: Patient seen this morning. Had 100% breakfast. Comfortable. EEG negative for epileptiform activity. Urine culture pending. Active Medications Acetaminophen (Acetaminophen Tab 325 Mg Tab) 650 mg PO Q6HR PRN PRN Reason: Mild Pain or Fever > 100.5 Last Admin: 03/02/22 15:31 Dose: 650 mg Hydrocodone Bitart/Acetaminophen (Hydrocodone/Apap 7.5-325mg 1 Each Tab) 1 each PO Q6H PRN PRN Reason: Pain Last Admin: 03/03/22 01:28 Dose: 1 each Artificial Tears (Artificial Tears-Hypromellose Drops 15 Ml Btl) 1 drops BOTH EYES Q4H PRN PRN Reason: Dry Eye(s) Atorvastatin Calcium (Atorvastatin 40 Mg Tab) 40 mg PO HS AV Last Admin: 03/03/22 21:19 Dose: 40 mg Bisacodyl (Bisacodyl 10 Mg Supp) 10 mg RECTAL DAILY PRN PRN Reason: Constipation Calcium Carbonate (Calcium Carb-Vit D 500 Mg-5 Mcg Tab) 1 each PO TID AV Last Admin: 12/01/22 08:28 Dose: 1 each Carbamide Perox/Anhydrous Glycerin (Carbamide Peroxide 6.5% Drops 15 Ml Btl) 8 drops BOTH EARS BID PRN PRN Reason: EAR WAX REMOVAL Clonazepam (Clonazepam 1 Mg Tab) 1 mg PO TID [facility] Last Admin: 03/04/22 08:28 Dose: 1 mg Ergocalciferol (Ergocalciferol 1,250 Mcg (50,000 Iu) Capsule) 1,250 mcg PO QMONTHLY [facility] Last Admin: 03/04/22 08:37 Dose: 1,250 mcg Hydroxyzine HCl (Hydroxyzine Hcl 10 Mg Tab) 10 mg PO HS [facility] Last Admin: 03/03/22 21:19 Dose: 10 mg Ceftriaxone Sodium 1 gm/ (Sodium Chloride) 50 mls @ 100 mls/hr IVPB Q24H [facility]; Protocol Last Admin: 03/03/22 21:19 Dose: 100 mls/hr Ketoconazole (Ketoconazole 2% Shampoo 1 Applic/Ml) 1 applic TOPICAL TUSA [facility] Last Admin: 03/02/22 10:01 Dose: Not Given Ketotifen Fumarate (Ketotifen 0.025% Ophth Drops 5 Ml Btl) 1 drops BOTH EYES Q12H PRN PRN Reason: RED/IRRITATED/WATERY EYES Loratadine (Loratadine 10 Mg Tab) 10 mg PO DAILY [facility] Last Admin: 03/04/22 08:29 Dose: 10 mg Metoprolol Tartrate (Metoprolol Tartrate 25 Mg Tab) 25 mg PO BID [facility] Last Admin: 03/04/22 08:28 Dose: 25 mg Multivitamins/Minerals (Vit A,C & S-Xmwjpm-Rhchpydl 1 Each Tab) 1 each PO BID [facility] Last Admin: 03/04/22 08:32 Dose: 1 each Naloxone HCl (Naloxone 0.4 Mg/Ml 1 Ml Vial) 0.2 mg IV Q2M PRN PRN Reason: Opioid Reversal Non-Formulary Medication (Clobetasol Propionate [Clobex .05% Shampoo]) 1 applic TOPICAL TUSA [facility] Last Admin: 03/02/22 10:01 Dose: Not Given Non-Formulary Medication (Fluocinonide Solution 0.05%) 1 applic TOPICAL HS PRN PRN Reason: SEBORRHEIC DERMATITIS Ondansetron HCl (Ondansetron 4 Mg/2 Ml Vial) 4 mg IVP Q8HR PRN PRN Reason: Nausea And Vomiting Pantoprazole Sodium (Pantoprazole 40 Mg Tablet) 40 mg PO AC-BRKFST [facility] Last Admin: 03/04/22 08:28 Dose: 40 mg Polyethylene Glycol (Polyethylene Glycol 3350 17 Gm Powd.Pack) 17 gm PO DAILY [facility] Last Admin: 03/04/22 08:27 Dose: 17 gm Potassium Chloride (Potassium Chloride Er 10 Meq Tab.Er.Prt) 10 meq PO HS [facility] Last Admin: 03/03/22 21:20 Dose: 10 meq Prednisolone Acetate (Prednisolone Acetate 1% Ophth Drops 5 Ml Btl) 1 drops BOTH EYES BID [facility] Last Admin: 03/04/22 08:27 Dose: 1 drops Rivaroxaban (Rivaroxaban 20 Mg Tab) 20 mg PO W/SUPPER [facility]; Protocol Last Admin: 03/03/22 16:10 Dose: 20 mg Senna/Docusate Sodium (Sennosides-Docusate Sodium 1 Each Tab) 2 each PO BID [facility] Last Admin: 03/04/22 08:28 Dose: 2 each Sertraline HCl (Sertraline 100 Mg Tab) 100 mg PO BID [facility] Last Admin: 03/04/22 08:28 Dose: 100 mg Past medical history to include: Dementia, stroke with left-sided paralysis [May 2019], hyperlipidemia, uterine cancer, A. fib, pulmonary embolism [June 2019] Social history: Smoking no alcohol. . Long-term resident at [facility] Family history: Patient cannot tell Physical examination: VITAL SIGNS: 97.4, 64, 16, 98/60, 93% room air GENERAL: Reclining in bed, comfortable EYES: Pupils equal. Conjunctiva normal. HEENT: External appearance of nose and ears normal, oral cavity grossly normal. NECK: JVD not raised; masses not palpable. HEART: First and second heart sounds are normal; no edema. LUNGS: Respiratory rate normal; distant breath sounds. ABDOMEN: Soft, nontender, liver spleen not palpable, no masses palpable. PSYCH: Awake answering simple questions MUSCULOSKELETAL:No Clubbing/cyanosis;muscles-grossly intact, OA NEUROLOGICAL: left leg 1/5 able to wiggle toes, left thumb 0/5. INVESTIGATIONS, reviewed in the clinical context: WBC 9.8 hemoglobin 13.6 platelets 251 potassium 3.9 creatinine 0.79 UA: Nitrite positive leukoesterase positive WBC 27 WBC clumps few EKG tracing personally reviewed by me-sinus rhythm. Rate 57. Nonspecific T- wave changes. CT brain: Encephalomalacia of the right MCA. Without acute intracranial process. Nonspecific white matter changes. CT angiography: Unremarkable Chest x-ray film personally reviewed by me-[portable]: Possible chronic changes Assessment and plan: - acute metabolic encephalopathy from UTI. no focal findings. : Better EEG negative for epilepsy -Acute UTI with cystitis, gram-negative bacilli IV ceftriaxone. -Left hemiparesis, from prior right MCA territory stroke in May 2019 -Multi-infarct dementia At baseline patient answer simple questions -Paroxysmal atrial fibrillation with a prior history of A. fib. Currently in sinus rhythm Lopressor. Xarelto -GERD Omeprazole -Chronic PE in June 2019 Xarelto -Chronic medical debility Patient is nonambulatory -Full code IV ceftriaxone. Continue current medications. Hopefully DC to ECF tomorrow.
[2022-03-04] MEDS: RIVAROXABAN 20 MG TAB PO SCH (18:34)
[2022-03-04] MEDS: POTASSIUM CHLORIDE ER 10 MEQ TAB.ER.PRT PO SCH (20:01)
[2022-03-04] MEDS: ATORVASTATIN 40 MG TAB PO SCH (20:01)
[2022-03-04] MEDS: hydrOXYzine HCL 10 MG TAB PO SCH (20:02)
[2022-03-05] MEDS: CALCIUM CARB-VIT D 500 MG-5 MCG TAB PO SCH (08:35)
[2022-03-05] MEDS: polyethylene glycoL 3350 17 GM POWD.PACK PO SCH (08:35)
[2022-03-05] MEDS: METOPROLOL TARTRATE 25 MG TAB PO SCH (08:35)
[2022-03-05] MEDS: SENNOSIDES-DOCUSATE SODIUM 1 EACH TAB PO SCH (08:35)
[2022-03-05] MEDS: clonazePAM 1 MG TAB PO SCH (08:35)
[2022-03-05] MEDS: LORATADINE 10 MG TAB PO SCH (08:35)
[2022-03-05] MEDS: prednisoLONE ACETATE 1% OPHTH DROPS 5 ML BTL BOTH EYES SCH (08:35)
[2022-03-05] MEDS: VIT A,C & E-LUTEIN-MINERALS 1 EACH TAB PO SCH (08:35)
[2022-03-05] MEDS: SERTRALINE 100 MG TAB PO SCH (08:35)
[2022-03-05] MEDS: PANTOPRAZOLE 40 MG TABLET PO SCH (08:35)
[2022-03-05] MEDS: CEPHALEXIN 500 MG CAP PO SCH ×2 (12:41→14:11)
--- NOTE | 2022-03-05 14:06 | P.DS ---
Providers Date of admission: 03/01/22 20:53 Expected date of discharge: 03/05/22 Attending physician: Jermaine Le Consults: 03/02/22 10:22 Consult Physician Stat Consulting Provider: Feroz Stephen Consult Reason/Comments: TIA, slurred speech Do you want consulting provider notified?: Yes Primary care physician: Rusty Garcia [facility] Course: Chief Complaint: Altered mental status This is a pleasant 77-year-old patient being followed by Dr. Garcia at [facility]. EMS was called out. But the report. Nursing staff reported that they found the patient with altered mental status about 2 or 3 hours prior to that arriving. Had a baseline patient is able to communicate. Has some dementia. Has left-sided weakness. Per who gives the history patient does need help with feeding. Was able to use the right arm. Does have a diaper. Her blood pressures found to be low. This initial concern of a stroke as patient was moved to the ER. By the ER physician no new findings. Patient felt to have a UTI. According to patient doing better this morning. Able to answer some simple questions. No new weakness. feels patient otherwise at baseline. Neurologically. Admitted with acute metabolic encephalopathy/delirium from UTI with cystitis. Started on IV ceftriaxone. 03/03/2022: Patient more awake. Communicating simple answers.. at the bedside. Feels patient nearly back to baseline. Urine culture pending. Gram- negative bacilli. EEG ordered by neurology to rule out seizures 03/04/2022: Patient seen this morning. Had 100% breakfast. Comfortable. EEG negative for epileptiform activity. Urine culture pending. 03/05/2022: Comfortable. Oral intake good. Urine culture positive for Klebsiella pneumonia. We'll complete 3 more days of Keflex. Receiving her first dose here. Past medical history to include: Dementia, stroke with left-sided paralysis [May 2019], hyperlipidemia, uterine cancer, A. fib, pulmonary embolism [June 2019] Social history: Smoking no alcohol. . Long-term resident at [facility] Family history: Patient cannot tell Physical examination: VITAL SIGNS: 97.7, 66, 16, 142/84, 93% room air GENERAL: Reclining in bed, comfortable EYES: Pupils equal. Conjunctiva normal. HEENT: External appearance of nose and ears normal, oral cavity grossly normal. NECK: JVD not raised; masses not palpable. HEART: First and second heart sounds are normal; no edema. LUNGS: Respiratory rate normal; distant breath sounds. ABDOMEN: Soft, nontender, liver spleen not palpable, no masses palpable. PSYCH: Awake answering simple questions MUSCULOSKELETAL:No Clubbing/cyanosis;muscles-grossly intact, OA NEUROLOGICAL: left leg 1/5 able to wiggle toes, left thumb 0/5. INVESTIGATIONS, reviewed in the clinical context: Urine culture: No Bony WBC 9.8 hemoglobin 13.6 platelets 251 potassium 3.9 creatinine 0.79 UA: Nitrite positive leukoesterase positive WBC 27 WBC clumps few EKG tracing personally reviewed by me-sinus rhythm. Rate 57. Nonspecific T- wave changes. CT brain: Encephalomalacia of the right MCA. Without acute intracranial process. Nonspecific white matter changes. CT angiography: Unremarkable Chest x-ray film personally reviewed by me-[portable]: Possible chronic changes Assessment and plan: - acute metabolic encephalopathy from UTI. no focal findings. : Better EEG negative for epilepsy -Acute UTI with cystitis, Klebsiella pneumoniae IV ceftriaxone.. Complete 3 days of Keflex 500 mg 4 times a day -Left hemiparesis, from prior right MCA territory stroke in May 2019 -Multi-infarct dementia At baseline patient answer simple questions -Paroxysmal atrial fibrillation with a prior history of A. fib. Currently in sinus rhythm Lopressor. Xarelto -GERD Omeprazole -Chronic PE in June 2019 Xarelto -Chronic medical debility Patient is nonambulatory -Full code Disposition: ECF at [facility] on Plan - Discharge Summary New Discharge Prescriptions: New Cephalexin [Keflex] 500 mg PO Q6HR 1 Days #12 cap Continue Artificial Tears-Hypromellose [Artificial Tear Drops] 1 drops BOTH EYES Q4H PRN PRN Reason: Dry Eye(S) Omeprazole 20 mg PO DAILY Atorvastatin [Lipitor] 40 mg PO HS Fluocinonide Solution 0.05% 1 applic TOPICAL HS PRN PRN Reason: SEVVORHEIC DERMATITIS bisacodyL [Dulcolax] 10 mg RECTAL DAILY PRN PRN Reason: Constipation Vit C/E/Zn/Coppr/Lutein/Zeaxan [Preservision Areds 2 Softgel] 1 cap PO BID Metoprolol Tartrate [Lopressor] 25 mg PO BID Loteprednol Etabonate [Lotemax] 1 drop BOTH EYES BID Rivaroxaban [Xarelto] 20 mg PO W/SUPPER Ergocalciferol (Vitamin D2) [Drisdol (50,000 Iu)] 1,250 mcg PO QMONTHLY HYDROcodone/APAP 7.5-325MG [[place] 7.5-325] 1 tab PO Q6H PRN #12 tab PRN Reason: Pain Calcium Carbonate/Vitamin D3 [Calcium 600-Vit D3 5 Mcg (200 Iu)] 1 tab PO TID@0800,1200,1800 Sertraline [Zoloft] 100 mg PO BID@0800,1600 Sennosides/Docusate Sodium [Senna-S 8.6-50 mg Tablet] 2 tab PO BID Potassium Chloride ER [K-Dur 10] 10 meq PO HS Cetirizine HCl [Zyrtec] 10 mg PO DAILY Ketoconazole 2% Shampoo [Nizoral] 1 applic TOPICAL TUSA hydrOXYzine HCL 10 mg PO HS polyethylene glycoL 3350 [Miralax] 17 gm PO DAILY Clobetasol Propionate [Clobex .05% Shampoo] 1 applic TOPICAL [facility]USA Olopatadine HCl [Patanol 0.1%] 1 drop BOTH EYES Q12H PRN PRN Reason: RED/IRRITATED/WATERY EYES clonazePAM [KlonoPIN] 1 mg PO TID@0500,1300,2000 #9 tab Discharge Medication List Artificial Tears-Hypromellose [Artificial Tear Drops] 1 drops BOTH EYES Q4H PRN 06/06/19 [History] Atorvastatin [Lipitor] 40 mg PO HS 06/06/19 [History] Omeprazole 20 mg PO DAILY 06/06/19 [History] Calcium Carbonate/Vitamin D3 [Calcium 600-Vit D3 5 Mcg (200 Iu)] 1 tab PO TID@0800,1200,1800 03/01/22 [History] Cetirizine HCl [Zyrtec] 10 mg PO DAILY 03/01/22 [History] Clobetasol Propionate [Clobex .05% Shampoo] 1 applic TOPICAL TUSA 03/01/22 [History] Ergocalciferol (Vitamin D2) [Drisdol (50,000 Iu)] 1,250 mcg PO QMONTHLY 03/01/22 [History] Fluocinonide Solution 0.05% 1 applic TOPICAL HS PRN 03/01/22 [History] Ketoconazole 2% Shampoo [Nizoral] 1 applic TOPICAL TUSA 03/01/22 [History] Loteprednol Etabonate [Lotemax] 1 drop BOTH EYES BID 03/01/22 [History] Metoprolol Tartrate [Lopressor] 25 mg PO BID 03/01/22 [History] Olopatadine HCl [Patanol 0.1%] 1 drop BOTH EYES Q12H PRN 03/01/22 [History] Potassium Chloride ER [K-Dur 10] 10 meq PO HS 03/01/22 [History] Rivaroxaban [Xarelto] 20 mg PO W/SUPPER 03/01/22 [History] Sennosides/Docusate Sodium [Senna-S 8.6-50 mg Tablet] 2 tab PO BID 03/01/22 [History] Sertraline [Zoloft] 100 mg PO BID@0800,1600 03/01/22 [History] Vit C/E/Zn/Coppr/Lutein/Zeaxan [Preservision Areds 2 Softgel] 1 cap PO BID 03/01/22 [History] bisacodyL [Dulcolax] 10 mg RECTAL DAILY PRN 03/01/22 [History] hydrOXYzine HCL 10 mg PO HS 03/01/22 [History] polyethylene glycoL 3350 [Miralax] 17 gm PO DAILY 03/01/22 [History] Cephalexin [Keflex] 500 mg PO Q6HR 1 Days #12 cap 03/05/22 [Rx] HYDROcodone/APAP 7.5-325MG [[place] 7.5-325] 1 tab PO Q6H PRN #12 tab 03/05/22 [Rx] clonazePAM [KlonoPIN] 1 mg PO TID@0500,1300,2000 #9 tab 03/05/22 [Rx] Follow up Appointment(s)/Referral(s): Rusty Garcia DO [Primary Care Provider] - 1-2 days
[2022-03-05 14:27] VITALS: BP 114/64; PULSE 62; RESP 20; TEMP 98.1
== END 2022-03-05 15:05 | DRG 689 ==
LOC: EC 18:02 → 3SCARD 20:53 → 5NMEDONC 03-02 12:52
PROVIDERS: ADMIT Hospitalist; ATTEND Hospitalist
DX: N30.00 Acute cystitis without hematuria (principal); G93.41 Metabolic encephalopathy; I69.354 Hemiplegia and hemiparesis following cerebral infarction affecting left non-dominant side; F05 Delirium due to known physiological condition; Z68.42 Body mass index [BMI] 45.0-49.9, adult; H53.462 Homonymous bilateral field defects, left side; G93.89 Other specified disorders of brain; F01.50 Vascular dementia, unspecified severity, without behavioral disturbance, psychotic disturbance, mood disturbance, and anxiety; I48.0 Paroxysmal atrial fibrillation; I69.398 Other sequelae of cerebral infarction; E66.9 Obesity, unspecified; Z28.310 Unvaccinated for COVID-19; B96.1 Klebsiella pneumoniae [K. pneumoniae] as the cause of diseases classified elsewhere; I69.318 Other symptoms and signs involving cognitive functions following cerebral infarction; E78.5 Hyperlipidemia, unspecified; L21.9 Seborrheic dermatitis, unspecified; K21.9 Gastro-esophageal reflux disease without esophagitis; K59.00 Constipation, unspecified; I44.0 Atrioventricular block, first degree; R00.1 Bradycardia, unspecified; Z79.01 Long term (current) use of anticoagulants; Z79.899 Other long term (current) drug therapy; Z86.711 Personal history of pulmonary embolism; Z85.42 Personal history of malignant neoplasm of other parts of uterus; Z87.891 Personal history of nicotine dependence; Z88.0 Allergy status to penicillin
CPT/HCPCS: 36415; 70450; 70496; 70498; 71045; 80053; 81001; 84484; 85025; 85610; 85730; 87077; 87086; 87186; 93005; 95816; 96365; 99285

== ENCOUNTER → 2022-04-29 | Outpatient (CLI) | payer MEDICARE, BC ==
[2022-04-29 10:15] LABS: African American GFR (CKD) >90 (>60 ml/min/1.73 sqM); Blood Urea Nitrogen 12 mg/dL (7-17); Non-African American GFR(CKD) 86 (>60 ml/min/1.73 sqM)
--- NOTE | 2022-04-29 11:53 | CT ---
EXAMINATION TYPE: CT abdomen pelvis w con DATE OF EXAM: 04/29/2022 COMPARISON: 08/30/2019 HISTORY: uterine ca CT DLP: 1993.9 mGycm CONTRAST: CT scan of the abdomen and pelvis is performed with Oral Contrast and with IV Contrast, patient injec xu with 70cc mL of Isovue 300. FINDINGS: LUNG BASES-: No visible nodule. No infiltrate. LIVER/GB: Multiple small gallstones are noted within the gallbladder lumen. No space occupying hep atic lesion. Biliary tree is of normal caliber. PANCREAS: No inflammation. No distinct mass. SPLEEN: No splenic enlargement. No lesion seen. ADRENALS: No nodule. No thickening. KIDNEYS/BLADDER: No hydronephrosis. No nephrolithiasis. 1 cm simple cyst upper pole right kidney. A dditional simple cyst lower pole left kidney. Urinary bladder grossly unremarkable. BOWEL: The appendix is surgically absent. Normal bowel caliber. No inflammation. GENITAL ORGANS: Surgical absence of the uterus. Vaginal cuff is unremarkable. No ovarian masses seen . LYMPH NODES: No greater than 1cm abdominal or pelvic lymph nodes are appreciated. AORTA: No significant abnormality. OSSEOUS STRUCTURES: No significant abnormality is seen. OTHER: No significant additional abnormality is seen. IMPRESSION: 1. No evidence for recurrence disease or metastatic disease to the abdomen or pelvis. 2. Cholelithiasis.
== END | disposition home or self-care (01) ==
LOC: RADCTMAIN 09:16
PROVIDERS: ATTEND Family Medicine
DX: C55 Malignant neoplasm of uterus, part unspecified (principal); K80.20 Calculus of gallbladder without cholecystitis without obstruction
CPT/HCPCS: 82565; 84520; 74177; 36415; Q9967

== ENCOUNTER 2022-08-17 02:48 | Emergency (ER) | payer BC, MEDICARE ==
[2022-08-17 03:51] LABS: Basophils % (A) 0 %; Eosinophils # (A) 0.4 k/uL (0-0.7); Eosinophils % (A) 4 %; HCT 42.8 % (34.0-46.0); HGB 13.9 gm/dL (11.4-16.0); Lymphocytes # (A) 1.8 k/uL (1.0-4.8); Lymphocytes % (A) 18 %; MCH 30.9 pg (25.0-35.0); MCHC 32.5 g/dL (31.0-37.0); MCV 94.8 fL (80.0-100.0); Mean Platelet Volume 7.1; Monocytes # (A) 0.6 k/uL (0-1.0); Monocytes % (A) 6 %; Neutrophils % (A) 71 %; Platelet Count 279 k/uL (150-450); RBC 4.51 m/uL (3.80-5.40); RDW 13.3 % (11.5-15.5); WBC 9.9 k/uL (3.8-10.6)
--- NOTE | 2022-08-17 04:00 | ED ---
General Adult HPI - General Chief complaint: Vaginal Bleeding Stated complaint: vaginal bleed Time Seen by Provider: 08/17/22 02:49 Source: patient, EMS Mode of arrival: EMS Limitations: no limitations - History of Present Illness Initial comments: This is a 77-year-old female with an extensive past medical history including previous uterine cancer status post hysterectomy and removal of her cervix, previous PE and CVA on Xarelto presents emergency department via EMS from nursing facility for increasing vaginal bleeding. It was reported that the [facility] se was doing rounds and the patient and went to go change the patient and noted a significant amount of blood in her brief. They're worsening edema clots noted and she did contact the physician in charge who recommended she come to the emergency department. On evaluation, the patient was ANO 2 and was at her baseline. The patient denied complain of any pain and did not even know that she had vaginal bleeding. The patient was pleasantly confused. 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 There was no further history regarding this tumor as well as any po tential workup. It was reported the patient did have any vaginal bleeding until tonight. The patient was resting in bed comfortably. - Related Data Home Medications Medication Instructions Recorded Confirmed Artificial Tears-Hypromellose 1 drops BOTH EYES Q4H PRN 06/06/19 03/01/22 [Artificial Tear Drops] Atorvastatin [Lipitor] 40 mg PO HS 06/06/19 03/01/22 Omeprazole 20 mg PO DAILY 06/06/19 03/01/22 Calcium Carbonate/Vitamin D3 1 tab PO TID@0800,1200,1800 03/01/22 03/01/22 [Calcium 600-Vit D3 5 Mcg (200 Iu)] Cetirizine HCl [Zyrtec] 10 mg PO DAILY 03/01/22 03/01/22 Clobetasol Propionate [Clobex .05% 1 applic TOPICAL TUSA 03/01/22 03/01/22 Shampoo] Ergocalciferol (Vitamin D2) 1,250 mcg PO QMONTHLY 03/01/22 03/01/22 [Drisdol (50,000 Iu)] Fluocinonide Solution 0.05% 1 applic TOPICAL HS PRN 03/01/22 03/01/22 Ketoconazole 2% Shampoo [Nizoral] 1 applic TOPICAL TUSA 03/01/22 03/01/22 Loteprednol Etabonate [Lotemax] 1 drop BOTH EYES BID 03/01/22 03/01/22 Metoprolol Tartrate [Lopressor] 25 mg PO BID 03/01/22 03/01/22 Olopatadine HCl [Patanol 0.1%] 1 drop BOTH EYES Q12H PRN 03/01/22 03/01/22 Potassium Chloride ER [K-Dur 10] 10 meq PO HS 03/01/22 03/01/22 Rivaroxaban [Xarelto] 20 mg PO W/SUPPER 03/01/22 03/01/22 Sennosides/Docusate Sodium 2 tab PO BID 03/01/22 03/01/22 [Senna-S 8.6-50 mg Tablet] Sertraline [Zoloft] 100 mg PO BID@0800,1600 03/01/22 03/01/22 Vit C/E/Zn/Coppr/Lutein/Zeaxan 1 cap PO BID 03/01/22 03/01/22 [Preservision Areds 2 Softgel] bisacodyL [Dulcolax] 10 mg RECTAL DAILY PRN 03/01/22 03/01/22 hydrOXYzine HCL 10 mg PO HS 03/01/22 03/01/22 polyethylene glycoL 3350 [Miralax] 17 gm PO DAILY 03/01/22 03/01/22 Previous Rx's Medication Instructions Recorded Cephalexin [Keflex] 500 mg PO Q6HR 1 Days #12 cap 03/05/22 HYDROcodone/APAP 7.5-325MG [Hume 1 tab PO Q6H PRN #12 tab 03/05/22 7.5-325] clonazePAM [KlonoPIN] 1 mg PO TID@0500,1300,2000 #9 tab 03/05/22 Allergies Allergy/AdvReac Type Severity Reaction Status Date / Time Penicillins Allergy Rash/Hives Verified 07/08/19 14:54 Review of Systems ROS Statement: Those systems with pertinent positive or pertinent negative responses have been documented in the HPI. ROS Other: All systems not noted in ROS Statement are negative. Past Medical History Past Medical History: Dementia, Hyperlipidemia Additional Past Medical History / Comment(s): stroke (05/2019) left side paralysis History of Any Multi-Drug Resistant Organisms: None Reported Past Surgical History: No Surgical Hx Reported Past Anesthesia/Blood Transfusion Reactions: No Reported Reaction Past Psychological History: No Psychological Hx Reported Smoking Status: Unknown if ever smoked Past Alcohol Use History: None Reported Past Drug Use History: None Reported - Past Family History Father Family Medical History: Unable to Obtain General Exam Limitations: no limitations, altered mental status (At baseline) General appearance: alert, in no apparent distress Head exam: Present: atraumatic, normocephalic, normal inspection Eye exam: Present: normal appearance, PERRL Pupils: Present: normal accommodation ENT exam: Present: normal exam, normal oropharynx, mucous membranes moist Neck exam: Present: normal inspection, full ROM Respiratory exam: Present: normal lung sounds bilaterally Cardiovascular Exam: Present: regular rate, normal rhythm, normal heart sounds GI/Abdominal exam: Present: soft, tenderness (Tenderness over the supra pubic region), normal bowel sounds External exam: Present: other (Significant amount of blood noted on the external exam. There were clots noted. The patient denied of any acute pain.) Extremities exam: Present: normal inspection, full ROM Back exam: Present: normal inspection, full ROM Neurological exam: Present: alert, oriented X3, CN II-XII intact Psychiatric exam: Present: normal affect, normal mood Skin exam: Present: warm, dry Course Vital Signs 08/17/22 08/17/22 02:50 04:26 Temperature 97.6 F Pulse Rate 60 82 Respiratory 16 16 Rate Blood Pressure 113/73 123/73 O2 Sat by Pulse 95 95 Oximetry Medical Decision Making - Medical Decision Making Was pt. sent in by a medical professional or institution (, PA, BIZTALK SOFTWARE DEVELOPER, urgent care, hospital, or intermediate...) When possible be specific @ -Yes, nursing facility Did you speak to anyone other than the patient for history (EMS, parent, family, police, friend...)? What history was obtained from this source @ -No Did you review nursing and triage notes (agree or disagree)? Why? @ -I reviewed and agree with nursing and triage notes Were old charts reviewed (outside hosp., previous admission, EMS record, old EKG, old radiological studies, urgent care reports/EKG's, intermediate records)? Report findings @ -Yes, old charts were reviewed that were with the patient's chart from nursing facility including old imaging from several months ago. Differential Diagnosis (chest pain, altered mental status, abdominal pain women, abdominal pain men, vaginal bleeding, weakness, fever, dyspnea, syncope, headache, dizziness, GI bleed, back pain, seizure, CVA, palpatations, mental health)? @ -Worsening vaginal tumor, vaginal abrasion, hematuria EKG interpreted by me (3pts min.). @ -None X-rays interpreted by me (1pt min.). @ -None done CT interpreted by me (1pt min.). @ -CT abdomen and pelvis with IV contrast was obtained but the official read was to pending at this time. U/S interpreted by me (1pt. min.). @ -A transvaginal ultrasound was obtained at this time however was still pending. What testing was considered but not performed or refused? (CT, X-rays, U/S, labs)? Why? @ -None What meds were considered but not given or refused? Why? @ -None Did you discuss the management of the patient with other professionals (professionals i.e. , PA, BIZTALK SOFTWARE DEVELOPER, lab, RT, psych nurse, nephrology social worker, trailer technician, teacher, restoration officer, manager case)? Give summary @ -Yes, Dr. Trinidad was contacted regarding the patient and he did recommend transfer to a higher level of care for a gynecologic oncology service. She did state that there was no alternative here in the hospital for treatment and we could not pack the vagina sufficiently and discharge the patient to the nursing facility as this would be a significant risk for toxic shock syndrome. Was smoking cessation discussed for >3mins.? @ -No Was critical care preformed (if so, how long)? @ -No Were there social determinants of health that impacted care today? How? (Homelessness, low income, unemployed, alcoholism, drug addiction, transportation, low edu. Level, literacy, decrease access to med. care, penitentiary, rehab)? @ -No Was there de-escalation of care discussed even if they declined (Discuss DNR or withdrawal of care, Hospice)? DNR status @ -No What co-morbidities impacted this encounter? (DM, HTN, Smoking, COPD, CAD, Cancer, CVA, ARF, Chemo, Hep., AIDS, mental health diagnosis, sleep apnea, morbi d obesity)? @ -Previous uterine cancer status post hysterectomy and cervical removal Was patient admitted / discharged? Hospital course, mention meds given and ro mi, prescriptions, significant lab abnormalities, going to OR and other pertinent info. @ -The patient was seen and evaluated in emergency department. Physical exam, the patient was resting in bed without any acute distress. Vital signs admission were stable. Laboratory workup was also obtained at this time and was within normal limits. Physical exam did demonstrate large amount of blood on the external exam from the vaginal vault with clots. 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 Due to the patient requiring likely admission, a complete pelvic ultrasound, transvaginal was ordered as well. Official reads were pending. Due to the patient's continued vaginal bleeding and the likely setting of a vaginal tumor, myself and Dr. Trinidad agreed that the patient would need a higher level of care including a service for gynecology oncology. The patient was accepted for transfer at [facility] emergency room by Dr. Wilkes. The patient and her were told this plan and were agreeable. The patient was transferred in stable condition. Undiagnosed new problem with uncertain prognosis? @ -No Drug Therapy requiring intensive monitoring for toxicity (Heparin, Nitro, Insulin, Cardizem)? @ -No Were any procedures done? @ -No Diagnosis/symptom? @ -Persistent vaginal bleeding likely secondary to vaginal tumor Acute, or Chronic, or Acute on Chronic? @ -Acute Uncomplicated (without systemic symptoms) or Complicated (systemic symptoms)? @ -Complicated Side effects of treatment? @ -No Exacerbation, Progression, or Severe Exacerbation? @ -No Poses a threat to life or bodily function? How? (Chest pain, [place], [place], pneumonia, PE, COPD, DKA, ARF, appy, cholecystitis, CVA, Diverticulitis, Homicidal, Suicidal, threat to staff... and all critical care pts) @ -Yes, continue bleeding can lead to permanent damage and possible . - Lab Data Result diagrams: 08/17/22 03:22 08/17/22 03:22 Lab Results 08/17/22 08/17/22 08/17/22 Range/Units 03:20 03:22 03:22 WBC 9.9 (3.8-10.6) k/uL RBC 4.51 (3.80-5.40) m/uL Hgb 13.9 (11.4-16.0) gm/dL Hct 42.8 (34.0-46.0) % MCV 94.8 (80.0-100.0) fL MCH 30.9 (25.0-35.0) pg MCHC 32.5 (31.0-37.0) g/dL RDW 13.3 (11.5-15.5) % Plt Count 279 (150-450) k/uL MPV 7.1 Neutrophils % 71 % Lymphocytes % 18 % Monocytes % 6 % Eosinophils % 4 % Basophils % 0 % Neutrophils # 7.0 (1.3-7.7) k/uL Lymphocytes # 1.8 (1.0-4.8) k/uL Monocytes # 0.6 (0-1.0) k/uL Eosinophils # 0.4 (0-0.7) k/uL Basophils # 0.0 (0-0.2) k/uL PT (9.0-12.0) sec INR (<1.2) APTT (22.0-30.0) sec Sodium 136 L (137-145) mmol/L Potassium 4.8 (3.5-5.1) mmol/L Chloride 98 (98-107) mmol/L Carbon Dioxide 29 (22-30) mmol/L Anion Gap 9 mmol/L BUN 13 (7-17) mg/dL Creatinine 0.50 L (0.52-1.04) mg/dL Est GFR (CKD-EPI)AfAm >90 (>60 ml/min/1.73 sqM) Est GFR (CKD-EPI)NonAf >90 (>60 ml/min/1.73 sqM) Glucose 104 H (74-99) mg/dL Calcium 8.9 (8.4-10.2) mg/dL Magnesium 1.9 (1.6-2.3) mg/dL Total Bilirubin 1.1 (0.2-1.3) mg/dL AST 55 H (14-36) U/L ALT 29 (4-34) U/L Alkaline Phosphatase 145 H (38-126) U/L Total Protein 7.5 (6.3-8.2) g/dL Albumin 3.8 (3.5-5.0) g/dL Lipase 123 (23-300) U/L Urine Color Urine Appearance (Clear) Urine RBC (0-5) /hpf Urine WBC (0-5) /hpf Blood Type Blood Type Confirm AB Positive Blood Type Recheck Bld Type Recheck Status Antibody Screen Spec Expiration Date 08/17/22 08/17/22 08/17/22 Range/Units 03:22 03:22 03:22 WBC (3.8-10.6) k/uL RBC (3.80-5.40) m/uL Hgb (11.4-16.0) gm/dL Hct (34.0-46.0) % MCV (80.0-100.0) fL MCH (25.0-35.0) pg MCHC (31.0-37.0) g/dL RDW (11.5-15.5) % Plt Count (150-450) k/uL MPV Neutrophils % % Lymphocytes % % Monocytes % % Eosinophils % % Basophils % % Neutrophils # (1.3-7.7) k/uL Lymphocytes # (1.0-4.8) k/uL Monocytes # (0-1.0) k/uL Eosinophils # (0-0.7) k/uL Basophils # (0-0.2) k/uL PT 11.6 (9.0-12.0) sec INR 1.1 (<1.2) APTT 28.9 (22.0-30.0) sec Sodium (137-145) mmol/L Potassium (3.5-5.1) mmol/L Chloride (98-107) mmol/L Carbon Dioxide (22-30) mmol/L Anion Gap mmol/L BUN (7-17) mg/dL Creatinine (0.52-1.04) mg/dL Est GFR (CKD-EPI)AfAm (>60 ml/min/1.73 sqM) Est GFR (CKD-EPI)NonAf (>60 ml/min/1.73 sqM) Glucose (74-99) mg/dL Calcium (8.4-10.2) mg/dL Magnesium (1.6-2.3) mg/dL Total Bilirubin (0.2-1.3) mg/dL AST (14-36) U/L ALT (4-34) U/L Alkaline Phosphatase (38-126) U/L Total Protein (6.3-8.2) g/dL Albumin (3.5-5.0) g/dL Lipase (23-300) U/L Urine Color Dark Red Urine Appearance Turbid H (Clear) Urine RBC >182 H (0-5) /hpf Urine WBC 11 H (0-5) /hpf Blood Type AB Positive Blood Type Confirm Blood Type Recheck No Previous Record Bld Type Recheck Status CABO Indicated Antibody Screen NEGATIVE Spec Expiration Date 08/20/20222321 Disposition Clinical Impression: Vaginal bleeding, Vaginal tumor Disposition: OTHER INSTITUTION NOT DEFINED Condition: Stable Referrals: Rusty Garcia DO [Primary Care Provider] - 1-2 days Time of Disposition: 06:30 - Out of Hospital Transfer - Req. Specs Out of Hospital Transfer - Requested Specifics: Other Emergency Center ([facility], ER)
[2022-08-17 04:05] LABS: ALT 29 U/L (4-34); AST 55 U/L (14-36); African American GFR (CKD) >90 (>60 ml/min/1.73 sqM); Albumin 3.8 g/dL (3.5-5.0); Alkaline Phosphatase 145 U/L (38-126); Anion Gap 9 mmol/L; Blood Urea Nitrogen 13 mg/dL (7-17); Calcium 8.9 mg/dL (8.4-10.2); Carbon Dioxide 29 mmol/L (22-30); Chloride 98 mmol/L (98-107); Glucose 104 mg/dL (74-99); Lipase 123 U/L (23-300); Magnesium 1.9 mg/dL (1.6-2.3); Non-African American GFR(CKD) >90 (>60 ml/min/1.73 sqM); Sodium 136 mmol/L (137-145); Total Bilirubin 1.1 mg/dL (0.2-1.3); Total Protein 7.5 g/dL (6.3-8.2)
[2022-08-17 04:34] LABS: Potassium 4.8 mmol/L (3.5-5.1)
[2022-08-17 04:41] LABS: INR 1.1 (<1.2); Partial Thromboplastin Time 28.9 sec (22.0-30.0); Prothrombin Time 11.6 sec (9.0-12.0)
[2022-08-17 06:17] LABS: WBC,Urine 11 /hpf (0-5)
[2022-08-17 06:27] LABS: Appearance,Urine Turbid (Clear)
[2022-08-17 06:29] LABS: Color,Urine Dark Red; RBC,Urine >182 /hpf (0-5)
--- NOTE | 2022-08-17 07:22 | CT ---
EXAMINATION TYPE: CT abdomen pelvis w con DATE OF EXAM: 08/17/2022 COMPARISON: 04/29/2022 HISTORY: 77 year-old female abdominal pain and vaginal bleeding TECHNIQUE: Contiguous axial scanning of the abdomen and pelvis following administration of 100 ml Iso maikol 300 IV contrast. Delayed images through the kidneys and coronal/sagittal reconstructions perform ed. CT DLP: 2343.4 mGycm Automated exposure control for dose reduction was used. FINDINGS: Heart is borderline enlarged. Prominent strandy areas of atelectasis in the lower lungs. No pleural effusion. Small hiatal hernia. There may be mild fatty infiltration of the liver. No focal liver lesion seen. Portal venous system i s patent. Layering tiny stones/gravel within the nondistended gallbladder. Adrenal glands, spleen, and pancreas within normal limits. A couple benign-appearing renal cortical cysts measuring up to 1.4 cm on either side. Symmetric uptak e and excretion of contrast from both kidneys. Mild left-sided calcifications infrarenal abdominal aorta and iliac arteries. No dilated small bowel, free fluid, or free air. No mesenteric or retroperitoneal lymphadenopathy. Postsurgical changes right lower quadrant related to prior appendectomy. There is mild overall stool burden. Redundant sigmoid colon. No pericolonic inflammatory change. Bladder partially distended. There is a heterogeneous, irregular mass replacing the region of the uterus measuring 6.5 cm AP by 7. 0 cm craniocaudal by 5.9 cm wide. Suspect extension into the median and right paramedian posterior wa ll the bladder with soft tissue projecting into the lumen of the bladder. Neither ovary is clearly seen. A prominent 1.2 cm left obturator chain lymph node is nonspecific. Degenerated levoconvex scoliosis lumbar spine. IMPRESSION: 1. IRREGULAR, HETEROGENEOUSLY ENHANCING MASS REPLACING THE REGION OF THE UTERUS MEASURING 7.0 X 6.5 X 5.9 CM. SUSPECTED EXTENSION INTO THE POSTERIOR WALL OF THE BLADDER. 2. A NONSPECIFIC, MILDLY ENLARGED 1.2 CM LEFT OBTURATOR CHAIN LYMPH NODE. 3. SMALL HIATAL HERNIA AND MILD FATTY INFILTRATION OF THE LIVER.
[2022-08-17 07:42] VITALS: BP 140/68; PULSE 88; RESP 20; TEMP 98.2
--- NOTE | 2022-08-17 07:53 | US ---
EXAMINATION TYPE: US pelvic complete DATE OF EXAM: 08/17/2022 COMPARISON: CT same day CLINICAL INDICATION: Female, 77 years old with history of Vaginal bleeding, possible worsening tumor burden; Heavy vaginal bleeding, partial hysterectomy. Vaginal mass per patient's family member TECHNIQUE: Transabdominal (TA). Date of LMP: unknown EXAM MEASUREMENTS: Uterus: Surgically absent Endometrial Stripe: Surgically absent Right Ovary: unable to visualize Left Ovary: unable to visualize 1. Uterus: Surgically absent. However, there is a complex heterogeneous mass in the expected location of the uterus measuring 5.6 x 6.1 x 6.3cm. It directly abuts the posterior wall of the bladder which shows some contour irregularity, for example, image 3. 2. Endometrium: Surgically absent 3. Right Ovary: Obscured by overlying bowel gas or surgically absent 4. Left Ovary: Obscured by overlying bowel gas or surgically absent. 5. Bilateral Adnexa: wnl IMPRESSION: History states partial hysterectomy. However, there is an irregular solid mass measuring 6.3 cm in th e expected location of the uterus. Suspect extension into the adjacent posterior wall of the bladder.
== END 2022-08-17 07:43 | disposition other institution (70) ==
LOC: EC 02:48
DX: D49.59 Neoplasm of unspecified behavior of other genitourinary organ (principal); E78.5 Hyperlipidemia, unspecified; Z79.01 Long term (current) use of anticoagulants; Z85.42 Personal history of malignant neoplasm of other parts of uterus; Z86.711 Personal history of pulmonary embolism; Z86.73 Personal history of transient ischemic attack (TIA), and cerebral infarction without residual deficits; Z88.0 Allergy status to penicillin; Z90.711 Acquired absence of uterus with remaining cervical stump; Z90.721 Acquired absence of ovaries, unilateral; Z79.899 Other long term (current) drug therapy
CPT/HCPCS: 36415; 86900; 86901; 80053; 83690; 83735; 85025; 85610; 85730; 86850; 81001; 76856; 74177; 99285; Q9967